=== PATIENT | male | born 1960 | race Caucasian/White ===

== ENCOUNTER → 2017-05-02 | Outpatient (CLI) | payer BC ==
[~2017-05-02] MED LIST: ASPI325T39 PO; ATEN50TA8 PO; POTA-335 PO; SIMV40TA2 PO
--- NOTE | 2017-05-02 11:20 | DIAGNOSTIC IMAGING REPORT ---
TWO VIEW CHEST CLINICAL HISTORY: Cough. FINDINGS: PA and lateral chest radiographs are compared to study dated 05/14/2014. The heart is enlarged and there is atherosclerotic calcification of the thoracic aorta. The pulmonary vasculature is noncongested. Bibasilar opacities are typical in appearance for atelectasis. No airspace consolidation is seen typical for pneumonia and there is no pleural effusion. There is no pneumothorax. The bony thorax appears intact. Fusion hardware is seen in the lower cervical spine. IMPRESSION: Cardiomegaly with no acute cardiopulmonary abnormality. Electronically signed by: Quinton Lewis M.D. 05/02/2017 11:18 AM Dictated Date/Time: 05/02/2017 11:17 AM
== END | disposition home or self-care (01) ==
LOC: C.RAD1850 11:12
PROVIDERS: ATTEND Student in an Organized Health Care Education/Training Program
DX: R05 Cough (principal); I51.7 Cardiomegaly

== ENCOUNTER → 2017-06-05 | Outpatient (CLI) | payer OTHER ==
--- NOTE | 2017-06-05 12:53 | DIAGNOSTIC IMAGING REPORT ---
CT LUNG SCREENING, LOW DOSE WITH COMPUTER-AIDED DETECTION (CAD) CLINICAL HISTORY: COPD. Tobacco abuse. COMPARISON STUDY: No previous studies for comparison. CT DOSE: 66.80 mGycm TECHNIQUE: Low-dose helical CT was acquired without intravenous contrast from lung apices to bases and reconstructed at 2.5 mm every 2 mm. CAD was utilized for this study. A dose lowering technique was utilized adhering to the principles of ALARA. FINDINGS: Thyroid: Imaged portions of the thyroid gland are normal in appearance. Thoracic aorta: The thoracic aorta is normal in course and caliber, noting standard 3 vessel arch anatomy. Heart: There are mild coronary artery calcifications Lungs and pleural spaces: There is no focal pulmonary consolidation. There are no suspicious pulmonary masses. Mediastinum: There is no evidence of pathologic mediastinal lymphadenopathy Adriana: There is no evidence of pathologic hilar adenopathy given the limitations of a noncontrast study Axilla: Clear. Upper abdomen: Partially visualized upper abdominal viscera is within normal limits. Skeletal structures: There are no lytic or blastic osseous lesions. IMPRESSION: No suspicious pulmonary masses. Continue annual lung cancer screening.. CAD FINDINGS: Overall Lung RADS Category: 1 Lung RADS Management Recommendation: Continue annual lung cancer screening. Lung RADS Follow Up Date: 2018-06-05 Lung RADS Nodule ID: Electronically signed by: Demetrius Jacobo M.D. 06/05/2017 12:51 PM Dictated Date/Time: 06/05/2017 12:47 PM
== END | disposition home or self-care (01) ==
LOC: C.CTS 12:07
PROVIDERS: ATTEND Family Medicine
DX: J44.9 Chronic obstructive pulmonary disease, unspecified (principal); F17.200 Nicotine dependence, unspecified, uncomplicated

== ENCOUNTER → 2017-12-17 | Outpatient (CLI) | payer OTHER ==
--- NOTE | 2017-12-18 12:52 | PULMONARY FUNCTION TEST ---
Spirometry is consistent with a mild obstructive pattern. Repeat study done following bronchodilator showed mild, but not significant improvement in function. Flow volume loops are consistent with spirometric findings.
== END | disposition home or self-care (01) ==
LOC: C.RC 10:09
PROVIDERS: ATTEND Student in an Organized Health Care Education/Training Program
DX: Z72.0 Tobacco use (principal)

== ENCOUNTER 2021-02-07 12:44 | Inpatient (IN) ==
[2021-02-07] MEDS ORDERED: diphenhydrAMINE 50 MG/ML VIAL IV STA (13:09)
[2021-02-07] MEDS ORDERED: PROCHLORPERAZINE 5 MG/ML 2 ML VIAL IV STA (13:09)
[2021-02-07] MEDS ORDERED: ACETAMINOPHEN 1000 MG/100 ML IV IV STA (13:09)
[2021-02-07] MEDS ORDERED: dexAMETHasone**PF** 10 MG/ML VIAL IV ONE (13:09)
[2021-02-07] MEDS ORDERED: fentaNYL citrate 100 MCG/2 ML VIAL IV STA (13:09)
[2021-02-07] MEDS ORDERED: SODIUM CHLORIDE 0.9% 1000ML 1,000 ML IV SCH (13:15)
--- NOTE | 2021-02-07 13:25 | Emergency Department Note ---
Impression & Plan Accidental aspirin overdose, Headache, Tachypnea, Acute dehydration, Acidosis ED Provider Note NAME: KIMBERLY FRITZ AGE: 60 SEX: M : 1960 ARRIVES VIA: Ambulance INFORMANT: [Patient] ED PROVIDER(S): [Quinton Bobo MD] CHIEF COMPLAINT: Headache HISTORY OF PRESENT ILLNESS: The patient is a 60-year-old male who complains of intermittent left-sided headache over the last couple weeks. He has been using aspirin for the headache. Sometimes, he has taken 10 aspirin over just an hour or 2. The patient's headache had resolved for a few days and then restarted this morning at 8:00, about 5 hours ago. The headache is left-sided and a 9/10. No nausea, no vomiting, no arm or leg weakness. He has not had fever, chills, cough or congestion. He states he does not typically get headaches. The patient did receive morphine in route with minimal to no relief of his pain. REVIEW OF SYSTEMS: See HPI for pertinent positives and negatives. A total of ten systems were reviewed and were otherwise negative. PMHx/PSHx: See Below SOCIAL HISTORY: See Below. PHYSICAL EXAM: GENERAL: Patient is in no acute distress. HEENT: No acute trauma, normocephalic atraumatic, mucous membranes moist, no nasal congestion, no scleral icterus. Pupils are somewhat small but equal bilaterally. NECK: No stridor, no adenopathy, no meningismus, trachea is midline. LUNGS: Clear to auscultation bilaterally, no wheeze, no rhonchi, breath sounds equal. HEART: Without murmurs gallops or rubs, regular rate and rhythm. ABDOMEN: Soft, nontender, bowel sounds positive, no hernias, no peritonitis. EXTREMITIES: No cyanosis or edema, full range of motion of all the joints without pain or difficulty, no signs for acute trauma. NEUROLOGIC: Oriented x 3, no acute motor or sensory deficits, no focal weakness. SKIN: No rash, no jaundice, no diaphoresis. DIFFERENTIAL DIAGNOSIS: Migraine headache, meningitis, sinusitis, CO exposure, ICH, SAH, infection, tumor, sinus thrombosis, arterial dissection, as well as other pathologies. EMERGENCY DEPARTMENT COURSE/PROCEDURES: Critical Care Note: I have personally spent 52 minutes of critical care time in the direct management of this patient. This includes bedside care, interpretation of diagnostic studies, and testing, discussion with consultants, patient, and family members, and other required patient management activities. This 52 minutes is in excess of all separately billable procedures. MEDICAL DECISION MAKING: There is no leukocytosis or concerning anemia. There is a normal platelet count. Sed rate was not significantly elevated. ABG did demonstrate a mild acidosis with a pH of 7.31. No significant electrolyte abnormality other than a slight elevation to the BUN which is likely from some dehydration. No kidney failure. No concerning liver enzyme elevation. Urinalysis does not show infection. Aspirin level was basically undetectable. Lyme disease testing was negative. Aspirin level was elevated, a repeat aspirin level a few hours later showed an even higher value. Chest film did not show pneumonia or CHF. Brain CT showed no acute bleed or mass-effect. CT angio of the head and neck were per formed, there was no aneurysm, no clot. No findings of dissection. I was called to see the patient as he seemed in distress. He received IV saline 1.5 L. He was given IV Compazine, IV fentanyl, IV Benadryl, IV Decadron, IV Tylenol, he received a DuoNeb. I did speak with poison control. They felt that if the patient showed a decrease in his aspirin level with time that discharge would be appropriate. As the patient was breathing quickly, as he was slightly acidotic, as his aspirin level actually increased during his ER stay, a hospital stay and further monitoring/care was felt warranted. I spoke to the patient, I talked with the case checker. The on-call hospitalist was consulted. Past Med/Surg History Medical History Cluster headache Degenerative disc disease Dyslipidemia Hypertension Lumbar stenosis with neurogenic claudication (01/15/14) Obstructive sleep apnea Surgical History History of cardiac cath History of coronary artery bypass graft History of laminectomy Social History Smoking Status: Current every day smoker Tobacco Type: Cigarettes Cigarettes Per Day: 4; Second Hand Exposure: No; Hx Alcohol Use: Yes Alcohol type: beer Hx Substance Use: No Preferred Language: Cambodian Hearing Ability: Normal Current Living Situation: Alone current occupation: Retired Feels Safe at Home: Yes Allergies Allergies Allergy/AdvReac Type Severity Reaction Status Date / Time No Known Allergies Allergy Verified 01/03/21 12:54 Home Meds Home Medications Medication Instructions Recorded Confirmed pramipexole 0.5 mg tablet (Mirapex) 1.5 mg PO QPM tab 01/04/19 02/07/21 candesartan 32 mg tablet 32 mg PO DAILY 01/13/19 02/07/21 carvedilol 6.25 mg tablet (Coreg) 6.25 mg PO BID 01/13/19 01/03/21 coenzyme Q10 400 mg capsule (Co 400 mg PO DAILY 01/13/19 01/03/21 Q-10) ezetimibe 10 mg tablet 10 mg PO DAILY 01/13/19 01/03/21 ferrous sulfate 325 mg (65 mg 325 mg PO DAILY tab 01/13/19 01/03/21 iron) tablet (iron) hydralazine 100 mg tablet 100 mg PO TID tab 01/13/19 02/07/21 hydrochlorothiazide 25 mg tablet 25 mg PO DAILY 01/13/19 01/03/21 spironolactone 25 mg tablet 25 mg PO DAILY 01/13/19 02/07/21 chlorthalidone 25 mg tablet 25 mg PO DAILY 02/07/21 02/07/21 fluticasone 500 mcg-salmeterol 50 1 inh INHALATION BID 02/07/21 02/07/21 mcg/dose blistr powdr for inhalation (Advair Diskus) labetalol 200 mg tablet 200 mg PO BID 02/07/21 02/07/21 Previous Rx's Medication Instructions Recorded oxycodone-acetaminophen 5 mg-325 1 tab PO Q8H PRN #35 tab 01/29/20 mg tablet (Percocet) Results & Data (ED) Vital Signs Vital Signs - 24 hr 02/07/21 12:31 02/07/21 13:00 02/07/21 13:09 Temperature 36.6 C Temperature Source Oral Pulse Rate 72 63 72 Pulse Rate [Right] Pulse Rate from SpO2 Sensor 62 Pulse Rhythm Regular Regular Pulse Strength Normal Respiratory Rate 24 24 32 H Respiratory Effort / Characteristics Non-Labored Respiratory Depth Deep Blood Pressure 188/96 H 180/87 H Blood Pressure Mean 126 118 Blood Pressure Position Lying Pulse Oximetry 98 93 93 Oxygen Delivery Method Nasal Cannula Room Air Oxygen Flow Rate Sepsis Recent Fever Within 48 Hours No Sepsis New/Unexplained Change in Mental Status No Sepsis Action Taken by Nursing No Action Required 02/07/21 14:06 02/07/21 14:13 02/07/21 15:03 Temperature Temperature Source Pulse Rate Pulse Rate [Right] Pulse Rate from SpO2 Sensor 82 81 80 Pulse Rhythm Pulse Strength Respiratory Rate Respiratory Effort / Characteristics Respiratory Depth Blood Pressure Blood Pressure Mean Blood Pressure Position Pulse Oximetry 99 99 97 Oxygen Delivery Method Oxygen Flow Rate Sepsis Recent Fever Within 48 Hours Sepsis New/Unexplained Change in Mental Status Sepsis Action Taken by Nursing 02/07/21 16:09 Temperature Temperature Source Pulse Rate Pulse Rate [Right] 86 Pulse Rate from SpO2 Sensor Pulse Rhythm Pulse Strength Respiratory Rate 20 Respiratory Effort / Characteristics Non-Labored Spontaneous Respiratory Depth Blood Pressure Blood Pressure Mean Blood Pressure Position Pulse Oximetry 98 Oxygen Delivery Method Nasal Cannula Oxygen Flow Rate 3 Sepsis Recent Fever Within 48 Hours Sepsis New/Unexplained Change in Mental Status Sepsis Action Taken by Skilled Nursing Medications Current Medication List: was personally reviewed by me Laboratory Data Attestation: I reviewed the patient's lab results. Result diagrams: 02/07/21 13:37 02/07/21 13:37 Lab Results 02/07/21 02/07/21 02/07/21 Range/Units 13:37 13:37 13:37 WBC 8.94 (4.8-10.8) K/uL RBC 4.51 L (4.7-6.1) M/uL Hgb 14.2 (14.0-18.0) g/dL POC Hgb (14.0-18.0) g/dl Hct 43.2 (42-52) % POC Hct (42-52) % MCV 95.8 (80-100) fL MCH 31.5 (25-34) pg MCHC 32.9 (32-36) g/dL RDW Std Deviation 51.5 H (36.4-46.3) fL RDW Coeff of Patrice 14.6 H (11.5-14.5) % Plt Count 137 (130-400) K/uL MPV 11.8 H (7.4-10.4) fL Immature Gran % (Auto) 0.2 % Neut % (Auto) 77.2 % Lymph % (Auto) 14.1 % Calhoun % (Auto) 3.6 % Eos % (Auto) 4.5 % Baso % (Auto) 0.4 % Neut # (Auto) 6.90 H (1.4-6.5) K/uL Lymph # (Auto) 1.26 (1.2-3.4) K/uL Calhoun # (Auto) 0.32 (0.11-0.59) K/uL Eos # (Auto) 0.40 (0-0.5) K/uL Baso # (Auto) 0.04 (0-0.2) K/uL Immature Gran # (Auto) 0.02 (0.00-0.02) K/uL ESR 15 (0-20) mm/hr ABG pH (7.35-7.45) ABG pCO2 (35-46) mmHg ABG pO2 (80-95) mmHg ABG HCO3 (19-24) mmol/L ABG O2 Saturation (90-95) % ABG Base Excess (-9-1.8) mEq/L Brendon Test (Pos) Carboxyhemoglobin % THgb Barometric Pressure mm/Hg Oxygen Given POC Sodium (135-144) mmol/L Sodium 140 (136-145) mmol/L POC Potassium (3.3-5.0) mmol/L Potassium 3.7 (3.5-5.1) mmol/L POC Chloride (101-112) mmol/L Chloride 107 (98-107) mmol/L Carbon Dioxide 25 (21-32) mmol/L POC Total CO2 (24-31) mmol/L Anion Gap 7.0 (3-11) POC Anion Gap (16-25) mmol/L POC BUN (7-18) mg/dl BUN 31 H (7-18) mg/dl Creatinine 0.97 (0.6-1.4) mg/dl POC Creatinine (0.6-1.3) mg/dl Est Cr Clr Drug Dosing Not Reportable Est GFR ( Amer) 96.6 ml/min Est GFR (Non-Af Amer) 83.3 ml/min BUN/Creatinine Ratio 31.9 H (10-20) Glucose 113 H (70-99) mg/dl POC Glucose (other) (70-99) mg/dl Calcium 8.9 (8.5-10.1) mg/dl POC Ioniz Calcium Sourav (1.12-1.32) mmol/l Total Bilirubin 0.4 (0.2-1) mg/dl AST 14 L (15-37) U/L ALT 25 (12-78) U/L Alkaline Phosphatase 113 (45-117) U/L Total Protein 7.3 (6.4-8.2) gm/dl Albumin 3.9 (3.4-5.0) gm/dl Globulin 3.4 (2.5-4.0) gm/dl Albumin/Globulin Ratio 1.2 (0.9-2) Urine Color Urine Appearance (Clear) Urine pH (4.5-7.5) Ur Specific [place] (1.000-1.030) Urine Protein (Negative) Urine Glucose (UA) (Negative) Urine Ketones (Negative) Urine Blood (Negative) Urine Nitrite (Negative) Urine Bilirubin (Negative) Urine Urobilinogen (Negative) Ur Leukocyte Esterase (Negative) Salicylates (2.8-20) mg/dl Acetaminophen (10-30) ug/ml Lyme Disease IgG Ab (Negative) Lyme Disease IgM Ab (Negative) 02/07/21 02/07/21 02/07/21 Range/Units 13:37 13:37 13:37 WBC (4.8-10.8) K/uL RBC (4.7-6.1) M/uL Hgb (14.0-18.0) g/dL POC Hgb (14.0-18.0) g/dl Hct (42-52) % POC Hct (42-52) % MCV (80-100) fL MCH (25-34) pg MCHC (32-36) g/dL RDW Std Deviation (36.4-46.3) fL RDW Coeff of Patrice (11.5-14.5) % Plt Count (130-400) K/uL MPV (7.4-10.4) fL Immature Gran % (Auto) % Neut % (Auto) % Lymph % (Auto) % Calhoun % (Auto) % Eos % (Auto) % Baso % (Auto) % Neut # (Auto) (1.4-6.5) K/uL Lymph # (Auto) (1.2-3.4) K/uL Calhoun # (Auto) (0.11-0.59) K/uL Eos # (Auto) (0-0.5) K/uL Baso # (Auto) (0-0.2) K/uL Immature Gran # (Auto) (0.00-0.02) K/uL ESR (0-20) mm/hr ABG pH (7.35-7.45) ABG pCO2 (35-46) mmHg ABG pO2 (80-95) mmHg ABG HCO3 (19-24) mmol/L ABG O2 Saturation (90-95) % ABG Base Excess (-9-1.8) mEq/L Brendon Test (Pos) Carboxyhemoglobin 0.0 % THgb Barometric Pressure mm/Hg Oxygen Given POC Sodium (135-144) mmol/L Sodium (136-145) mmol/L POC Potassium (3.3-5.0) mmol/L Potassium (3.5-5.1) mmol/L POC Chloride (101-112) mmol/L Chloride (98-107) mmol/L Carbon Dioxide (21-32) mmol/L POC Total CO2 (24-31) mmol/L Anion Gap (3-11) POC Anion Gap (16-25) mmol/L POC BUN (7-18) mg/dl BUN (7-18) mg/dl Creatinine (0.6-1.4) mg/dl POC Creatinine (0.6-1.3) mg/dl Est Cr Clr Drug Dosing Est GFR ( Amer) ml/min Est GFR (Non-Af Amer) ml/min BUN/Creatinine Ratio (10-20) Glucose (70-99) mg/dl POC Glucose (other) (70-99) mg/dl Calcium (8.5-10.1) mg/dl POC Ioniz Calcium Sourav (1.12-1.32) mmol/l Total Bilirubin (0.2-1) mg/dl AST (15-37) U/L ALT (12-78) U/L Alkaline Phosphatase (45-117) U/L Total Protein (6.4-8.2) gm/dl Albumin (3.4-5.0) gm/dl Globulin (2.5-4.0) gm/dl Albumin/Globulin Ratio (0.9-2) Urine Color Urine Appearance (Clear) Urine pH (4.5-7.5) Ur Specific [place] (1.000-1.030) Urine Protein (Negative) Urine Glucose (UA) (Negative) Urine Ketones (Negative) Urine Blood (Negative) Urine Nitrite (Negative) Urine Bilirubin (Negative) Urine Urobilinogen (Negative) Ur Leukocyte Esterase (Negative) Salicylates 18.8 (2.8-20) mg/dl Acetaminophen (10-30) ug/ml Lyme Disease IgG Ab Negative (Negative) Lyme Disease IgM Ab Negative (Negative) 02/07/21 02/07/21 02/07/21 Range/Units 13:37 13:45 14:14 WBC (4.8-10.8) K/uL RBC (4.7-6.1) M/uL Hgb (14.0-18.0) g/dL POC Hgb 14.6 (14.0-18.0) g/dl Hct (42-52) % POC Hct 43 (42-52) % MCV (80-100) fL MCH (25-34) pg MCHC (32-36) g/dL RDW Std Deviation (36.4-46.3) fL RDW Coeff of Patrice (11.5-14.5) % Plt Count (130-400) K/uL MPV (7.4-10.4) fL Immature Gran % (Auto) % Neut % (Auto) % Lymph % (Auto) % Calhoun % (Auto) % Eos % (Auto) % Baso % (Auto) % Neut # (Auto) (1.4-6.5) K/uL Lymph # (Auto) (1.2-3.4) K/uL Calhoun # (Auto) (0.11-0.59) K/uL Eos # (Auto) (0-0.5) K/uL Baso # (Auto) (0-0.2) K/uL Immature Gran # (Auto) (0.00-0.02) K/uL ESR (0-20) mm/hr ABG pH (7.35-7.45) ABG pCO2 (35-46) mmHg ABG pO2 (80-95) mmHg ABG HCO3 (19-24) mmol/L ABG O2 Saturation (90-95) % ABG Base Excess (-9-1.8) mEq/L Brendon Test (Pos) Carboxyhemoglobin % THgb Barometric Pressure mm/Hg Oxygen Given POC Sodium 140 (135-144) mmol/L Sodium (136-145) mmol/L POC Potassium 3.7 (3.3-5.0) mmol/L Potassium (3.5-5.1) mmol/L POC Chloride 105 (101-112) mmol/L Chloride (98-107) mmol/L Carbon Dioxide (21-32) mmol/L POC Total CO2 23 L (24-31) mmol/L Anion Gap (3-11) POC Anion Gap 17.0 (16-25) mmol/L POC BUN 30 H (7-18) mg/dl BUN (7-18) mg/dl Creatinine (0.6-1.4) mg/dl POC Creatinine 0.9 (0.6-1.3) mg/dl Est Cr Clr Drug Dosing Est GFR ( Amer) ml/min Est GFR (Non-Af Amer) ml/min BUN/Creatinine Ratio (10-20) Glucose (70-99) mg/dl POC Glucose (other) 113 H (70-99) mg/dl Calcium (8.5-10.1) mg/dl POC Ioniz Calcium Sourav 1.21 (1.12-1.32) mmol/l Total Bilirubin (0.2-1) mg/dl AST (15-37) U/L ALT (12-78) U/L Alkaline Phosphatase (45-117) U/L Total Protein (6.4-8.2) gm/dl Albumin (3.4-5.0) gm/dl Globulin (2.5-4.0) gm/dl Albumin/Globulin Ratio (0.9-2) Urine Color Yellow Urine Appearance Clear (Clear) Urine pH 5.5 (4.5-7.5) Ur Specific [place] 1.015 (1.000-1.030) Urine Protein Negative (Negative) Urine Glucose (UA) Negative (Negative) Urine Ketones Negative (Negative) Urine Blood Negative (Negative) Urine Nitrite Negative (Negative) Urine Bilirubin Negative (Negative) Urine Urobilinogen Negative (Negative) Ur Leukocyte Esterase Negative (Negative) Salicylates (2.8-20) mg/dl Acetaminophen 5 L (10-30) ug/ml Lyme Disease IgG Ab (Negative) Lyme Disease IgM Ab (Negative) 02/07/21 02/07/21 Range/Units 14:30 16:00 WBC (4.8-10.8) K/uL RBC (4.7-6.1) M/uL Hgb (14.0-18.0) g/dL POC Hgb (14.0-18.0) g/dl Hct (42-52) % POC Hct (42-52) % MCV (80-100) fL MCH (25-34) pg MCHC (32-36) g/dL RDW Std Deviation (36.4-46.3) fL RDW Coeff of Patrice (11.5-14.5) % Plt Count (130-400) K/uL MPV (7.4-10.4) fL Immature Gran % (Auto) % Neut % (Auto) % Lymph % (Auto) % Calhoun % (Auto) % Eos % (Auto) % Baso % (Auto) % Neut # (Auto) (1.4-6.5) K/uL Lymph # (Auto) (1.2-3.4) K/uL Calhoun # (Auto) (0.11-0.59) K/uL Eos # (Auto) (0-0.5) K/uL Baso # (Auto) (0-0.2) K/uL Immature Gran # (Auto) (0.00-0.02) K/uL ESR (0-20) mm/hr ABG pH 7.31 L (7.35-7.45) ABG pCO2 44 (35-46) mmHg ABG pO2 142 H (80-95) mmHg ABG HCO3 22 (19-24) mmol/L ABG O2 Saturation 98.8 H (90-95) % ABG Base Excess -4.7 (-9-1.8) mEq/L Brendon Test Pos (Pos) Carboxyhemoglobin % THgb Barometric Pressure 737.9 mm/Hg Oxygen Given 3L POC Sodium (135-144) mmol/L Sodium (136-145) mmol/L POC Potassium (3.3-5.0) mmol/L Potassium (3.5-5.1) mmol/L POC Chloride (101-112) mmol/L Chloride (98-107) mmol/L Carbon Dioxide (21-32) mmol/L POC Total CO2 (24-31) mmol/L Anion Gap (3-11) POC Anion Gap (16-25) mmol/L POC BUN (7-18) mg/dl BUN (7-18) mg/dl Creatinine (0.6-1.4) mg/dl POC Creatinine (0.6-1.3) mg/dl Est Cr Clr Drug Dosing Est GFR ( Amer) ml/min Est GFR (Non-Af Amer) ml/min BUN/Creatinine Ratio (10-20) Glucose (70-99) mg/dl POC Glucose (other) (70-99) mg/dl Calcium (8.5-10.1) mg/dl POC Ioniz Calcium Sourav (1.12-1.32) mmol/l Total Bilirubin (0.2-1) mg/dl AST (15-37) U/L ALT (12-78) U/L Alkaline Phosphatase (45-117) U/L Total Protein (6.4-8.2) gm/dl Albumin (3.4-5.0) gm/dl Globulin (2.5-4.0) gm/dl Albumin/Globulin Ratio (0.9-2) Urine Color Urine Appearance (Clear) Urine pH (4.5-7.5) Ur Specific [place] (1.000-1.030) Urine Protein (Negative) Urine Glucose (UA) (Negative) Urine Ketones (Negative) Urine Blood (Negative) Urine Nitrite (Negative) Urine Bilirubin (Negative) Urine Urobilinogen (Negative) Ur Leukocyte Esterase (Negative) Salicylates 20.3 H (2.8-20) mg/dl Acetaminophen (10-30) ug/ml Lyme Disease IgG Ab (Negative) Lyme Disease IgM Ab (Negative) Administered Medications Discontinued Medications Acetaminophen (Acetaminophen 1000 Mg/100 Ml Iv) 1,000 mg IV NOW STA Stop: 02/07/21 13:10 Last Admin: 02/07/21 13:30 Dose: 1,000 mg Documented by: [id number] Albuterol (Albut/Ipratrop 3mg/0.5mg Neb 3 Ml Vial) 3 ml NEB NOW STA Stop: 02/07/21 15:57 Last Admin: 02/07/21 16:08 Dose: 3 ml Documented by: [id number] Dexamethasone Sodium Phosphate (DexamethasonePf 10 Mg/Ml Vial) 10 mg IV NOW ONE Stop: 02/07/21 13:10 Last Admin: 02/07/21 13:30 Dose: 10 mg Documented by: [id number] Diphenhydramine HCl (Diphenhydramine 50 Mg/Ml Vial) 25 mg IV NOW STA Stop: 02/07/21 13:10 Last Admin: 02/07/21 13:28 Dose: 25 mg Documented by: [id number] Fentanyl Citrate (Fentanyl Citrate 100 Mcg/2 Ml Vial) 100 mcg IV NOW STA Stop: 02/07/21 13:10 Last Admin: 02/07/21 13:25 Dose: 100 mcg Documented by: [id number] Sodium Chloride (Nss 1000ml) 1,000 mls @ 999 mls/hr IV .Q1H1M CARLO Stop: 02/07/21 14:15 Last Infusion: 02/07/21 14:28 Dose: 0 mls/hr Documented by: [id number] Admin: 02/07/21 13:25 Dose: 999 mls/hr Documented by: [id number] Sodium Chloride (Nss 1000ml) 500 mls @ 999 mls/hr IV .Q31M ONE Stop: 02/07/21 16:01 Last Infusion: 02/07/21 16:22 Dose: 999 mls/hr Documented by: [id number] Admin: 02/07/21 15:37 Dose: 999 mls/hr Documented by: [id number] Ioversol (Optiray 320 125ml) 119 ml IV ONCE ONE Stop: 02/07/21 13:57 Last Admin: 02/07/21 13:57 Dose: 119 ml Documented by: [id number] Pramipexole Dihydrochloride (Pramipexole Dihydrochlo 0.5 Mg Tab) 0.5 mg PO NOW STA Stop: 02/07/21 15:30 Last Admin: 02/07/21 15:57 Dose: 0.5 mg Documented by: [id number] Prochlorperazine (Prochlorperazine 5 Mg/Ml 2 Ml Vial) 10 mg IV NOW STA Stop: 02/07/21 13:10 Last Admin: 02/07/21 13:27 Dose: 10 mg Documented by: [id number] Imaging Data Radiologist's Impression: Head CTA 02/07/21 13:09 CT head/brain wo con, CT angio neck with con, CT angio head w con CLINICAL HISTORY: 60 years-old Male with Headache. Acute severe headache TECHNIQUE: Multiple axial CT images of the head were obtained without contrast. CTA head and neck was also obtained following the intravenous ministration of 119 mL Optiray 320. 3-D coronal and sagittal MIPS were obtained from the axial data set and were submitted for review. All measurements were obtained according to NASCET criteria. A dose lowering technique was utilized adhering to the principles of ALARA. CT DOSE: 1411.64 mGy.cm COMPARISON: Head CT 01/29/2020 FINDINGS: CT HEAD: No acute intracranial hemorrhage, midline shift, intracranial mass, hydrocephalus, territorial ischemia or abnormal extra-axial collection. Low- lying cerebellar tonsils. Cerebral vascular calcifications. The calvarium is intact. Right greater than left mastoid effusions redemonstrated along with fluid within the right middle ear cavity. Mild mucosal thickening of the ethmoid air cells. Unremarkable soft tissues and orbits. CTA HEAD AND NECK: Prior median sternotomy. Three-vessel morphology of the thoracic aortic arch. Patent innominate and imaged proximal subclavian arteries. Atherosclerotic plaque of the left greater than right carotid bulbs results in less than 50% stenosis of the bilateral internal carotid arteries. Additional atherosclerotic plaque of the cavernous and supraclinoid segments without high-grade stenosis. The middle and anterior cerebral arteries appear patent with areas of multifocal luminal narrowing. Codominant and widely patent vertebral arteries. There is calcified plaque of the bilateral V4 segments without significant stenosis. The basilar and posterior cerebral arteries are patent. The cerebral venous sinuses are patent. There is no abnormal intracranial enhancement. The lung apices are clear. No pneumothorax. Unremarkable thyroid. Anterior plate and screw fusion with discectomy changes at C5-C7. Mild mucoperiosteal thicke khadra of the ethmoid and maxillary sinuses. Right greater than left mastoid effusions. IMPRESSION: 1. No acute intracranial abnormality. 2. Atherosclerotic plaque of the left greater than right carotid bulbs results in less than 50% stenosis bilaterally. There is no aneurysm, dissection, high- grade stenosis or arterial occlusion identified. 3. Right greater than left mastoid effusions with fluid in the right middle ear cavity redemonstrated. ACT 112: Negative or not required by law. The above report was generated using voice recognition software. It may contain grammatical, syntax or spelling errors. Electronically signed by: Andrew Pascual M.D. 02/07/2021 2:23 PM Neck CTA 02/07/21 13:09 CT head/brain wo con, CT angio neck with con, CT angio head w con CLINICAL HISTORY: 60 years-old Male with Headache. Acute severe headache TECHNIQUE: Multiple axial CT images of the head were obtained without contrast. CTA head and neck was also obtained following the intravenous ministration of 119 mL Optiray 320. 3-D coronal and sagittal MIPS were obtained from the axial data set and were submitted for review. All measurements were obtained according to NASCET criteria. A dose lowering technique was utilized adhering to the principles of ALARA. CT DOSE: 1411.64 mGy.cm COMPARISON: Head CT 01/29/2020 FINDINGS: CT HEAD: No acute intracranial hemorrhage, midline shift, intracranial mass, hydrocephalus, territorial ischemia or abnormal extra-axial collection. Low- lying cerebellar tonsils. Cerebral vascular calcifications. The calvarium is intact. Right greater than left mastoid effusions redemonstrated along with fluid within the right middle ear cavity. Mild mucosal thickening of the ethmoid air cells. Unremarkable soft tissues and orbits. CTA HEAD AND NECK: Prior median sternotomy. Three-vessel morphology of the thoracic aortic arch. Patent innominate and imaged proximal subclavian arteries. Atherosclerotic plaque of the left greater than right carotid bulbs results in less than 50% stenosis of the bilateral internal carotid arteries. Additional atherosclerotic plaque of the cavernous and supraclinoid segments without high-grade stenosis. The middle and anterior cerebral arteries appear patent with areas of multifocal luminal narrowing. Codominant and widely patent vertebral arteries. There is calcified plaque of the bilateral V4 segments without significant stenosis. The basilar and posterior cerebral arteries are patent. The cerebral venous sinuses are patent. There is no abnormal intracranial enhancement. The lung apices are clear. No pneumothorax. Unremarkable thyroid. Anterior plate and screw fusion with discectomy changes at C5-C7. Mild mucoperiosteal thickening of the ethmoid and maxillary sinuses. Right greater than left mastoid effusions. IMPRESSION: 1. No acute intracranial abnormality. 2. Atherosclerotic plaque of the left greater than right carotid bulbs results in less than 50% stenosis bilaterally. There is no aneurysm, dissection, high- grade stenosis or arterial occlusion identified. 3. Right greater than left mastoid effusions with fluid in the right middle ear cavity redemonstrated. ACT 112: Negative or not required by law. The above report was generated using voice recognition software. It may contain grammatical, syntax or spelling errors. Electronically signed by: Andrew Pascual M.D. 02/07/2021 2:[address] 02/07/21 13:10 CT head/brain wo con, CT angio neck with con, CT angio head w con CLINICAL HISTORY: 60 years-old Male with Headache. Acute severe headache TECHNIQUE: Multiple axial CT images of the head were obtained without contrast. CTA head and neck was also obtained following the intravenous ministration of 119 mL Optiray 320. 3-D coronal and sagittal MIPS were obtained from the axial data set and were submitted for review. All measurements were obtained according to NASCET criteria. A dose lowering technique was utilized adhering to the principles of ALARA. CT DOSE: 1411.64 mGy.cm COMPARISON: Head CT 01/29/2020 FINDINGS: CT HEAD: No acute intracranial hemorrhage, midline shift, intracranial mass, hydrocephalus, territorial ischemia or abnormal extra-axial collection. Low- lying cerebellar tonsils. Cerebral vascular calcifications. The calvarium is intact. Right greater than left mastoid effusions redemonstrated along with fluid within the right middle ear cavity. Mild mucosal thickening of the ethmoid air cells. Unremarkable soft tissues and orbits. CTA HEAD AND NECK: Prior median sternotomy. Three-vessel morphology of the thoracic aortic arch. Patent innominate and imaged proximal subclavian arteries. Atherosclerotic plaque of the left greater than right carotid bulbs results in less than 50% stenosis of the bilateral internal carotid arteries. Additional atherosclerotic plaque of the cavernous and supraclinoid segments without high-grade stenosis. The middle and anterior cerebral arteries appear patent with areas of multifocal luminal narrowing. Codominant and widely patent vertebral arteries. There is calcified plaque of the bilateral V4 segments without significant stenosis. The basilar and posterior cerebral arteries are patent. The cerebral venous sinuses are patent. There is no abnormal intracranial enhancement. The lung apices are clear. No pneumothorax. Unremarkable thyroid. Anterior plate and screw fusion with discectomy changes at C5-C7. Mild mucoperiosteal thickening of the ethmoid and maxillary sinuses. Right greater than left mastoid effusions. IMPRESSION: 1. No acute intracranial abnormality. 2. Atherosclerotic plaque of the left greater than right carotid bulbs results in less than 50% stenosis bilaterally. There is no aneurysm, dissection, high- grade stenosis or arterial occlusion identified. 3. Right greater than left mastoid effusions with fluid in the right middle ear cavity redemonstrated. ACT 112: Negative or not required by law. The above report was generated using voice recognition software. It may contain grammatical, syntax or spelling errors. Electronically signed by: Andrew Pascual M.D. 02/07/2021 2:23 PM Chest X-Ray 02/07/21 15:56 XR chest 1V portable CLINICAL HISTORY: Shortness of breath. COMPARISON STUDY: Chest radiograph and chest CT January 29, 2020. FINDINGS: There are median sternotomy wires, mediastinal surgical clips and postoperative findings within the spine. Note is made of cardiomegaly, unchanged . There is no pneumothorax or pleural effusion. There is pulmonary vascular congestion without overt pulmonary edema. IMPRESSION: No significant change in appearance of the chest. Cardiomegaly with pulmonary vascular congestion. No overt pulmonary edema. ACT 112: Negative or not required by law. Electronically signed by: Krystian Tolbert M.D. 02/07/2021 4:34 PM Discharge Plan Visit Data Chief Complaint: Headache Stated Complaint: HEADACHE ED Provider: Quinton Bobo Discharge Problem: Accidental aspirin overdose, Headache, Tachypnea, Acute dehydration, Acidosis Patient Disposition: Admitted As Inpatient Condition: Fair Forms [facility] Prescriptions: No Action pramipexole [Mirapex] 0.5 mg tablet 1.5 mg PO QPM RF: 0 hydralazine 100 mg tablet 100 mg PO TID RF: 0 carvedilol [Coreg] 6.25 mg tablet 6.25 mg PO BID RF: 0 hydrochlorothiazide 25 mg tablet 25 mg PO DAILY RF: 0 spironolactone 25 mg tablet 25 mg PO DAILY RF: 0 candesartan 32 mg tablet 32 mg PO DAILY RF: 0 ferrous sulfate [iron] 325 mg (65 mg iron) tablet 325 mg PO DAILY RF: 0 coenzyme Q10 [Co Q-10] 400 mg capsule 400 mg PO DAILY RF: 0 ezetimibe 10 mg tablet 10 mg PO DAILY RF: 0 oxycodone-acetaminophen [Percocet] 5-325 mg tablet 1 tab PO Q8H PRN (Reason: pain) Qty: 35 RF: 0 labetalol 200 mg tablet 200 mg PO BID RF: 0 chlorthalidone 25 mg tablet 25 mg PO DAILY RF: 0 fluticasone propion-salmeterol [Advair Diskus] 500-50 mcg/dose blister with device 1 inh INHALATION BID RF: 0 Referrals Referrals: Guillermo Stafford DO [Primary Care Provider] -
[2021-02-07 13:50] LABS: Basophils # (auto) 0.04 K/uL (0-0.2); Basophils % (auto) 0.4 %; Eosinophils % (auto) 4.5 %; Hematocrit (blood only) 43.2 % (42-52); Hemoglobin 14.2 g/dL (14.0-18.0); Immature Granulocytes # (auto) 0.02 K/uL (0.00-0.02); Immature Granulocytes % (auto) 0.2 %; Lymphocytes # (auto) 1.26 K/uL (1.2-3.4); Lymphocytes % (auto) 14.1 %; Mean Corpuscular Hemoglobin 31.5 pg (25-34); Mean Corpuscular Hgb Conc 32.9 g/dL (32-36); Mean Corpuscular Volume 95.8 fL (80-100); Mean Platelet Volume 11.8 fL (7.4-10.4); Monocytes # (auto) 0.32 K/uL (0.11-0.59); Monocytes % (auto) 3.6 %; Neutrophils % (auto) 77.2 %; Platelet Count 137 K/uL (130-400); RDW Coefficient of Variation 14.6 % (11.5-14.5); RDW Standard Deviation 51.5 fL (36.4-46.3); Red Blood Count 4.51 M/uL (4.7-6.1); White Blood Count 8.94 K/uL (4.8-10.8)
[2021-02-07] MEDS ORDERED: OPTIRAY 320 125ml IV ONE (13:56)
[2021-02-07 13:58] LABS: iSTAT Creatinine 0.9 mg/dl (0.6-1.3); iSTAT Hemoglobin 14.6 g/dl (14.0-18.0); iSTAT Ionized Calcium 1.21 mmol/l (1.12-1.32); iSTAT Potassium 3.7 mmol/L (3.3-5.0)
[2021-02-07 14:16] LABS: Albumin Level 3.9 gm/dl (3.4-5.0); Aspartate Aminotransferase 14 U/L (15-37); BUN Creatinine Ratio 31.9 (10-20); Blood Urea Nitrogen 31 mg/dl (7-18); Calcium 8.9 mg/dl (8.5-10.1); Carbon Dioxide 25 mmol/L (21-32); Chloride 107 mmol/L (98-107); Est GFR (African American) 96.6 ml/min; Est GFR (Non-African American) 83.3 ml/min; Glucose 113 mg/dl (70-99); Potassium 3.7 mmol/L (3.5-5.1); Sodium 140 mmol/L (136-145)
[2021-02-07 14:19] LABS: Alanine Aminotransferase 25 U/L (12-78); Albumin Globulin Ratio 1.2 (0.9-2); Alkaline Phosphatase 113 U/L (45-117); Bilirubin,Total 0.4 mg/dl (0.2-1); Globulin 3.4 gm/dl (2.5-4.0); Total Protein 7.3 gm/dl (6.4-8.2)
--- NOTE | 2021-02-07 14:24 | CT Scan Report ---
CT head/brain wo con, CT angio neck with con, CT angio head w con CLINICAL HISTORY: 60 years-old Male with Headache. Acute severe headache TECHNIQUE: Multiple axial CT images of the head were obtained without contrast. CTA head and neck was also obtained following the intravenous ministration of 119 mL Optiray 320. 3-D coronal and sagittal MIPS were obtained from the axial data set and were submitted for review. All measurements were obta ined according to NASCET criteria. A dose lowering technique was utilized adhering to the principles of ALARA. CT DOSE: 1411.64 mGy.cm COMPARISON: Head CT 01/29/2020 FINDINGS: CT HEAD: No acute intracranial hemorrhage, midline shift, intracranial mass, hydrocephalus, territorial ischem ia or abnormal extra-axial collection. Low-lying cerebellar tonsils. Cerebral vascular calcifications . The calvarium is intact. Right greater than left mastoid effusions redemonstrated along with fluid w ithin the right middle ear cavity. Mild mucosal thickening of the ethmoid air cells. Unremarkable sof t tissues and orbits. CTA HEAD AND NECK: Prior median sternotomy. Three-vessel morphology of the thoracic aortic arch. Patent innominate and i vaibhav proximal subclavian arteries. Atherosclerotic plaque of the left greater than right carotid bul bs results in less than 50% stenosis of the bilateral internal carotid arteries. Additional atheroscl erotic plaque of the cavernous and supraclinoid segments without high-grade stenosis. The middle and anterior cerebral arteries appear patent with areas of multifocal luminal narrowing. Codominant and w idely patent vertebral arteries. There is calcified plaque of the bilateral V4 segments without signi ficant stenosis. The basilar and posterior cerebral arteries are patent. The cerebral venous sinuses are patent. There is no abnormal intracranial enhancement. The lung apices are clear. No pneumothorax. Unremarkable thyroid. Anterior plate and screw fusion wit h discectomy changes at C5-C7. Mild mucoperiosteal thickening of the ethmoid and maxillary sinuses. R ight greater than left mastoid effusions. IMPRESSION: 1. No acute intracranial abnormality. 2. Atherosclerotic plaque of the left greater than right carotid bulbs results in less than 50% steno sis bilaterally. There is no aneurysm, dissection, high-grade stenosis or arterial occlusion identifi ed. 3. Right greater than left mastoid effusions with fluid in the right middle ear cavity redemonstrated . ACT 112: Negative or not required by law. The above report was generated using voice recognition software. It may contain grammatical, syntax o r spelling errors. Electronically signed by: Andrew Pascual M.D. 02/07/2021 2:23 PM
[2021-02-07 14:32] LABS: Lyme Ab IgG w/WB Rflx Negative (Negative); Lyme Ab IgM w/WB Rflx Negative (Negative)
[2021-02-07 14:42] LABS: Allen Test Pos (Pos); Base Excess ABG -4.7 mEq/L (-9-1.8); HCO3 ABG 22 mmol/L (19-24); Oxygen Saturation ABG 98.8 % (90-95); PCO2 ABG 44 mmHg (35-46); PO2 ABG 142 mmHg (80-95); pH ABG 7.31 (7.35-7.45)
[2021-02-07 15:12] LABS: Appearance Urine Clear (Clear); Bilirubin Urine Negative (Negative); Blood Urine Negative (Negative); Color Urine Yellow; Glucose Urine UA Negative (Negative); Ketones Urine Negative (Negative); Leukocyte Esterase Urine Negative (Negative); Nitrite Urine Negative (Negative); Protein Urine Negative (Negative); Specific Gravity Urine 1.015 (1.000-1.030); Urobilinogen Urine Negative (Negative); pH Urine 5.5 (4.5-7.5)
[2021-02-07] MEDS ORDERED: PRAMIPEXOLE DIHYDROCHLO 0.5 MG TAB PO STA (15:29)
[2021-02-07] MEDS ORDERED: SODIUM CHLORIDE 0.9% 1000ML 500 ML IV ONE (15:31)
[2021-02-07] MEDS ORDERED: ALBUT/IPRATROP 3MG/0.5MG NEB 3 ML VIAL NEB STA (15:56)
--- NOTE | 2021-02-07 16:36 | XRay Report ---
XR chest 1V portable CLINICAL HISTORY: Shortness of breath. COMPARISON STUDY: Chest radiograph and chest CT January 29, 2020. FINDINGS: There are median sternotomy wires, mediastinal surgical clips and postoperative findings wi thin the spine. Note is made of cardiomegaly, unchanged. There is no pneumothorax or pleural effusion . There is pulmonary vascular congestion without overt pulmonary edema. IMPRESSION: No significant change in appearance of the chest. Cardiomegaly with pulmonary vascular c ongestion. No overt pulmonary edema. ACT 112: Negative or not required by law. Electronically signed by: Krystian Tolbert M.D. 02/07/2021 4:34 PM
--- NOTE | 2021-02-07 17:46 | History & Physical Report ---
Date of Service February 07, 2021 Assessment & Plan (1) Accidental aspirin overdose: Plan: As per HPI taking for his headache- ~ 24 tabs/24 hours- last dose was around 10- 11 oclock today - Level currently 20.3- tinnitus, sleepiness - PH 7.31 with HCO3 22 - LR at 125 ml per hour now - IF level continues to increase and PH decreases any further would alkalize the patient with isotonic/hypertonicHCO3 drip - Follow serum K - 3.7 ---40meq PO x1 now - Appears severely fatigued however may also be part of aspirin level-follow serum glucose levels - If mentation changes consider D50- alkalinize- noting poor correlation with levels and tissue toxicity - Continue to allow tachypnea following VBGs/ EtCO2 - VBG now, salicylate level at 1900 - continue following per ICU - q2-4 hours (2) Headache: Plan: ? cluster headache- CTA of the head and neck negative, as well noting venous sinuses clear - Toradol and x1 now - received Tylenol and Fentanyl in the EMD - with ESR being low and lack of other assessments- will hold on steroids for now - If aspirin level decreases and PH remains stable consider adding in other agents as RR and PH dictate (3) Acidosis: Plan: Mild at this time- reach euvolemia - as above consider alkaline therapy for decreasing PH, HCo3, and increasing salicylate level - VBG recheck- 7. - Continue to follow closely q2-4 defer to ICU - EtCO2 monitoring ordered (4) Obstructive sleep apnea: Plan: CPAP of 12 at home - patient's daughter to bring in home machine (5) Degenerative disc disease: Plan: Stable no acute needs (6) Hypertension: Plan: Continue Labetalol, continue hydralazine, continue candesartan, continue chlorthalidone - Meds verified from most recent outpatient visit (7) Dyslipidemia: Plan: Continue zetia (8) Cluster headache: Plan: As above (9) Restless leg syndrome: Plan: Continue pramipexole History of Present Illness Primary Care Provider: Guillermo Stafford, DO 60 YOM with past medical history of: CAD, CABG x3 (fonseca to LAD), severe restless leg syndrome/comnambulism, atrial myxoma removal, cluster headaches, RUBEN. Patient comes to the EMD today for complaints of headache for 2 weeks, the headache is located on the left side of his head at his muslim. Feels sharp and stabbing in nature, this does not radiate and is associated with not being able to sleep. He has no nausea or vomiting and no other focal deficits. The pain does not get worse with eating/chewing, and no visual disturbances. He has been taking aspirin and Motrin for his headache without much relief. He states he has taken about 24 or more aspirin in the past 24 hours, and about 6-8 Motrin. He has history of cluster headaches but never in this area of his head. The patient is also sleep deprived as he also reports due to his headache and his RLS he has not had a good night's sleep within the past 24 hours. In the EMD the patient had routine labs done to include an ESR that resulted at 15. He also had a salicylate level done that was originally 18 and continued to i ncrease to 20.3 within 3 hours. On his ABG he was with a PH of 7.31/44/142/22. His RR has ranged from 20-32 with adequate spo2. Patient denies any other symptoms. He is accompanied by his daughter and reviewing with her, his rapid movement of his legs is how he has been since she was little and this has also been preventing him from sleeping at night. Patient will be admitted to the ICU to continue to follow his acid/base balance and supportive care for his aspirin toxicity. Will follow his headache and add Tylenol and Toradol for pain control now. Patient has received his COVID vaccine and his COVID test at this time is: NEGATIVE Allergies Allergy/AdvReac Type Severity Reaction Status Date / Time No Known Allergies Allergy Verified 01/03/21 12:54 Home Medications Medication Instructions Recorded Confirmed Type pramipexole 0.5 mg tablet (Mirapex) 1.5 mg PO QPM tab 01/04/19 02/07/21 History candesartan 32 mg tablet 32 mg PO DAILY 01/13/19 02/07/21 History carvedilol 6.25 mg tablet (Coreg) 6.25 mg PO BID 01/13/19 01/03/21 History coenzyme Q10 400 mg capsule (Co 400 mg PO DAILY 01/13/19 01/03/21 History Q-10) ezetimibe 10 mg tablet 10 mg PO DAILY 01/13/19 01/03/21 History ferrous sulfate 325 mg (65 mg 325 mg PO DAILY tab 01/13/19 01/03/21 History iron) tablet (iron) hydralazine 100 mg tablet 100 mg PO TID tab 01/13/19 02/07/21 History hydrochlorothiazide 25 mg tablet 25 mg PO DAILY 01/13/19 01/03/21 History spironolactone 25 mg tablet 25 mg PO DAILY 01/13/19 02/07/21 History oxycodone-acetaminophen 5 mg-325 1 tab PO Q8H PRN #35 tab 01/29/20 01/03/21 Rx mg tablet (Percocet) chlorthalidone 25 mg tablet 25 mg PO DAILY 02/07/21 02/07/21 History fluticasone 500 mcg-salmeterol 50 1 inh INHALATION BID 02/07/21 02/07/21 History mcg/dose blistr powdr for inhalation (Advair Diskus) labetalol 200 mg tablet 200 mg PO BID 02/07/21 02/07/21 History Past Med/Surg History Medical History Cluster headache Degenerative disc disease Dyslipidemia Hypertension Lumbar stenosis with neurogenic claudication (01/15/14) Obstructive sleep apnea Surgical History History of cardiac cath History of coronary artery bypass graft History of laminectomy Social History Smoking Status: Current every day smoker Tobacco Type: Cigarettes Cigarettes Per Day: 4; Second Hand Exposure: No; Hx Alcohol Use: Yes Alcohol type: beer Hx Substance Use: No Preferred Language: Kiny[place] Hearing Ability: Normal Current Living Situation: Alone current occupation: Retired Feels Safe at Home: Yes Review of Systems Review of Systems: REVIEW OF SYSTEMS: Constitutional: No fever, sweats or chills Eyes: No diplopia, no worsening or blurred vision ENT: (+) headache, (+) ringing in the ears, normal hearing, no trouble swallowing Respiratory: No cough, sputum, dyspnea at rest or on exertion Cardiovascular: No chest pain, tightness or palpitations Abdomen: No pain, nausea, vomiting, diarrhea or constipation Musculoskeletal: (+) RLS, joint pain, calf pain, swelling Neurologic: No weakness, numbness/tingling, or balance problems Psychiatric: No anxiety or depression Skin: No rash or itch Physical Exam Physical Exam: PHYSICAL EXAM: General: awake, alert, no apparent distress Head: Normocephalic, atraumatic ENT: PERRL, EOMI, no pharyngeal exudate, mucous membranes moist Neuro: AAO x 3, speech clear and appropriate, strength intact bilaterally 5/5, sensation intact and equal all extremities and dermatomes, no pronator drift Chest: equal rise and fall of the chest, no accessory muscle use, no heaves or thrills, Clear to auscultation, on room air, Cardiac: Regular rate and rhythm, telemetry reviewed-NSR, skin warm dry, cap refill <3 seconds, peripheral pulses, +2 no JVD, no murmur, no edema GI: NABS x 4 quadrants, soft, nontender to palpation, no rebound, guarding or tenderness : Spontaneously voiding, no pain, no CVA tenderness, Extremities: Normal inspection, no peripheral edema or erythema, calfs nontender to palpation Psych: Normal mood and affect Skin: no rash or erythema Results & Data Results & Data ([facility]) Vital Signs (Past 12 Hours) Vital Signs Temp Pulse Pulse Resp BP Pulse Ox 02/07/21 16:09 86 20 98 02/07/21 16:00 88 12 96 02/07/21 15:50 82 18 98 02/07/21 15:40 85 27 H 98 02/07/21 15:30 83 20 92 02/07/21 15:20 83 19 96 02/07/21 15:10 97 02/07/21 15:03 97 02/07/21 14:13 99 02/07/21 14:06 99 02/07/21 13:09 72 32 H 93 02/07/21 13:00 63 24 180/87 H 93 02/07/21 12:31 36.6 C 72 24 188/96 H 98 Laboratory Results Abnormal lab results 02/07/21 02/07/21 02/07/21 Range/Units 13:37 13:37 13:37 RBC 4.51 L (4.7-6.1) M/uL RDW Std Deviation 51.5 H (36.4-46.3) fL RDW Coeff of Patrice 14.6 H (11.5-14.5) % MPV 11.8 H (7.4-10.4) fL Neut # (Auto) 6.90 H (1.4-6.5) K/uL ABG pH (7.35-7.45) ABG pO2 (80-95) mmHg ABG O2 Saturation (90-95) % POC Total CO2 (24-31) mmol/L POC BUN (7-18) mg/dl BUN 31 H (7-18) mg/dl BUN/Creatinine Ratio 31.9 H (10-20) Glucose 113 H (70-99) mg/dl POC Glucose (other) (70-99) mg/dl AST 14 L (15-37) U/L Salicylates (2.8-20) mg/dl Acetaminophen 5 L (10-30) ug/ml 02/07/21 02/07/21 02/07/21 Range/Units 13:45 14:30 16:00 RBC (4.7-6.1) M/uL RDW Std Deviation (36.4-46.3) fL RDW Coeff of Patrice (11.5-14.5) % MPV (7.4-10.4) fL Neut # (Auto) (1.4-6.5) K/uL ABG pH 7.31 L (7.35-7.45) ABG pO2 142 H (80-95) mmHg ABG O2 Saturation 98.8 H (90-95) % POC Total CO2 23 L (24-31) mmol/L POC BUN 30 H (7-18) mg/dl BUN (7-18) mg/dl BUN/Creatinine Ratio (10-20) Glucose (70-99) mg/dl POC Glucose (other) 113 H (70-99) mg/dl AST (15-37) U/L Salicylates 20.3 H (2.8-20) mg/dl Acetaminophen (10-30) ug/ml Diagnostic Findings Head CTA 02/07/21 13:09 CT head/brain wo con, CT angio neck with con, CT angio head w con CLINICAL HISTORY: 60 years-old Male with Headache. Acute severe headache TECHNIQUE: Multiple axial CT images of the head were obtained without contrast. CTA head and neck was also obtained following the intravenous ministration of 119 mL Optiray 320. 3-D coronal and sagittal MIPS were obtained from the axial data set and were submitted for review. All measurements were obtained according to NASCET criteria. A dose lowering technique was utilized adhering to the principles of ALARA. CT DOSE: 1411.64 mGy.cm COMPARISON: Head CT 01/29/2020 FINDINGS: CT HEAD: No acute intracranial hemorrhage, midline shift, intracranial mass, hydrocephalus, territorial ischemia or abnormal extra-axial collection. Low- lying cerebellar tonsils. Cerebral vascular calcifications. The calvarium is intact. Right greater than left mastoid effusions redemonstrated along with fluid within the right middle ear cavity. Mild mucosal thickening of the ethmoid air cells. Unremarkable soft tissues and orbits. CTA HEAD AND NECK: Prior median sternotomy. Three-vessel morphology of the thoracic aortic arch. Patent innominate and imaged proximal subclavian arteries. Atherosclerotic plaque of the left greater than right carotid bulbs results in less than 50% stenosis of the bilateral internal carotid arteries. Additional atherosclerotic plaque of the cavernous and supraclinoid segments without high-grade stenosis. The middle and anterior cerebral arteries appear patent with areas of multifocal luminal narrowing. Codominant and widely patent vertebral arteries. There is calcified plaque of the bilateral V4 segments without significant stenosis. The basilar and posterior cerebral arteries are patent. The cerebral venous sinuses are patent. There is no abnormal intracranial enhancement. The lung apices are clear. No pneumothorax. Unremarkable thyroid. Anterior plate and screw fusion with discectomy changes at C5-C7. Mild mucoperiosteal thickening of the ethmoid and maxillary sinuses. Right greater than left mastoid effusions. IMPRESSION: 1. No acute intracranial abnormality. 2. Atherosclerotic plaque of the left greater than right carotid bulbs results in less than 50% stenosis bilaterally. There is no aneurysm, dissection, high- grade stenosis or arterial occlusion identified. 3. Right greater than left mastoid effusions with fluid in the right middle ear cavity redemonstrated. ACT 112: Negative or not required by law. The above report was generated using voice recognition software. It may contain grammatical, syntax or spelling errors. Electronically signed by: Andrew Pascual M.D. 02/07/2021 2:23 PM Neck CTA 02/07/21 13:09 CT head/brain wo con, CT angio neck with con, CT angio head w con CLINICAL HISTORY: 60 years-old Male with Headache. Acute severe headache TECHNIQUE: Multiple axial CT images of the head were obtained without contrast. CTA head and neck was also obtained following the intravenous ministration of 119 mL Optiray 320. 3-D coronal and sagittal MIPS were obtained from the axial data set and were submitted for review. All measurements were obtained according to NASCET criteria. A dose lowering technique was utilized adhering to the principles of ALARA. CT DOSE: 1411.64 mGy.cm COMPARISON: Head CT 01/29/2020 FINDINGS: CT HEAD: No acute intracranial hemorrhage, midline shift, intracranial mass, hydrocephalus, territorial ischemia or abnormal extra-axial collection. Low- lying cerebellar tonsils. Cerebral vascular calcifications. The calvarium is intact. Right greater than left mastoid effusions redemonstrated along with fluid within the right middle ear cavity. Mild mucosal thickening of the ethmoid air cells. Unremarkable soft tissues and orbits. CTA HEAD AND NECK: Prior median sternotomy. Three-vessel morphology of the thoracic aortic arch. Patent innominate and imaged proximal subclavian arteries. Atherosclerotic plaque of the left greater than right carotid bulbs results in less than 50% stenosis of the bilateral internal carotid arteries. Additional atherosclerotic plaque of the cavernous and supraclinoid segments without high-grade stenosis. The middle and anterior cerebral arteries appear patent with areas of multifocal luminal narrowing. Codominant and widely patent vertebral arteries. There is calcified plaque of the bilateral V4 segments without significant stenosis. The basilar and posterior cerebral arteries are patent. The cerebral venous sinuses are patent. There is no abnormal intracranial enhancement. The lung apices are clear. No pneumothorax. Unremarkable thyroid. Anterior plate and screw fusion with discectomy changes at C5-C7. Mild mucoperiosteal thickening of the ethmoid and maxillary sinuses. Right greater than left mastoid effusions. IMPRESSION: 1. No acute intracranial abnormality. 2. Atherosclerotic plaque of the left greater than right carotid bulbs results in less than 50% stenosis bilaterally. There is no aneurysm, dissection, high- grade stenosis or arterial occlusion identified. 3. Right greater than left mastoid effusions with fluid in the right middle ear cavity redemonstrated. ACT 112: Negative or not required by law. The above report was generated using voice recognition software. It may contain grammatical, syntax or spelling errors. Electronically signed by: Andrew Pascual M.D. 02/07/2021 2:[address] 02/07/21 13:10 CT head/brain wo con, CT angio neck with con, CT angio head w con CLINICAL HISTORY: 60 years-old Male with Headache. Acute severe headache TECHNIQUE: Multiple axial CT images of the head were obtained without contrast. CTA head and neck was also obtained following the intravenous ministration of 119 mL Optiray 320. 3-D coronal and sagittal MIPS were obtained from the axial data set and were submitted for review. All measurements were obtained according to NASCET criteria. A dose lowering technique was utilized adhering to the principles of ALARA. CT DOSE: 1411.64 mGy.cm COMPARISON: Head CT 01/29/2020 FINDINGS: CT HEAD: No acute intracranial hemorrhage, midline shift, intracranial mass, hydrocephalus, territorial ischemia or abnormal extra-axial collection. Low- lying cerebellar tonsils. Cerebral vascular calcifications. The calvarium is intact. Right greater than left mastoid effusions redemonstrated along with fluid within the right middle ear cavity. Mild mucosal thickening of the ethmoid air cells. Unremarkable soft tissues and orbits. CTA HEAD AND NECK: Prior median sternotomy. Three-vessel morphology of the thoracic aortic arch. Patent innominate and imaged proximal subclavian arteries. Atherosclerotic plaque of the left greater than right carotid bulbs results in less than 50% stenosis of the bilateral internal carotid arteries. Additional atherosclerotic plaque of the cavernous and supraclinoid segments without high-grade stenosis. The middle and anterior cerebral arteries appear patent with areas of multifocal luminal narrowing. Codominant and widely patent vertebral arteries. There is calcified plaque of the bilateral V4 segments without significant stenosis. The basilar and posterior cerebral arteries are patent. The cerebral venous sinuses are patent. There is no abnormal intracranial enhancement. The lung apices are clear. No pneumothorax. Unremarkable thyroid. Anterior plate and screw fusion with discectomy changes at C5-C7. Mild mucoperiosteal thickening of the ethmoid and maxillary sinuses. Right greater than left mastoid effusions. IMPRESSION: 1. No acute intracranial abnormality. 2. Atherosclerotic plaque of the left greater than right carotid bulbs results in less than 50% stenosis bilaterally. There is no aneurysm, dissection, high- grade stenosis or arterial occlusion identified. 3. Right greater than left mastoid effusions with fluid in the right middle ear cavity redemonstrated. ACT 112: Negative or not required by law. The above report was generated using voice recognition software. It may contain grammatical, syntax or spelling errors. Electronically signed by: Andrew Pascual M.D. 02/07/2021 2:23 PM Chest X-Ray 02/07/21 15:56 XR chest 1V portable CLINICAL HISTORY: Shortness of breath. COMPARISON STUDY: Chest radiograph and chest CT January 29, 2020. FINDINGS: There are median sternotomy wires, mediastinal surgical clips and postoperative findings within the spine. Note is made of cardiomegaly, unchanged. There is no pneumothorax or pleural effusion. There is pulmonary vascular congestion without overt pulmonary edema. IMPRESSION: No significant change in appearance of the chest. Cardiomegaly with pulmonary vascular congestion. No overt pulmonary edema. ACT 112: Negative or not required by law. Electronically signed by: Krystian Tolbert M.D. 02/07/2021 4:34 PM Medications Administered Discontinued Medications Acetaminophen (Acetaminophen 1000 Mg/100 Ml Iv) 1,000 mg IV NOW STA Stop: 02/07/21 13:10 Last Admin: 02/07/21 13:30 Dose: 1,000 mg Documented by: [id number] Albuterol (Albut/Ipratrop 3mg/0.5mg Neb 3 Ml Vial) 3 ml NEB NOW STA Stop: 02/07/21 15:57 Last Admin: 02/07/21 16:08 Dose: 3 ml Documented by: [id number] Dexamethasone Sodium Phosphate (DexamethasonePf 10 Mg/Ml Vial) 10 mg IV NOW ONE Stop: 02/07/21 13:10 Last Admin: 02/07/21 13:30 Dose: 10 mg Documented by: [id number] Diphenhydramine HCl (Diphenhydramine 50 Mg/Ml Vial) 25 mg IV NOW STA Stop: 02/07/21 13:10 Last Admin: 02/07/21 13:28 Dose: 25 mg Documented by: [id number] Fentanyl Citrate (Fentanyl Citrate 100 Mcg/2 Ml Vial) 100 mcg IV NOW STA Stop: 02/07/21 13:10 Last Admin: 02/07/21 13:25 Dose: 100 mcg Documented by: [id number] Sodium Chloride (Nss 1000ml) 1,000 mls @ 999 mls/hr IV .Q1H1M CARLO Stop: 02/07/21 14:15 Last Infusion: 02/07/21 14:28 Dose: 0 mls/hr Documented by: [id number] Admin: 02/07/21 13:25 Dose: 999 mls/hr Documented by: [id number] Sodium Chloride (Nss 1000ml) 500 mls @ 999 mls/hr IV .Q31M ONE Stop: 02/07/21 16:01 Last Infusion: 02/07/21 16:22 Dose: 999 mls/hr Documented by: [id number] Admin: 02/07/21 15:37 Dose: 999 mls/hr Documented by: [id number] Ioversol (Optiray 320 125ml) 119 ml IV ONCE ONE Stop: 02/07/21 13:57 Last Admin: 02/07/21 13:57 Dose: 119 ml Documented by: [id number] Pramipexole Dihydrochloride (Pramipexole Dihydrochlo 0.5 Mg Tab) 0.5 mg PO NOW STA Stop: 02/07/21 15:30 Last Admin: 02/07/21 15:57 Dose: 0.5 mg Documented by: [id number] Prochlorperazine (Prochlorperazine 5 Mg/Ml 2 Ml Vial) 10 mg IV NOW STA Stop: 02/07/21 13:10 Last Admin: 02/07/21 13:27 Dose: 10 mg Documented by: [id number] Home Medications pramipexole 0.5 mg tablet (Mirapex) 1.5 mg PO QPM tab 01/04/19 [History Confirmed 02/07/21] candesartan 32 mg tablet 32 mg PO DAILY 01/13/19 [History Confirmed 02/07/21] carvedilol 6.25 mg tablet (Coreg) 6.25 mg PO BID 01/13/19 [History Confirmed 01/03/21] coenzyme Q10 400 mg capsule (Co Q-10) 400 mg PO DAILY 01/13/19 [History Confirmed 01/03/21] ezetimibe 10 mg tablet 10 mg PO DAILY 01/13/19 [History Confirmed 01/03/21] ferrous sulfate 325 mg (65 mg iron) tablet (iron) 325 mg PO DAILY tab 01/13/19 [History Confirmed 01/03/21] hydralazine 100 mg tablet 100 mg PO TID tab 01/13/19 [History Confirmed 02/07/21] hydrochlorothiazide 25 mg tablet 25 mg PO DAILY 01/13/19 [History Confirmed 01/03/21] spironolactone 25 mg tablet 25 mg PO DAILY 01/13/19 [History Confirmed 02/07/21] oxycodone-acetaminophen 5 mg-325 mg tablet (Percocet) 1 tab PO Q8H PRN #35 tab 01/29/20 [Rx Confirmed 01/03/21] chlorthalidone 25 mg tablet 25 mg PO DAILY 02/07/21 [History Confirmed 02/07/21] fluticasone 500 mcg-salmeterol 50 mcg/dose blistr powdr for inhalation (Advair Diskus) 1 inh INHALATION BID 02/07/21 [History Confirmed 02/07/21] labetalol 200 mg tablet 200 mg PO BID 02/07/21 [History Confirmed 02/07/21] ECG Additional Comments: Ordered- Pending on admission Code Status & VTE Plan Code Status CODE: FULL VTE: SCDS, Heparin 5000 units subq q12 VTE Prophylaxis Plan VTE Prophylaxis will be ordered: Yes Supervising Physician Co-Signing Physician Notes Patient was seen and examined independently I discussed the case with Cristino SEQUEIRA I reviewed pertinent past medical social family history and also the plan of care and agree with the plan of care. Patient presents with aspirin toxicity, poison control was contacted and recommends continue aspirin monitoring if level exceeds 30 to consider alkalinization of urine. Patient was taking excessive aspirin due to headache which is left temporal area. He does typically have headaches in the past in this area however this is slightly different. It would be consistent with temporal arteritis however he does not have any significant elevation of his inflammatory markers. Nor does he be any jaw claudication or vision changes. Patient is markedly hypertensive and is on many antihypertensive medications. He is markedly restless in the ER Examination reveals some point tenderness over his left temporal artery although no firmness or nodularity felt there is not exquisitely tender. Patient has a unusual affect being restless in the bed. His daughter says this is typical for him having difficulty sleeping typically wearing his BiPAP at night. Patient states in the past has had a improvement of headaches with lorazepam. Due to his aspirin toxicity patient will be in the intensive care unit overnight. Patient had imaging of his cranial circulation no evidence of arterial or venous abnormalities no evidence of stroke. Patient's had significant hypertension and takes many other hypertensive medications at home he likely may need more aggressive treatment of his blood pressure medication if his headache persists. Likewise with his restlessness concern for reducing his respiratory drive given his aspirin toxicity is paramount however he may need soft doses of sedation to improve his restlessness which will therefore also improve his hypertension Any exceptions will be noted below PG Care Time/CCT Total # of Minutes Spent Total Time Spent with Patient: Total time spent is greater than 50% in coordination of care (as documented) at patient's floor/unit and/or counseling patient: Coding Level of Care Code 55955 Initial Inpt Care Lvl 3 Diagnoses Accidental aspirin overdose T39.011A Encounter type: initial encounter Headache R51.9 Headache chronicity pattern: acute headache Headache type: unspecified Intractability: intractable Acidosis E87.2 Obstructive sleep apnea G47.33 Degenerative disc disease Hypertension I10 Dyslipidemia E78.5 Cluster headache G44.009 Restless leg syndrome G25.81 (1) Headache Headache chronicity pattern: acute headache Headache type: unspecified Intractability: intractable Qualified Code(s): R51.9 - Headache, unspecified (2) Accidental aspirin overdose Encounter type: initial encounter Qualified Code(s): T39.011A - Poisoning by aspirin, accidental (unintentional), initial encounter
[2021-02-07 18:08] LABS: Base Excess VBG -3.2 mEq/L; Oxygen Saturation VBG 85.4 %; pH VBG 7.33 (7.36-7.41)
[2021-02-07] MEDS ORDERED: POTASSIUM CHLORIDE CRTAB 20 MEQ TABCR PO STA (18:17)
[2021-02-07] MEDS: LACTATED RINGER'S 1,000 ML IV SCH (19:23)
[2021-02-07] MEDS ORDERED: ICU PROTOCOL FOR HYPERGLYCEMIA PRN (21:11)
[2021-02-07] MEDS ORDERED: KETOROLAC TROMETHAMINE 15 MG/ML VIAL IV ONE (21:11)
--- NOTE | 2021-02-07 21:17 | Critical Care Consultation ---
Date of Consultation February 07, 2021 Assessment & Plan (1) Admitted to intensive care unit: Reason Critically Ill: 60-year-old male with accidental aspirin overdose with metabolic acidosis with associated cluster headaches requiring close monitoring NEURO - * CAM ICU: Negative * Headache: * With apparent history of cluster headaches. * CTA/CT of the head/brain negative. * Initially with improved symptoms with migraine cocktail in the emergency department. * Loss of consciousness: * Patient had initial episode of loss of consciousness upon arrival in the ICU with change of position from seated to standing. He did this again with attempts at sitting at bedside and using the toilet. I was present for this and monitor was in place. His heart rate remained in sinus rhythm. He did not drop his oxygen saturations. Repeat blood pressures were normotensive. * When patient was more lucid afterwards, he reports that this has happened to him in the past with a history of cardiac tumor. I am uncertain as to the association of this as his vital signs remained normal throughout and t hat he did not apparently become hypoxic. Regardless, echocardiogram ordered. * Patient with apparent history of seizure disorder as well. Certainly, the patient could be experiencing transient seizure-like activity. His restlessness does not appear to be focal in nature and he remains communicative throughout. Regardless, with his complex neurological history and now with episode of syncope, I do appreciate neurology consultation for ongoing guidance/management. * EEG was ordered for possible seizure-like activity. CARDIAC/VASCULAR - * Hypertension, hyperlipidemia: * Continue home medications as tolerated. * Monitor on telemetry. RESPIRATORY - * Tachypnea: * Patient initially tachypneic on arrival in the emergency department. * [place] to be compensatory in the setting of accidental aspirin overdose. * Patient saturating well on room air at this point. GI/NUTRITION - * N.p.o. overnight * Prophylaxis: Famotidine RENAL/LYTES - * Accidental aspirin overdose: * Salicylate levels trending down. * No significant anion gap metabolic acidosis. * Seems to be correcting with IV fluids. * Will trend salicylate levels. * Bicarb drip if needed. * Patient not overly tachypneic or hypoxic or requiring anything other than his home BiPAP at this time. * Avoid intubation if at all possible. * No significant electrolyte derangements. * IVF: LR at 100 mL's per hour. - * Stanley in place - Strict I&Os. ENDO - * No diabetes or thyroid disease. * BSGs per unit protocol. ISS --> gtt per unit policy. HEME - * Stable H&H ID - * No concerns for cough patient at this time. LINES/IV ACCESS - * PIVs x2 * Stanley DVT PROPHYLAXIS - * SCDs I have personally spent 55 minutes of critical care time in the direct management of this patient. This is a life/limb threatening event. This includes time spent evaluating patient, direct bedside care, chart review, placing orders, interpretation of diagnostic studies, discussion with consultants, patient, and family members, as well as other required patient management activities. This time is exclusive of all separately billable procedures, and teaching time and separate from and in addition to any other critical care service time. Thank you for allowing us to participate in the care of this patient. Please refer to my attending physician's documentation for any further recommendations. (2) Accidental aspirin overdose: (3) Loss of consciousness: (4) Acidosis: (5) Acute dehydration: (6) Headache: (7) Obstructive sleep apnea: (8) Hypertension: (9) Dyslipidemia: (10) Cluster headache: (11) Restless leg syndrome: History of Present Illness Attending Physician: Harley Vazquez MD History of Present Illness Patient is a 60-year-old male with a significant past medical cardiac tumor status post removal, restless leg syndrome, parasomnia, cluster headaches, hypertension, hyperlipidemia, degenerative disc disease, RUBEN, and lumbar stenosis who presented to the emergency department with complaints of headache and shortness of breath. The patient apparently suffers from cluster headaches. Patient had been reportedly using large amounts of aspirin over the last 24 to 48 hours for his headache. He was treated appropriately for his symptoms headache in the emergency department and underwent extensive evaluation including CT and CTA of the head/brain which demonstrated no acute findings. Patient salicylate level was found to be elevated. Patient was started on IV fluids at the direction of poison control. Patient to be admitted to the ICU for close monitoring. Upon arriving in the ICU, the patient had an episode where he essentially slumped over when going from seated to standing position. Patient was unconscious, but moaning. Upon my arrival at bedside, the patient was placed in the bed. He then awoke and was able to answer questions appropriately. Patient has ongoing jerking motions. He reports that he has a history of restless leg syndrome and this is consistent with his history of that. He complains of pain to the LEFT-sided head. Otherwise, he denies complaints of chest pain, palpitations, shortness of breath, or abdominal discomfort. Allergies Allergy/AdvReac Type Severity Reaction Status Date / Time No Known Allergies Allergy Verified 01/03/21 12:54 Home Medications Medication Instructions Recorded Confirmed Type pramipexole 0.5 mg tablet (Mirapex) 1.5 mg PO QPM tab 01/04/19 02/07/21 History candesartan 32 mg tablet 32 mg PO DAILY 01/13/19 02/07/21 History carvedilol 6.25 mg tablet (Coreg) 6.25 mg PO BID 01/13/19 01/03/21 History coenzyme Q10 400 mg capsule (Co 400 mg PO DAILY 01/13/19 01/03/21 History Q-10) ezetimibe 10 mg tablet 10 mg PO DAILY 01/13/19 01/03/21 History ferrous sulfate 325 mg (65 mg 325 mg PO DAILY tab 01/13/19 01/03/21 History iron) tablet (iron) hydralazine 100 mg tablet 100 mg PO TID tab 01/13/19 02/07/21 History hydrochlorothiazide 25 mg tablet 25 mg PO DAILY 01/13/19 01/03/21 History spironolactone 25 mg tablet 25 mg PO DAILY 01/13/19 02/07/21 History oxycodone-acetaminophen 5 mg-325 1 tab PO Q8H PRN #35 tab 01/29/20 01/03/21 Rx mg tablet (Percocet) chlorthalidone 25 mg tablet 25 mg PO DAILY 02/07/21 02/07/21 History fluticasone 500 mcg-salmeterol 50 1 inh INHALATION BID 02/07/21 02/07/21 History mcg/dose blistr powdr for inhalation (Advair Diskus) labetalol 200 mg tablet 200 mg PO BID 02/07/21 02/07/21 History Patient History Medical History Cluster headache Degenerative disc disease Dyslipidemia Hypertension Lumbar stenosis with neurogenic claudication (01/15/14) Obstructive sleep apnea Surgical History History of cardiac cath History of coronary artery bypass graft History of laminectomy Social History Smoking Status: Unknown if ever smoked Tobacco Type: Cigarettes Cigarettes Per Day: 4; Second Hand Exposure: No; Hx Alcohol Use: Yes Alcohol type: beer Hx Substance Use: No Preferred Language: Chinese Hearing Ability: Normal Beliefs That Will Affect Care: None Current Living Situation: Alone current occupation: Retired Feels Safe at Home: Yes Safety Concerns: Feels Safe At This Time Assistive Devices: CPAP and Hearing Aid - Bilateral Physical Exam Physical Exam: VITAL SIGNS - Vital signs and nursing notes were reviewed. GENERAL - 60-year-old male appearing his stated age. Appears agitated with strange, jerky movements of the upper and lower extremities. SKIN - Without rashes. HEAD - NC/AT. EYES - PERRL with EOMI bilaterally. Sclera anicteric. EARS - No deformities of external structures noted on gross examination bilaterally. NOSE - Midline and without cyanosis. No epistaxis or purulent drainage noted. MOUTH/OROPHARYNX - Without perioral cyanosis. Buccal mucosa pink and dry. NECK - Neck with FROM. Supple to palpation. No nuchal rigidity. LUNGS - Chest wall symmetric without accessory muscle use, intercostals retractions, or central cyanosis. Normal vesicular breath sounds CTA B/L. No wheezes, rales, or rhonchi appreciated. CARDIAC - Midline chest incision well healed. RRR with S1/S2. No murmur, rubs, or gallops appreciated. ABDOMEN - Abdominal contour obese without pulsations or visible masses. BS normoactive all four quadrants. No tenderness, palpable masses, hepatosplenomegaly, or ascites noted. EXTREMITIES - No clubbing or peripheral cyanosis. No pretibial edema present. +3/5 radial and dorsalis pedis pulses palpated throughout. +5/5 strength noted in UE/LE bilaterally. NEUROLOGIC - Cranial nerves II through XII grossly intact. Sensory intact to light touch throughout. Patient with jerking movements of the upper and lower extremities bilaterally. PSYCH - A&Ox3. Patient is initially somnolent, but awakes and communicates everything appropriately. Results & Data Results & Data ([facility]) Vital Signs (Past 12 Hours) Vital Signs Temp Pulse Pulse Resp BP Pulse Ox 02/07/21 20:50 98 H 22 165/94 H 98 02/07/21 18:30 96 02/07/21 18:22 96 02/07/21 18:02 95 02/07/21 17:36 92 H 25 H 181/113 H 97 02/07/21 16:09 86 20 98 02/07/21 16:00 88 12 96 02/07/21 15:50 82 18 98 02/07/21 15:40 85 27 H 98 02/07/21 15:30 83 20 92 02/07/21 15:20 83 19 96 02/07/21 15:10 97 02/07/21 15:03 97 02/07/21 14:13 99 02/07/21 14:06 99 02/07/21 13:09 72 32 H 93 02/07/21 13:00 63 24 180/87 H 93 02/07/21 12:31 36.6 C 72 24 188/96 H 98 Coding Level of Care Code Critical Care 1st 30-74 mins Diagnoses Admitted to intensive care unit Z78.9 Accidental aspirin overdose T39.011A Encounter type: initial encounter Loss of consciousness R40.20 Acidosis E87.2 Acute dehydration E86.0 Headache R51.9 Headache chronicity pattern: acute headache Headache type: unspecified Intractability: intractable Obstructive sleep apnea G47.33 Hypertension I10 Dyslipidemia E78.5 Cluster headache G44.009 Restless leg syndrome G25.81 Time Spent (min) 55 (1) Accidental aspirin overdose Encounter type: initial encounter Qualified Code(s): T39.011A - Poisoning by aspirin, accidental (unintentional), initial encounter (2) Headache Headache chronicity pattern: acute headache Headache type: unspecified Intractability: intractable Qualified Code(s): R51.9 - Headache, unspecified
[2021-02-07 21:34] LABS: Basophils # (auto) 0.01 K/uL (0-0.2); Basophils % (auto) 0.1 %; Hemoglobin 14.3 g/dL (14.0-18.0); Immature Granulocytes # (auto) 0.03 K/uL (0.00-0.02); Immature Granulocytes % (auto) 0.3 %; Lymphocytes # (auto) 0.57 K/uL (1.2-3.4); Lymphocytes % (auto) 6.2 %; Mean Corpuscular Hemoglobin 31.8 pg (25-34); Mean Corpuscular Volume 93.5 fL (80-100); Mean Platelet Volume 11.6 fL (7.4-10.4); Monocytes # (auto) 0.07 K/uL (0.11-0.59); Monocytes % (auto) 0.8 %; Neutrophils # (auto) 8.54 K/uL (1.4-6.5); Neutrophils % (auto) 92.6 %; Platelet Count 176 K/uL (130-400); RDW Coefficient of Variation 14.7 % (11.5-14.5); RDW Standard Deviation 50.2 fL (36.4-46.3); Red Blood Count 4.49 M/uL (4.7-6.1); White Blood Count 9.22 K/uL (4.8-10.8)
[2021-02-07] MEDS: HEPARIN SOD 5,000 UNIT/0.5 ML VIAL SQ SCH (21:41)
[2021-02-07] MEDS: LABETALOL HCL 200 MG TAB PO SCH (21:47)
[2021-02-07] MEDS: hydrALAZINE TAB 50 MG TAB PO SCH (21:47)
[2021-02-07] MEDS: PRAMIPEXOLE DIHYDROCHLO 0.5 MG TAB PO SCH (21:48)
[2021-02-07 22:04] LABS: pH VBG 7.35 (7.36-7.41)
[2021-02-07 23:23] LABS: BUN Creatinine Ratio 22.7 (10-20); Calcium 8.8 mg/dl (8.5-10.1); Est GFR (African American) 86.8 ml/min; Est GFR (Non-African American) 74.8 ml/min; Magnesium 2.1 mg/dl (1.8-2.4); Potassium 4.1 mmol/L (3.5-5.1)
[2021-02-07 23:34] LABS: Phosphorus 2.3 mg/dl (2.5-4.9); Thyroid Stimulating Hormone 0.298 uIu/ml (0.300-4.500)
[2021-02-07 23:36] LABS: Amphetamines+Metham, Urine Neg (Neg); Barbiturates, Urine Neg (Neg); Benzodiazepine, Urine Neg (Neg); Cocaine, Urine Neg (Neg); MDMA (Ecstacy), Urine Neg (Neg); Methadone, Urine Neg (Neg); Opiate, Urine Pos (Neg); Phencyclidine, Urine Neg (Neg)
[2021-02-07 23:47] LABS: T4 Free Thyroxine 0.76 ng/dl (0.8-1.6)
[2021-02-08] MEDS ORDERED: ACETAMINOPHEN 1,000 MG/100 ML VIAL IV STA ×2 (01:11→23:41)
[2021-02-08 05:02] LABS: Hematocrit (blood only) 40.1 % (42-52); Hemoglobin 13.6 g/dL (14.0-18.0); Immature Granulocytes # (auto) 0.01 K/uL (0.00-0.02); Immature Granulocytes % (auto) 0.1 %; Lymphocytes # (auto) 0.81 K/uL (1.2-3.4); Lymphocytes % (auto) 7.8 %; Mean Corpuscular Hemoglobin 31.3 pg (25-34); Mean Corpuscular Hgb Conc 33.9 g/dL (32-36); Mean Corpuscular Volume 92.4 fL (80-100); Monocytes # (auto) 0.39 K/uL (0.11-0.59); Monocytes % (auto) 3.8 %; Neutrophils # (auto) 9.15 K/uL (1.4-6.5); Neutrophils % (auto) 88.3 %; Platelet Count 125 K/uL (130-400); RDW Coefficient of Variation 14.7 % (11.5-14.5); RDW Standard Deviation 50.3 fL (36.4-46.3); Red Blood Count 4.34 M/uL (4.7-6.1); White Blood Count 10.36 K/uL (4.8-10.8)
[2021-02-08 05:03] LABS: Base Excess VBG -2.2 mEq/L; pH VBG 7.39 (7.36-7.41)
[2021-02-08 05:23] LABS: BUN Creatinine Ratio 24.6 (10-20); Calcium 8.7 mg/dl (8.5-10.1); Creatinine Clr Calc Pharmacy 111.9 ml/min; Est GFR (African American) 104.3 ml/min; Magnesium 1.8 mg/dl (1.8-2.4); Phosphorus 2.7 mg/dl (2.5-4.9); Potassium 3.7 mmol/L (3.5-5.1)
[2021-02-08] MEDS: LACTATED RINGER'S 1,000 ML IV SCH ×2 (05:25→18:51)
--- NOTE | 2021-02-08 07:08 | Critical Care Progress Note ---
Date of Service February 08, 2021 Assessment & Plan Admission and Anticipated Discharge Date Admission Date: February 07, 2021 Results & Data Results & Data ([facility]) Vital Signs (Past 12 Hours) Vital Signs Temp Pulse Pulse Resp BP BP Pulse Ox 02/08/21 06:25 65 12 122/48 L 96 02/08/21 05:25 71 15 136/70 94 02/08/21 04:25 78 18 128/75 99 02/08/21 04:00 36.5 C 02/08/21 03:25 83 16 148/76 H 95 02/08/21 02:25 80 17 133/77 95 02/08/21 01:11 84 20 116/84 97 02/08/21 00:55 83 14 120/75 93 02/08/21 00:40 79 16 147/64 H 93 02/08/21 00:25 79 13 138/71 94 02/08/21 00:10 85 13 131/75 94 02/08/21 00:00 36.6 C 84 02/07/21 23:55 84 17 110/58 L 95 02/07/21 23:40 80 16 138/86 95 02/07/21 23:25 89 19 132/82 91 02/07/21 23:10 79 16 145/80 H 94 02/07/21 22:55 82 19 132/83 94 02/07/21 22:40 79 16 133/74 94 02/07/21 22:25 91 H 21 154/90 H 97 02/07/21 22:10 96 H 20 169/118 H 94 02/07/21 21:55 94 H 17 165/74 H 96 02/07/21 21:40 97 H 18 137/92 96 02/07/21 21:30 36.3 C L 98 H 20 151/98 H 93 02/07/21 21:25 97 H 21 140/87 97 02/07/21 21:11 97 H 02/07/21 21:10 100 H 21 165/99 H 98 02/07/21 20:50 98 H 22 165/94 H 98
[2021-02-08] MEDS ORDERED: PRAMIPEXOLE DIHYDROCHLO 0.25 MG TAB PO STA (08:20)
[2021-02-08] MEDS: CHLORTHALIDONE 25 MG TAB PO SCH (09:03)
[2021-02-08] MEDS: LABETALOL HCL 200 MG TAB PO SCH ×2 (09:03→20:50)
[2021-02-08] MEDS: hydrALAZINE TAB 50 MG TAB PO SCH ×3 (09:03→20:50)
[2021-02-08] MEDS: FLUTICASONE/VILANTEROL 200/25MCG 14 PUFFS/INHALER INH SCH (09:03)
[2021-02-08] MEDS: HEPARIN SOD 5,000 UNIT/0.5 ML VIAL SQ SCH ×2 (09:04→20:51)
--- NOTE | 2021-02-08 09:58 | Critical Care Progress Note ---
Date of Service February 08, 2021 Assessment & Plan (1) Accidental aspirin overdose: Plan: 60yo male presents with accidental aspirin overdose. Currently stable and no longer requiring intensive care. NEURO - CAM ICU: Negative Headache: With apparent history of cluster headaches. CTA/CT of the head/brain negative. Initially with improved symptoms with migraine cocktail in the emergency department. Loss of consciousness: Patient had initial episode of loss of consciousness upon arrival in the ICU with change of position from seated to standing. When patient was more lucid afterwards, he reports that this has happened to him in the past with a history of cardiac tumor. Echo ordered. Patient with apparent history of seizure disorder as well. Certainly, the patient could be experiencing transient seizure-like activity. His restlessness does not appear to be focal in nature and he remains communicative throughout. Neurology consulted. EEG was ordered for possible seizure-like activity. CARDIAC/VASCULAR - Hypertension, hyperlipidemia: continue home medications as tolerated. Echo ordered as above RESPIRATORY - Tachypnea: Patient initially tachypneic on arrival in the emergency department. [place] to be compensatory in the setting of accidental aspirin overdose. Patient saturating well on room air at this point. GI/NUTRITION - NPO overnight Prophylaxis: Famotidine RENAL/LYTES - Accidental aspirin overdose: Salicylate levels trending down. No significant anion gap metabolic acidosis. Seems to be correcting with IV fluids. Patient not overly tachypneic or hypoxic or requiring anything other than his home BiPAP at this time. No significant electrolyte derangements. IVF: LR at 100 mL's per hour. - Stanley in place - Strict I&Os. ENDO - No diabetes or thyroid disease. BSGs per unit protocol. ISS --> gtt per unit policy. HEME - Stable H&H ID - No concerns for cough patient at this time. LINES/IV ACCESS - PIVs x2 Stanley DVT PROPHYLAXIS - SCDs Thank you for allowing us to participate in the care of this patient. Please refer to my attending physician's documentation for any further recommendations. Admission and Anticipated Discharge Date Admission Date: February 07, 2021 Supervising Physician Co-Signing Physician Notes Dr. Ashby was resident physician during care of patient. I separately evaluated patient for [place] portions of the history and the exam. I was present during the critical portion of medical decision making, and I discussed the case with the resident. I generally agree with the findings and plan. Aspirin level has started to normalize poison control no longer following EEG pending. Syncopal episodes yesterday echo is pending at this time. Stable for downgrade out of ICU to medical telemetry status. Subjective Patient seen and evaluated at bedside this morning. Currently feels well and is without complaint. Patient denies CP, SOB, abdominal pain, nausea, vomiting, lightheadedness, dizziness, and diarrhea. Review of Systems Review of Systems: See HPI Physical Exam Physical Exam: Constitutional: restless though in no acute distress HEENT: NCAT, no conjunctival injection CV: regular rhythm, no murmur appreciated, extremities well-perfused, no LE edema Resp: CTABL, no wheezes/rales/rhonchi appreciated, no increased work of breathing Neuro: no focal neurological deficits appreciated Results & Data Results & Data ([facility]) Vital Signs (Past 12 Hours) Vital Signs Temp Pulse Resp BP Pulse Ox 02/08/21 09:25 62 19 149/84 H 95 02/08/21 08:58 61 14 138/88 96 02/08/21 08:25 60 20 137/73 97 02/08/21 07:25 66 12 133/77 94 02/08/21 06:25 65 12 122/48 L 96 02/08/21 05:25 71 15 136/70 94 02/08/21 04:25 78 18 128/75 99 02/08/21 04:00 36.5 C 02/08/21 03:25 83 16 148/76 H 95 02/08/21 02:25 80 17 133/77 95 02/08/21 01:11 84 20 116/84 97 02/08/21 00:55 83 14 120/75 93 02/08/21 00:40 79 16 147/64 H 93 02/08/21 00:25 79 13 138/71 94 02/08/21 00:10 85 13 131/75 94 02/08/21 00:00 36.6 C 84 02/07/21 23:55 84 17 110/58 L 95 02/07/21 23:40 80 16 138/86 95 02/07/21 23:25 89 19 132/82 91 02/07/21 23:10 79 16 145/80 H 94 02/07/21 22:55 82 19 132/83 94 02/07/21 22:40 79 16 133/74 94 02/07/21 22:25 91 H 21 154/90 H 97 02/07/21 22:10 96 H 20 169/118 H 94 Resident Activity Tracking Resident Involvement: Resident Care Provided Care Provided: Adult Hospital Medicine (1) Accidental aspirin overdose Encounter type: initial encounter Qualified Code(s): T39.011A - Poisoning by aspirin, accidental (unintentional), initial encounter
--- NOTE | 2021-02-08 10:01 | Billing Data ---
Date of Service February 08, 2021 Coding Level of Care Code 58317 Subseq Hosp Care Lvl 3
--- NOTE | 2021-02-08 10:23 | XCELERA ---
[id number] [id number]
--- NOTE | 2021-02-08 10:35 | Electroencephalogram ---
EEG Procedure Note Date of Service February 08, 2021 Start / End Times Start Time: 936 End Time: 956 Referring Physician Angel Yost History 60-year-old with history of syncope and seizure-like activity Home Medication List Medication Instructions Recorded Confirmed Type pramipexole 0.5 mg tablet (Mirapex) 1.5 mg PO QPM tab 01/04/19 02/07/21 History candesartan 32 mg tablet 32 mg PO DAILY 01/13/19 02/07/21 History carvedilol 6.25 mg tablet (Coreg) 6.25 mg PO BID 01/13/19 01/03/21 History coenzyme Q10 400 mg capsule (Co 400 mg PO DAILY 01/13/19 01/03/21 History Q-10) ezetimibe 10 mg tablet 10 mg PO DAILY 01/13/19 01/03/21 History ferrous sulfate 325 mg (65 mg 325 mg PO DAILY tab 01/13/19 01/03/21 History iron) tablet (iron) hydralazine 100 mg tablet 100 mg PO TID tab 01/13/19 02/07/21 History hydrochlorothiazide 25 mg tablet 25 mg PO DAILY 01/13/19 01/03/21 History spironolactone 25 mg tablet 25 mg PO DAILY 01/13/19 02/07/21 History oxycodone-acetaminophen 5 mg-325 1 tab PO Q8H PRN #35 tab 01/29/20 01/03/21 Rx mg tablet (Percocet) chlorthalidone 25 mg tablet 25 mg PO DAILY 02/07/21 02/07/21 History fluticasone 500 mcg-salmeterol 50 1 inh INHALATION BID 02/07/21 02/07/21 History mcg/dose blistr powdr for inhalation (Advair Diskus) labetalol 200 mg tablet 200 mg PO BID 02/07/21 02/07/21 History Inpatient Medication List Chlorthalidone (Chlorthalidone 25 Mg Tab) 25 mg PO DAILY CARLO Stop: 03/10/21 08:59 Last Admin: 02/08/21 09:03 Dose: 25 mg Documented by: [id number] Fluticasone/Vilanterol (Fluticasone/Vilanterol 200/25mcg 14 Puffs/Inhaler) 1 puffs INH DAILY CARLO Stop: 03/10/21 08:59 Last Admin: 02/08/21 09:03 Dose: 1 puffs Documented by: [id number] Heparin Sodium (Porcine) (Heparin Sod 5,000 Unit/0.5 Ml Vial) 5,000 units SQ Q12 CARLO Stop: 03/09/21 21:10 Last Admin: 02/08/21 09:04 Dose: 5,000 units Documented by: [id number] Admin: 02/07/21 21:41 Dose: 5,000 units Documented by: [id number] Hydralazine HCl (Hydralazine Tab 50 Mg Tab) 100 mg PO TID CARLO Stop: 03/09/21 21:10 Last Admin: 02/08/21 09:03 Dose: 100 mg Documented by: [id number] Admin: 02/07/21 21:47 Dose: 100 mg Documented by: [id number] Lactated Ringer's (Lr) 1,000 mls @ 80 mls/hr IV .[id number] CARLO Stop: 03/09/21 18:19 Last Admin: 02/08/21 05:25 Dose: 80 mls/hr Documented by: [id number] Infusion: 02/08/21 05:25 Dose: 80 mls/hr Documented by: [id number] Infusion: 02/07/21 21:40 Dose: 80 mls/hr Documented by: [id number] Admin: 02/07/21 19:23 Dose: 125 mls/hr Documented by: [id number] Labetalol HCl (Labetalol Hcl 200 Mg Tab) 200 mg PO BID CARLO Stop: 03/09/21 21:10 Last Admin: 02/08/21 09:03 Dose: 200 mg Documented by: [id number] Admin: 02/07/21 21:47 Dose: 200 mg Documented by: [id number] Miscellaneous (Candesartan - Order Awaiting Action) 1 ea N/A QS CARLO Stop: 03/10/21 00:00 Last Admin: 02/08/21 09:37 Dose: Not Given Documented by: [id number] Admin: 02/07/21 23:01 Dose: Not Given Documented by: [id number] Pramipexole Dihydrochloride (Pramipexole Dihydrochlo 0.5 Mg Tab) 1.5 mg PO QPM CARLO Stop: 03/09/21 21:10 Last Admin: 02/07/21 21:48 Dose: 1.5 mg Documented by: [id number] Discontinued Medications Acetaminophen (Acetaminophen 1000 Mg/100 Ml Iv) 1,000 mg IV NOW STA Stop: 02/07/21 13:10 Last Admin: 02/07/21 13:30 Dose: 1,000 mg Documented by: [id number] Albuterol (Albut/Ipratrop 3mg/0.5mg Neb 3 Ml Vial) 3 ml NEB NOW STA Stop: 02/07/21 15:57 Last Admin: 02/07/21 16:08 Dose: 3 ml Documented by: [id number] Dexamethasone Sodium Phosphate (DexamethasonePf 10 Mg/Ml Vial) 10 mg IV NOW ONE Stop: 02/07/21 13:10 Last Admin: 02/07/21 13:30 Dose: 10 mg Documented by: [id number] Diphenhydramine HCl (Diphenhydramine 50 Mg/Ml Vial) 25 mg IV NOW STA Stop: 02/07/21 13:10 Last Admin: 02/07/21 13:28 Dose: 25 mg Documented by: [id number] Fentanyl Citrate (Fentanyl Citrate 100 Mcg/2 Ml Vial) 100 mcg IV NOW STA Stop: 02/07/21 13:10 Last Admin: 02/07/21 13:25 Dose: 100 mcg Documented by: [id number] Sodium Chloride (Nss 1000ml) 1,000 mls @ 999 mls/hr IV .Q1H1M CARLO Stop: 02/07/21 14:15 Last Infusion: 02/07/21 14:28 Dose: 0 mls/hr Documented by: [id number] Admin: 02/07/21 13:25 Dose: 999 mls/hr Documented by: [id number] Sodium Chloride (Nss 1000ml) 500 mls @ 999 mls/hr IV .Q31M ONE Stop: 02/07/21 16:01 Last Infusion: 02/07/21 16:22 Dose: 999 mls/hr Documented by: [id number] Admin: 02/07/21 15:37 Dose: 999 mls/hr Documented by: [id number] Acetaminophen (Ofirmev) 1,000 mg in 100 mls @ 400 mls/hr IV NOW STA Stop: 02/08/21 01:25 Last Infusion: 02/08/21 01:59 Dose: 0 mls/hr Documented by: [id number] Admin: 02/08/21 01:44 Dose: 400 mls/hr Documented by: [id number] Ioversol (Optiray 320 125ml) 119 ml IV ONCE ONE Stop: 02/07/21 13:57 Last Admin: 02/07/21 13:57 Dose: 119 ml Documented by: [id number] Ketorolac Tromethamine (Ketorolac Tromethamine 15 Mg/Ml Vial) 15 mg IV NOW ONE Stop: 02/07/21 21:12 Last Admin: 02/07/21 23:00 Dose: Not Given Documented by: [id number] Potassium Chloride (Potassium Chloride Crtab 20 Meq Tabcr) 40 meq PO NOW STA Stop: 02/07/21 18:18 Last Admin: 02/07/21 19:23 Dose: 40 meq Documented by: [id number] Pramipexole Dihydrochloride (Pramipexole Dihydrochlo 0.5 Mg Tab) 0.5 mg PO NOW STA Stop: 02/07/21 15:30 Last Admin: 02/07/21 15:57 Dose: 0.5 mg Documented by: [id number] Pramipexole Dihydrochloride (Pramipexole Dihydrochlo 0.25 Mg Tab) 1.5 mg PO NOW STA Stop: 02/08/21 08:21 Last Admin: 02/08/21 09:03 Dose: 1.5 mg Documented by: [id number] Prochlorperazine (Prochlorperazine 5 Mg/Ml 2 Ml Vial) 10 mg IV NOW STA Stop: 02/07/21 13:10 Last Admin: 02/07/21 13:27 Dose: 10 mg Documented by: [id number] Description This is a 21 electrode EEG with a single channel dedicated to limited EKG. The electrodes were placed in accordance with the International 10-20 system. Interpretation The predominant background activity consists of a very well modulated 10-11 Hz activity, of up to 40 mV in amplitude,seen symmetrically distributed over the posterior head regions bilaterally. This activity attenuates nicely with eye- opening and other alerting procedures. Photic stimulation was performed and elicited no change in the background activity and no abnormal responses were seen. Hyperventilation was not performed. A mild to moderate amount of muscle and movement artifact activity contaminated the recording, yet did not hinder interpretation to any significant degree. Throughout the waking portion of the recording, no focal abnormalities, abnormal slow activity, or potentially epileptogenic discharges are seen. The patient entered the drowsy state with no further activation. In summary, this EEG was normal during wakefulness and drowsiness. No focal abnormalities, potentially epileptogenic discharges, or abnormal slow activity was seen. Clinical Correlation The abscence of potentially epileptogenic activity does not exclude a seizure di sorder, since interictally, EEGs can be normal. Clinical correlation is required. [facility] EEG Procedure Codes Indication for Procedure (1) Loss of consciousness: (2) Seizure-like activity: Neurology Neurology: 17721 EEG include record awake & drowsy
[2021-02-08] MEDS ORDERED: SUMAtriptan succinate 6 MG/0.5 ML VIAL SQ STA (10:49)
[2021-02-08] MEDS ORDERED: ACETAMINOPHEN 500 MG TAB PO ONE (10:54)
[2021-02-08] MEDS ORDERED: ACETAMINOPHEN 500 MG TAB ONE (10:56)
--- NOTE | 2021-02-08 10:56 | Neurology Consultation ---
Date of Consultation February 08, 2021 Assessment & Plan (1) Seizure-like activity: (2) Orthostatic syncope: (3) Restless leg syndrome: (4) Cluster headache: (5) Hypertension: patient had 2 episodes yesterday in the evening consistent with orthostasis. In 1 episode he had some seizure-like activity which was secondary to the drop in pressure. Patient has some relatively mild aspirin toxicity which seems to be improving. Currently he has no focal neurologic deficits or evidence of seizure activity. EEG was obtained this morning and was nonfocal and had no potentially epileptogenic activity. He has a history of severe chronic restless leg syndrome pramipexole. He has significant cluster headaches recently after several years being fairly headache free. He does have a history of hypertension which could trigger these. Recommendations: 1. MRI of the brain with without contrast. 2. sumatriptan 6 milligram subcutaneous daily as needed for migraine headache. Avoid aspirin for treating his headaches. 3. consider additional treatments both as treatment and prevention for his cluster migraines, but this is best done as an outpatient. 4. Consider alternatives for restless leg syndrome. Pramipexole can be increased to a total of 4.5 milligrams per day which may help his restless leg syndrome symptoms. However, this medication has orthostatics side effects as well as the potential for confusion /hallucinations and dyskinesias. Therefore as an outpatient, I will consider alternatives. 5. I will follow in the hospital but he will follow up with Dr. Dumont as an outpatient Overall, I spent a total of 75 minutes with this case including review of oswaldo rds, review of CT films, direct evaluation the patient bedside, and discussion of the case with the patient at bedside, RN at bedside, and Dr. Tate, including differential diagnosis and treatment options. History of Present Illness Reason for Consultation: patient is a 60-year-old, who I was asked to see at the request of abby Lucas, for neurologic consultation regarding syncope and seizure-like activity. Requesting Physician: Angel Blanc p.a.-c Attending Physician: Quinn Tate History of Present Illness patient has a history of restless leg syndrome for many years. In the past he saw Dr. Dumont starting in 2013. over the next 4 years he was treated for restless legs syndrome, parasomnias, and cluster migraine headache. His restless leg syndrome has been treated with ropinirole and clonazepam in the past. Currently he is on pramipexole 0.5 milligram tablets, 3 or 4 times a day. He is on CPAP for obstructive sleep apnea and has trouble maintaining sleep. He was getting migraine headaches that had a strong cluster component starting 4-5 years ago. They were left-sided accompanied by flushing and tearing on the left side of the head. He tends to take aspirin for these. 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 Following this surgery his cluster headaches resolved. He. Seeing Dr. Dumont in 2018. Over the last 3 weeks he started getting left-sided cluster headaches again on an intermittent basis much like before. They would come on and last waxing and waning for 2-3 days and then be off for 2-3 days. Aspirin sometimes helped. Decreased sleep and increased blood pressure could trigger these headaches. It o'clock in the morning on February 07 he had the onset of a typical headache. He took 845 milligram aspirin preparation for tablets at 0820, two more at 0900, two more at 1000, and 1 more at 1020. he was noticed to be very short of breath and arrived to the emergency room June 09 at 1231. Blood pressure is 188/96 with a respiratory rate of 24, pulse of 72, temperature 36.0, O2 saturation 98 percent. He had no focal neurologic deficits. CT angiography of the head and neck showed less than 50 percent stenosis in the carotid bulbs bilaterally. CT scan of the head was unremarkable and there were no other anomalies. A CT scan of the cervi layla spine was. CBC and Chem profile were unremarkable except for glucose of 124. TSH was 0.298, Lyme antibody titers were negative and since it was 12. Urinalysis was negative. Sinemet a fan level was 5 ( normal 10-20). salicylate level was as much as 20.3 on admission. At 2124, he was in a wheelchair coming back from a test and stood up to get in bed having a syncopal episode. He lay down in bed and immediately woke up. At 2239, he was lying in bed and insisted on sitting up to urinate. He had the onset of shaking of the limbs in general and some nystagmus followed by syncope. He was put back in bed awoke with normal mental status. The patient has some tinnitus and decreased hearing but no vertigo, weakness, or numbness. He is not confused currently. Blood pressure currently is 149/84 Allergies Allergy/AdvReac Type Severity Reaction Status Date / Time No Known Allergies Allergy Verified 01/03/21 12:54 Home Medications Medication Instructions Recorded Confirmed Type pramipexole 0.5 mg tablet (Mirapex) 1.5 mg PO QPM tab 01/04/19 02/07/21 History candesartan 32 mg tablet 32 mg PO DAILY 01/13/19 02/07/21 History carvedilol 6.25 mg tablet (Coreg) 6.25 mg PO BID 01/13/19 01/03/21 History coenzyme Q10 400 mg capsule (Co 400 mg PO DAILY 01/13/19 01/03/21 History Q-10) ezetimibe 10 mg tablet 10 mg PO DAILY 01/13/19 01/03/21 History ferrous sulfate 325 mg (65 mg 325 mg PO DAILY tab 01/13/19 01/03/21 History iron) tablet (iron) hydralazine 100 mg tablet 100 mg PO TID tab 01/13/19 02/07/21 History hydrochlorothiazide 25 mg tablet 25 mg PO DAILY 01/13/19 01/03/21 History spironolactone 25 mg tablet 25 mg PO DAILY 01/13/19 02/07/21 History oxycodone-acetaminophen 5 mg-325 1 tab PO Q8H PRN #35 tab 01/29/20 01/03/21 Rx mg tablet (Percocet) chlorthalidone 25 mg tablet 25 mg PO DAILY 02/07/21 02/07/21 History fluticasone 500 mcg-salmeterol 50 1 inh INHALATION BID 02/07/21 02/07/21 History mcg/dose blistr powdr for inhalation (Advair Diskus) labetalol 200 mg tablet 200 mg PO BID 02/07/21 02/07/21 History Patient History Medical History Cluster headache Degenerative disc disease Dyslipidemia Hypertension Lumbar stenosis with neurogenic claudication (01/15/14) Obstructive sleep apnea Surgical History History of cardiac cath History of coronary artery bypass graft History of laminectomy Family History (Updated 02/08/21 @ 11:14 by Apollo Dubon MD) Father , age 42 of an [place] Myocardial infarction Mother , age 92 with heart disease Heart disease Social History Smoking Status: Unknown if ever smoked Tobacco Type: Cigarettes Cigarettes Per Day: 4; Second Hand Exposure: No; Hx Alcohol Use: Yes Alcohol type: beer Hx Substance Use: No Preferred Language: Guyanese Hearing Ability: Normal Beliefs That Will Affect Care: None Current Living Situation: Alone current occupation: Retired Feels Safe at Home: Yes Safety Concerns: Feels Safe At This Time Assistive Devices: CPAP and Hearing Aid - Bilateral Review of Systems Constitutional: + fatigue; no fever and no weakness Eyes: no diplopia, no eye pain and no worsening vision Ear, Nose, Mouth, Throat: + tinnitus and + hearing loss; no ear pain, no dizziness, no snoring, no hoarseness and no dysphagia Respiratory: no cough and no dyspnea Cardiovascular: no chest pain, no palpitations and no lightheadedness Gastrointestinal: no abdominal pain, no nausea and no vomiting Musculoskeletal: + back pain; no neck pain, no radicular pain, no joint pain and no myalgia Integumentary: no rash and no lesions Neurologic: + headache(s); no gait abnormality, no localized weakness, no generalized weakness, no tingling, no numbness, no tremor(s), no abnormal movements, no abnormal speech, no confusion and no memory loss Psychiatric: no depression, no irritability, no anxiety, no difficulty conc entrating, no confusion and no hallucinations Endocrine: no fatigue and no flushing Hematologic / Lymphatic: no easy bleeding and no easy bruising Allergy / Immunological: no urticaria and no problem reported Exam (Neuro) Physical Exam: The patient is right-handed. The patient is awake, alert, and attentive. Speech is normal without any aphasia or dysarthria. The patient can name objects, repeat phrases, and has normal s pontaneous speech. Mentation and thought processes are intact, with orientation to person, place and time, and normal fund of knowledge. Attention and concentration are normal. Mood and affect are normal and appropriate. General appearance and grooming are normal. Short and long-term memory are intact. The discs are sharp with positive venous pulsations bilaterally. There are no exudates, hemorrhages, or blood vessel changes seen. Pupils are 4 mm bilaterally and reactive to light. Extraocular eye muscles are intact without nystagmus. Visual acuity and visual wilson seem normal grossly to confrontation. There are no deficits to sensation in the face in all 3 distributions of the fifth cranial nerve bilaterally. Corneal reflexes are positive bilaterally. Facial strength and symmetry was normal bilaterally. Hearing seems normal bilaterally. Palate moves well without asymmetry. There is normal sternocleidomastoid and trapezius (shoulder shrug) strength bilaterally. Tongue is midline with good strength bilaterally. Neck has a full range of motion without discomfort. There are no cervical bruits bilaterally. There are no cranial or ocular bruits. Heart is without murmur. There is a regular rhythm and rate. Cervical, thoracic, and lumbar spine are nontender to palpation. Gait was not tested. With outstretched arms there is no drift. There are no resting, postural, or action tremors. There is no ataxia with finger to nose testing. There is good facility in the hands. No other abnormal involuntary movements are noted. Motor strength is 5/5 diffusely in the arms bilaterally including deltoids, biceps, triceps, brachioradialis, wrist flexors and extensors, meteorological equipment repairer, and intrinsic hand muscles. Motor strength is 5/5 diffusely in the legs bilaterally including hip flexors, quadriceps, hamstrings, gastrocnemius, tibialis anterior, tibialis posterior, and Peroneii muscles. Toe extensors are normal and there is good bulk in the extensor digitorum brevis muscles bilaterally. The limbs have good tone without rigidity or spasticity. There is no atrophy noted in the muscles. Muscle bulk is normal, there is no tenderness to palpation, no myotonia to percussion, and no fasciculations seen. Sensory examination is intact to touch and pin throughout all 4 limbs diffusely. Reflexes are 2/4 in the biceps, triceps, brachioradialis, quadriceps, and Achilles tendons bilaterally. There is no clonus bilaterally. Toes are downgoing with plantar stimulation bilaterally. Peripheral pulses are present and of normal quality distally in all 4 limbs. There is no peripheral edema noted in the limbs. Results & Data ([facility]) Vital Signs (Past 12 Hours) Vital Signs Temp Pulse Resp BP Pulse Ox 02/08/21 09:25 62 19 149/84 H 95 02/08/21 08:58 61 14 138/88 96 02/08/21 08:25 60 20 137/73 97 02/08/21 07:25 66 12 133/77 94 02/08/21 06:25 65 12 122/48 L 96 02/08/21 05:25 71 15 136/70 94 02/08/21 04:25 78 18 128/75 99 02/08/21 04:00 36.5 C 02/08/21 03:25 83 16 148/76 H 95 02/08/21 02:25 80 17 133/77 95 02/08/21 01:11 84 20 116/84 97 02/08/21 00:55 83 14 120/75 93 02/08/21 00:40 79 16 147/64 H 93 02/08/21 00:25 79 13 138/71 94 02/08/21 00:10 85 13 131/75 94 02/08/21 00:00 36.6 C 84 02/07/21 23:55 84 17 110/58 L 95 02/07/21 23:40 80 16 138/86 95 02/07/21 23:25 89 19 132/82 91 02/07/21 23:10 79 16 145/80 H 94 02/07/21 22:55 82 19 132/83 94 PG Care Time/CCT Total # of Minutes Spent Total Time Spent with Patient: Total time spent is greater than 50% in coordination of care (as documented) at patient's floor/unit and/or counseling patient: Coding Level of Care Code 47656 Office/Outpt Visit, New Diagnoses Seizure-like activity R56.9 Orthostatic syncope I95.1 Restless leg syndrome G25.81 Cluster headache G44.009 Hypertension I10 Time Spent (min) 75
[2021-02-08] MEDS: LOSARTAN POTASSIUM 50 MG TAB PO SCH (12:17)
[2021-02-08] MEDS: PANTOprazole 40 MG in SYRINGE 0 ML IV SCH (12:17)
[2021-02-08] MEDS ORDERED: SUMAtriptan succinate 6 MG/0.5 ML VIAL SQ ONE (15:05)
--- NOTE | 2021-02-08 15:54 | Electrocardiogram Report ---
Test Reason : Blood Pressure : / mmHG Vent. Rate : 057 BPM Atrial Rate : 057 BPM P-R Int : 162 ms QRS Dur : 096 ms QT Int : 452 ms P-R-T Axes : 021 031 -54 degrees QTc Int : 439 ms Sinus bradycardia Diffuse Nonspecific ST and T wave abnormality Abnormal ECG When compared with ECG of 29-JAN-2020 17:08, Premature ventricular complexes are no longer Present [place] interval has decreased Confirmed by Junior Borja ([id number]) on 02/08/2021 3:54:01 PM Referred By: REFERRED SELF Confirmed By:Junior Borja
[2021-02-08] MEDS: PRAMIPEXOLE DIHYDROCHLO 0.5 MG TAB PO SCH (20:50)
--- NOTE | 2021-02-08 21:20 | Hospitalist Progress Note ---
Date of Service February 08, 2021 Assessment & Plan (1) Accidental aspirin overdose: Plan: As per HPI taking for his headache- ~ 24 tabs/24 hours- last dose was around 10- 11 oclock today -resolved. -will transfer out of the ICU. (2) Headache: Plan: ? cluster headache- CTA of the head and neck negative, as well noting venous sinuses clear - Toradol and x1 now - received Tylenol and Fentanyl in the EMD - with ESR being low and lack of other assessments- will hold on steroids for now - If aspirin level decreases and PH remains stable consider adding in other agents as RR and PH dictate (3) Acidosis: Plan: Mild at this time- reach euvolemia - as above consider alkaline therapy for decreasing PH, HCo3, and increasing salicylate level - VBG recheck- 7 - Continue to follow closely q2-4 defer to ICU - EtCO2 monitoring ordered (4) Obstructive sleep apnea: Plan: CPAP of 12 at home - patient's daughter to bring in home machine (5) Degenerative disc disease: Plan: Stable no acute needs (6) Hypertension: Plan: Continue Labetalol, continue hydralazine, continue candesartan, continue chlorthalidone - Meds verified from most recent outpatient visit (7) Dyslipidemia: Plan: Continue zetia (8) Cluster headache: Plan: As above will obtain MR head will place on sumatriptan (9) Restless leg syndrome: Plan: Continue pramipexole Admission and Anticipated Discharge Date Admission Date: February 07, 2021 Subjective 60 yo male reports having a severe headache. Patient reports no new complaints. Review of Systems Review of Systems: All systems reviewed & are unremarkable except as noted in HPI & below Physical Exam Physical Exam: General: awake, alert, no apparent distress Head: Normocephalic, atraumatic ENT: PERRL, EOMI, no pharyngeal exudate, mucous membranes moist Neuro: AAO x 3, speech clear and appropriate, strength intact bilaterally 5/5, sensation intact and equal all extremities and dermatomes, no pronator drift Chest: equal rise and fall of the chest, no accessory muscle use, no heaves or thrills, Clear to auscultation, on room air, Cardiac: Regular rate and rhythm, telemetry reviewed-NSR, skin warm dry, cap refill <3 seconds, peripheral pulses, +2 no JVD, no murmur, no edema GI: NABS x 4 quadrants, soft, nontender to palpation, no rebound, guarding or tenderness : Spontaneously voiding, no pain, no CVA tenderness, Extremities: Normal inspection, no peripheral edema or erythema, calfs nontender to palpation Psych: Normal mood and affect Skin: no rash or erythema Results & Data Results & Data ([facility]) Vital Signs (Past 12 Hours) Vital Signs Temp Pulse Pulse Resp BP BP Pulse Ox 02/08/21 20:45 36.8 C 52 L 18 180/83 H 95 02/08/21 20:00 36.9 C 02/08/21 19:59 57 L 20 149/63 H 02/08/21 19:26 61 22 146/63 H 96 02/08/21 18:48 56 L 02/08/21 15:39 58 L 02/08/21 15:26 58 L 18 152/67 H 96 02/08/21 14:25 49 L 11 L 129/81 96 02/08/21 13:25 58 L 16 134/65 98 02/08/21 12:25 58 L 16 140/74 100 02/08/21 12:14 58 L 14 121/71 95 02/08/21 12:00 62 02/08/21 11:25 58 L 16 134/73 97 02/08/21 10:25 57 L 16 147/74 H 95 02/08/21 09:25 62 19 149/84 H 95 PG Care Time/CCT Total # of Minutes Spent Total Time Spent with Patient: Total time spent is greater than 50% in coordination of care (as documented) at patient's floor/unit and/or counseling patient: Coding Level of Care Code 08582 Subseq Hosp Care Lvl 2 Diagnoses Accidental aspirin overdose T39.011A Encounter type: initial encounter Headache R51.9 Headache chronicity pattern: acute headache Headache type: unspecified Intractability: intractable Acidosis E87.2 Obstructive sleep apnea G47.33 Degenerative disc disease Hypertension I10 Dyslipidemia E78.5 Cluster headache G44.009 Restless leg syndrome G25.81 Time Spent (min) 25 (1) Accidental aspirin overdose Encounter type: initial encounter Qualified Code(s): T39.011A - Poisoning by aspirin, accidental (unintentional), initial encounter (2) Headache Headache chronicity pattern: acute headache Headache type: unspecified Intractability: intractable Qualified Code(s): R51.9 - Headache, unspecified
[2021-02-08] MEDS ORDERED: KETOROLAC TROMETHAMINE 15 MG/ML VIAL IV ONE (22:22)
[2021-02-08] MEDS ORDERED: diphenhydrAMINE 50 MG/ML VIAL IV STA (23:41)
[2021-02-09 08:16] LABS: Basophils # (auto) 0.04 K/uL (0-0.2); Basophils % (auto) 0.6 %; Eosinophils % (auto) 1.4 %; Hematocrit (blood only) 40.5 % (42-52); Hemoglobin 13.3 g/dL (14.0-18.0); Immature Granulocytes # (auto) 0.03 K/uL (0.00-0.02); Immature Granulocytes % (auto) 0.4 %; Lymphocytes # (auto) 1.95 K/uL (1.2-3.4); Mean Corpuscular Hemoglobin 31.1 pg (25-34); Mean Corpuscular Hgb Conc 32.8 g/dL (32-36); Mean Corpuscular Volume 94.6 fL (80-100); Mean Platelet Volume 11.6 fL (7.4-10.4); Monocytes # (auto) 0.44 K/uL (0.11-0.59); Monocytes % (auto) 6.1 %; Neutrophils # (auto) 4.66 K/uL (1.4-6.5); Neutrophils % (auto) 64.5 %; Platelet Count 122 K/uL (130-400); RDW Coefficient of Variation 14.7 % (11.5-14.5); RDW Standard Deviation 50.6 fL (36.4-46.3); Red Blood Count 4.28 M/uL (4.7-6.1); White Blood Count 7.22 K/uL (4.8-10.8)
[2021-02-09] MEDS: LACTATED RINGER'S 1,000 ML IV SCH (08:30)
--- NOTE | 2021-02-09 08:32 | Neurology Progress Note ---
Date of Service February 09, 2021 Assessment & Plan (1) Seizure-like activity: (2) Orthostatic syncope: (3) Restless leg syndrome: (4) Cluster headache: (5) Hypertension: Plan: Patient had 2 episodes 02/07 in the evening consistent with orthostasis. In 1 episode he had some seizure-like activity which was secondary to the drop in pressure. Patient has some relatively mild aspirin toxicity which seems to be improving. Currently, he has no focal neurologic deficits or evidence of seizure activity. He has no meningeal signs or encephalopathy. EEG 02-08 was nonfocal and had no potentially epileptogenic activity. He has a history of severe chronic restless leg syndrome, on pramipexole. He has significant cluster headaches recently after several years being fairly headache free. He does have a history of hypertension which could trigger these. Blood pressure is improved. Recommendations: 1. MRI of the brain with and without contrast. 2. Repeat sumatriptan 6 milligram subcutaneous today. Avoid aspirin for treating his headaches. 3. Agree with ketorolac as needed for headache pain. 4. Consider additional treatments both as treatment and prevention for his cluster migraines, but this is best done as an outpatient. 5. Consider alternatives for restless leg syndrome. Pramipexole can be increased to a total of 4.5 milligrams per day which may help his restless leg syndrome symptoms. However, this medication has orthostatics side effects as well as the potential for confusion /hallucinations and dyskinesias. Therefore as an outpatient, I will consider alternatives, including low dose clonazepam at night. 6. I will follow in the hospital, but he will follow up with Dr. Dumont as an outpatient Overall, I spent a total of 35 minutes with this case including review of records, direct evaluation the patient bedside, and discussion of the case with the patient at bedside, RN at bedside, and Dr. Tate, including differential diagnosis and treatment options. Admission and Anticipated Discharge Date Admission Date: February 07, 2021 Subjective patient tells me that the sumatriptan injection he had yesterday completely resolved his headache. He did well until evening and last night the headache returned. He was given Benadryl and ketorolac which helped his headache. This morning his headache is a "2 to 3/10" and is left mid frontal. It is an achy pain. He has a little numbness on his forehead as well. He is not as restless with his legs this morning and is lying comfortably in bed. Nursing reports no further syncope or near-syncope. Blood pressure is 157/73 and CBC shows a mild anemia. Results & Data ([facility]) Vital Signs (Past 12 Hours) Vital Signs Temp Pulse Pulse Resp BP Pulse Ox 02/09/21 07:20 37.3 C 69 20 157/73 H 98 02/09/21 04:00 37.0 C 60 18 158/70 H 97 02/09/21 00:31 42 L 02/09/21 00:00 36.7 C 64 18 169/82 H 94 02/08/21 22:24 64 02/08/21 20:45 36.8 C 52 L 18 180/83 H 95 Exam (Neuro) Physical Exam: Patient is awake and alert. His speech is without aphasia or dysarthria. Mood and affect are normal appropriate. Thought processes are intact with good long and short-term memory To conversation. He has no abnormal involuntary movements or restlessness today. Extraocular eye muscles are intact without nystagmus. There is no facial droop. Coordination is normal in the arms without tremor or ataxia. Strength is symmetrical in the arms. PG Care Time/CCT Total # of Minutes Spent Total Time Spent with Patient: Total time spent is greater than 50% in coordination of care (as documented) at patient's floor/unit and/or counseling patient: Coding Level of Care Code 07324 Subseq Hosp Care Lvl 3 Diagnoses Seizure-like activity R56.9 Orthostatic syncope I95.1 Restless leg syndrome G25.81 Cluster headache G44.009 Hypertension I10 Time Spent (min) 35
[2021-02-09] MEDS: CHLORTHALIDONE 25 MG TAB PO SCH (09:01)
[2021-02-09] MEDS: LABETALOL HCL 200 MG TAB PO SCH (09:01)
[2021-02-09] MEDS: LOSARTAN POTASSIUM 50 MG TAB PO SCH (09:02)
[2021-02-09] MEDS: HEPARIN SOD 5,000 UNIT/0.5 ML VIAL SQ SCH (09:02)
[2021-02-09] MEDS: hydrALAZINE TAB 50 MG TAB PO SCH ×2 (09:02→14:13)
[2021-02-09] MEDS: FLUTICASONE/VILANTEROL 200/25MCG 14 PUFFS/INHALER INH SCH (09:03)
[2021-02-09] MEDS ORDERED: SUMAtriptan succinate 6 MG/0.5 ML VIAL SQ ONE ×2 (09:30→10:53)
[2021-02-09] MEDS: PANTOprazole 40 MG in SYRINGE 0 ML IV SCH (11:11)
[2021-02-09] MEDS ORDERED: GADOBUTROL 65ML VIAL IV ONE (13:20)
--- NOTE | 2021-02-09 13:48 | Magnetic Resonance Report ---
MR brain wo/w con HISTORY: 60 years-old Male headaches subacute headache with prior trauma COMPARISON: Head CT 02/07/2021, brain MRI 05/15/2014 TECHNIQUE: Multiplanar multisequence MRI of the brain were obtained both with and without the use of 12.0 mL Gadavist FINDINGS: Timing Adjuster localizer images demonstrate no gross extracranial abnormality. There is no restricted diffusio n to suggest acute or subacute infarct. Low-lying cerebellar tonsils. No acute intracranial hemorrhag e, midline shift, abnormal extra-axial collection, hydrocephalus or intracranial mass. No pathologic blooming artifact. No significant T2/FLAIR signal abnormalities of the brain parenchyma. No abnormal intra-axial or extra-axial enhancement. Cerebral venous sinuses and major arterial flow voids appear patent. Bilateral mastoid effusions with mild mucosal thickening of the paranasal sinuses. The skull, orbits and soft tissues are unremarkabl e. IMPRESSION: 1. No acute intracranial abnormality. No acute or subacute infarct. 2. No abnormal enhancement. ACT 112: Negative or not required by law. The above report was generated using voice recognition software. It may contain grammatical, syntax o r spelling errors. Electronically signed by: Andrew Pascual M.D. 02/09/2021 1:46 PM
[2021-02-09 14:19] VITALS: BP 147/70; PULSE 58; TEMP 97.2; O2SAT 95
[2021-02-10 05:58] LABS: Codeine Urine NEGATIVE ng/mL (<50); Hydrocodone Urine NEGATIVE ng/mL (<50); Hydromor Urine NEGATIVE ng/mL (<50); Morphine Urine 337 ng/mL (<50); Norhydrocodone Conf Ur NEGATIVE ng/mL (<50); Noroxycodone Urine 171 ng/mL (<50); Oxycodone Urine 84 ng/mL (<50); Oxymorph Urine NEGATIVE ng/mL (<50)
--- NOTE | 2021-02-10 07:18 | Discharge Summary ---
Date of Service February 09, 2021 Admission HPI Per Admitting Provider 60 YOM with past medical history of: CAD, CABG x3 (fonseca to LAD), severe restless leg syndrome/comnambulism, atrial myxoma removal, cluster headaches, RUBEN. Patient comes to the EMD today for complaints of headache for 2 weeks, the headache is located on the left side of his head at his [employer]ec[employer]al. Feels sharp and stabbing in nature, this does not radiate and is associated with not being able to sleep. He has no nausea or vomiting and no other focal deficits. The pain does not get worse with eating/chewing, and no visual disturbances. He has been taking aspirin and Motrin for his headache without much relief. He states he has taken about 24 or more aspirin in the past 24 hours, and about 6-8 Motrin. He has history of cluster headaches but never in this area of his head. The patient is also sleep deprived as he also reports due to his headache and his RLS he has not had a good night's sleep within the past 24 hours. In the EMD the patient had routine labs done to include an ESR that resulted at 15. He also had a salicylate level done that was originally 18 and continued to increase to 20.3 within 3 hours. On his ABG he was with a PH of 7.31/44/142/22. His RR has ranged from 20-32 with adequate spo2. Patient denies any other symptoms. He is accompanied by his daughter and reviewing with her, his rapid movement of his legs is how he has been since she was little and this has also been preventing him from sleeping at night. Patient will be admitted to the ICU to continue to follow his acid/base balance and supportive care for his aspirin toxicity. Will follow his headache and add Tylenol and Toradol for pain control now. Patient has received his COVID vaccine and his COVID test at this time is: NEGATIVE Principal Diagnosis accidental aspirin overdose Discharge Exam General: awake, alert, no apparent distress Head: Normocephalic, atraumatic ENT: PERRL, EOMI, no pharyngeal exudate, mucous membranes moist Neuro: AAO x 3, speech clear and appropriate, strength intact bilaterally 5/5, sensation intact and equal all extremities and dermatomes, no pronator drift Chest: equal rise and fall of the chest, no accessory muscle use, no heaves or thrills, Clear to auscultation, on room air, Cardiac: Regular rate and rhythm, telemetry reviewed-NSR, skin warm dry, cap re fill <3 seconds, peripheral pulses, +2 no JVD, no murmur, no edema GI: NABS x 4 quadrants, soft, nontender to palpation, no rebound, guarding or tenderness : Spontaneously voiding, no pain, no CVA tenderness, Extremities: Normal inspection, no peripheral edema or erythema, calfs nontender to palpation Psych: Normal mood and affect Skin: no rash or erythema Discharge Data Allergies Allergy/AdvReac Type Severity Reaction Status Date / Time No Known Allergies Allergy Verified 01/03/21 12:54 Consultations 02/07/21 17:05 ED Decision to Admit Stat 02/07/21 21:11 Consult Subscription Clerk Routine 02/07/21 22:30 Consult Neurology Routine Ordered Studies 02/07/21 13:09 CT angio head w con Stat CT angio neck with con Stat 02/07/21 13:10 CT head/brain wo con Stat 02/09/21 08:48 MR brain wo/w con Routine Hospital Course (1) Accidental aspirin overdose: As per HPI taking for his headache- ~ 24 tabs/24 hours- last dose was around 10-11 oclock today -resolved. (2) Headache: ? cluster headache- CTA of the head and neck negative, as well noting venous sinuses clear - Toradol and x1 now - received Tylenol and Fentanyl in the EMD - with ESR being low and lack of other assessments- will hold on steroids for now - If aspirin level decreases and PH remains stable consider adding in other agents as RR and PH dictate Appreciate input from Neuro: Patient had 2 episodes 02/07 in the evening consistent with orthostasis. In 1 episode he had some seizure-like activity which was secondary to the drop in pressure. Patient has some relatively mild aspirin toxicity which seems to be improving. Appreciate input from neuro: (Below in Bold) Currently, he has no focal neurologic deficits or evidence of seizure activity. He has no meningeal signs or encephalopathy. EEG 02-08 was nonfocal and had no potentially epileptogenic activity. He has a history of severe chronic restless leg syndrome, on pramipexole. He has significant cluster headaches recently after several years being fairly headache free. He does have a history of hypertension which could trigger these. Blood pressure is improved. Recommendations: 1. MRI of the brain with and without contrast. 2. Repeat sumatriptan 6 milligram subcutaneous today. Avoid aspirin for treating his headaches. 3. Agree with ketorolac as needed for headache pain. 4. Consider additional treatments both as treatment and prevention for his cluster migraines, but this is best done as an outpatient. 5. Consider alternatives for restless leg syndrome. Pramipexole can be increased to a total of 4.5 milligrams per day which may help his restless leg syndrome symptoms. However, this medication has orthostatics side effects as well as the potential for confusion /hallucinations and dyskinesias. Therefore as an outpatient, I will consider alternatives, including low dose clonazepam at night. (3) Acidosis: Mild at this time- reach euvolemia - as above consider alkaline therapy for decreasing PH, HCo3, and increasing salicylate level - VBG recheck- - Continue to follow closely q2-4 defer to ICU - EtCO2 monitoring ordered Resolved (4) Obstructive sleep apnea: CPAP of 12 at home - patient's daughter to bring in home machine (5) Degenerative disc disease: Stable no acute needs (6) Hypertension: Continue Labetalol, continue hydralazine, continue candesartan, continue chlorthalidone - Meds verified from most recent outpatient visit (7) Dyslipidemia: Continue zetia (8) Cluster headache: As above will obtain MR head will place on sumatriptan (9) Restless leg syndrome: Continue pramipexole Total Time Total Time Spent Total Time Spent (In Minutes): 32 Discharge Plan Discharge Items Patient Disposition: Home - Self-Care Reason For Visit: ASPIRIN TOXICITY Discharge Diagnosis: aspirin toxicity Condition on Discharge: Fair Activity: Resume your previous activity Non-emergency contact: Primary Care Provider Call non-emergency contact if: you have any medication questions Follow-up/Referrals: Guillermo Stafford DO [Primary Care Provider] - 02/16/21 12:50 pm Diet: Regular Addtl Attending Provider Instructions: You have been hospitalized for an acute medical problem. During your stay at [facility], we have made an effort to correct the problem that brought you to the hospital while keeping you as comfortable as possible. Medications were used to bring your condition under control and your discharge instructions will include directions for any medications you should take after leaving the hospital. Please make sure you see your Primary Care Provider as part of your follow up plan. Pending Studies at Discharge: No Stand-Alone Forms: My [facility], Smoking Cessation Medications and DC Order Prescriptions: New ketorolac 10 mg tablet 10 mg PO DAILY PRN (Reason: pain) Qty: 14 RF: 0 Continued pramipexole [Mirapex] 0.5 mg tablet 1.5 mg PO QPM RF: 0 hydralazine 100 mg tablet 100 mg PO TID RF: 0 candesartan 32 mg tablet 32 mg PO DAILY RF: 0 ferrous sulfate [iron] 325 mg (65 mg iron) tablet 325 mg PO DAILY RF: 0 coenzyme Q10 [Co Q-10] 400 mg capsule 400 mg PO DAILY RF: 0 oxycodone-acetaminophen [Percocet] 5-325 mg tablet 1 tab PO Q8H PRN (Reason: pain) Qty: 35 RF: 0 labetalol 200 mg tablet 200 mg PO BID RF: 0 chlorthalidone 25 mg tablet 25 mg PO DAILY RF: 0 fluticasone propion-salmeterol [Advair Diskus] 500-50 mcg/dose blister with device 1 inh INHALATION BID RF: 0 Discontinued carvedilol [Coreg] 6.25 mg tablet 6.25 mg PO BID RF: 0 hydrochlorothiazide 25 mg tablet 25 mg PO DAILY RF: 0 spironolactone 25 mg tablet 25 mg PO DAILY RF: 0 ezetimibe 10 mg tablet 10 mg PO DAILY RF: 0 Discharge Orders: Discharge Order (Routine); Ordered 02/09/21 Ordered By: Quinn Tate Admission Data Admit Date/Time: 02/07/21 17:32 Attending Provider: Quinn Tate Admit Provider: Harley Vazquez Primary Care Provider: Guillermo Stafford Other Providers: Harley Vazquez ; Vinicius Escamilla ; Vinicius Dumont ; Apollo Dubon Christina R. ; Madison Maynard Other Interventions: Discharge Summary Assessment (RN) Last Done: 02/09/21 14:53 Coding Level of Care Code D/C DAY MANAGEMENT >30 MINS Diagnoses Accidental aspirin overdose T39.011A Encounter type: initial encounter Headache R51.9 Headache chronicity pattern: acute headache Headache type: unspecified Intractability: intractable Acidosis E87.2 Obstructive sleep apnea G47.33 Degenerative disc disease Hypertension I10 Dyslipidemia E78.5 Cluster headache G44.009 Restless leg syndrome G25.81
[2021-02-10] MEDS ORDERED: PANTOprazole 40 MG TAB PO SCH (09:00)
== END 2021-02-09 16:00 | disposition home or self-care (01) | DRG 918 ==
LOC: ED 12:44 → SUATTDRO 17:32 → 1E 17:32 → 2N 02-08 20:41
DX: F17.210 Nicotine dependence, cigarettes, uncomplicated; E87.2 Acidosis; T39.011A Poisoning by aspirin, accidental (unintentional), initial encounter; G47.33 Obstructive sleep apnea (adult) (pediatric); I95.1 Orthostatic hypotension; Z95.1 Presence of aortocoronary bypass graft; E86.0 Dehydration; E78.5 Hyperlipidemia, unspecified; G44.009 Cluster headache syndrome, unspecified, not intractable; I10 Essential (primary) hypertension; R06.82 Tachypnea, not elsewhere classified; Y92.009 Unspecified place in unspecified non-institutional (private) residence as the place of occurrence of the external cause; G25.81 Restless legs syndrome

== ENCOUNTER 2023-05-03 14:44 | Observation (INO) ==
[2023-05-03] MEDS ORDERED: LABETALOL HCL IV 5 MG/ML 20ML IV STA (15:08)
[2023-05-03 15:17] LABS: iSTAT Creatinine 0.8 mg/dl (0.6-1.3); iSTAT Hemoglobin 16.3 g/dl (14.0-18.0); iSTAT Ionized Calcium 1.19 mmol/l (1.12-1.32); iSTAT Potassium 3.7 mmol/L (3.3-5.0)
--- NOTE | 2023-05-03 15:17 | Emergency Department Note ---
Impression & Plan Near syncope, Hypertension, Tachycardia, Pedal edema ED Provider Note NAME: KIMBERLY FRITZ AGE: 63 SEX: M : 1960 ARRIVES VIA: Walk-In INFORMANT: Patient friend, nursing ED PROVIDER(S): Quinton Bobo MD CHIEF COMPLAINT: Cardiac assessment HISTORY OF PRESENT ILLNESS: The patient is a 63-year-old male with a history of triple bypass surgery. He has hypertension. The patient states that around 45 minutes ago he was walking from his truck when he suddenly felt his heart race. He did not feel well at all. He was not short of breath. The patient went to see a friend who was able to do some vital sign assessment. The friend is a music therapy specialist. The patient's pulse ox was around 95%. His heart rate was over 170. Blood pressure was adequate. The patient was awake but ashen in color. As per the friend, the patient's pulse seemed quick and regular. The patient was driven to this hospital by the friend. As per our triage nurse, the patient was staring and seemed unresponsive in the car. He was ashen in color. They brought him right back to and I was called emergently to see the patient. Upon my arrival in the room, the patient's heart rate was in the 80s, he was feeling better, he was awake and interactive. There was no reported postictal phase. As per the friend, at 1 point, he thought he saw some twitching of his extremities although there was no generalized tonic-clonic activity. PMHx/PSHx/Social Hx: See Below PHYSICAL EXAM: GENERAL: Patient is in no acute distress. Seems to be shivering some. HEENT: No acute trauma, normocephalic atraumatic, mucous membranes moist, no nasal congestion. NECK: No stridor, no adenopathy, no meningismus, trachea is midline. LUNGS: Clear to auscultation bilaterally when listening anterior, no wheeze, no rhonchi, breath sounds equal. Breath sounds somewhat diminished bilaterally. HEART: Without murmurs gallops or rubs, regular rate and rhythm. ABDOMEN: Soft, nontender, no peritonitis. EXTREMITIES: No cyanosis, full range of motion of all the joints without pain or difficulty. Moderate bilateral pedal edema. NEUROLOGIC: Oriented x 3, no acute motor or sensory deficits, no focal weakness. SKIN: No jaundice, no diaphoresis. DIFFERENTIAL DIAGNOSIS: Dysrhythmia, A-fib or a flutter, SVT, V. tach, NC, electrolyte imbalance, anemia, viral illness, COVID-19, influenza, fluid overload, among others. EMERGENCY DEPARTMENT PROCEDURES: MEDICAL DECISION MAKING: There is no leukocytosis or concerning anemia. There is a normal platelet count. No renal failure or significant electrolyte abnormality. No concerning liver enzyme elevation. Lactic acid level was not elevated making severe sepsis less likely. ECG showed a sinus rhythm with a first-degree block, no ST elevation. Cardiac enzyme testing x 1 was not consistent with acute cardiac injury. BNP was slightly elevated consistent with some potential fluid overload. Patient appeared to be in a euthyroid state. Chest x-ray does show some very mild CHF, no pneumonia. Urinalysis does not show findings of infection. COVID, influenza and RSV test were negative. On exam, the patient was hypertensive with pedal edema. The patient received IV labetalol, 10 mg. He was given IV Lasix, 40 mg. He was kept on the monitor and storage bin tender. The patient has done well. His blood pressure has decreased. He feels back to baseline. His rhythm has remained sinus. Patient likely had a tachyarrhythmia earlier today at least based on the description of was feeling and what his friend noted. He felt very unwell when this occurred. He had an event here in triage where he may have had a brief syncopal spell or near syncopal spell. He was not responding to the nursing staff. Unfortunately, his rhythm was not documented during this unresponsive spell. The patient requires a hospital stay and further workup. He needs a cardiology consult and further monitoring. I spoke with the patient and case management, the on-call hospitalist was consulted. Prior/Outside records/notes reviewed: ECG per my interpretation: Indication was tachycardia. The ECG shows what appears to be a sinus rhythm with a first-degree AV block. The rate is 88. There is some subtle ST depression in the lateral leads. No ST elevation. No PVCs. The QTc was 425. Compared to an ECG from 16 June 2022, I see no significant change. Continuous Cardiac Monitoring per my interpretation: An order was placed for continuous cardiac monitoring. The monitor shows a rate of 86 with normal sinus rhythm. Imaging/x-ray results per my interpretation: Chest x-ray shows some slight fluid overload, no pneumonia or pneumothorax. Chronic Medical/Social conditions affecting care: Coronary artery disease. Care/Management discussed with: Case management, the on-call hospitalist Level of care consideration(s): After review of the information above and other included data: --I believe the patient requires escalation of care to admission Critical Care Note: I have personally spent 51 minutes of critical care time in the direct management of this patient. This includes bedside care, interpretation of diagnostic studies, and testing, discussion with consultants, patient, and family members, and other required patient management activities. This 51 minutes is in excess of all separately billable procedures. DISPOSITION: Admission with cardiology consult Past Med/Surg History Medical History Accidental aspirin overdose Cluster headache Degenerative disc disease Dyslipidemia Hypertension Obstructive sleep apnea Lumbar stenosis with neurogenic claudication (01/15/14) Surgical History History of laminectomy History of coronary artery bypass graft History of cardiac cath Family History Father Myocardial infarction Mother Heart disease Social History Smoking Status: Current every day smoker Tobacco Type: Cigarettes Cigarettes Per Day: 10; Second Hand Exposure: No; Do You Dip or Chew Tobacco: No; Tobacco Cessation Education Requested by Patient: No Hx Alcohol Use: Yes Alcohol type: hard liquor Hx Substance Use: No Preferred Language: Tajik Communication Ability: Effective Hearing Ability: Normal Train Engineer Required: No Beliefs That Will Affect Care: None marital status: Single Current Living Situation: Alone current occupation: Retired Other Information That Helps Us Care for You: No Feels Safe at Home: Yes Safety Concerns: Feels Safe At This Time Assistive Devices: Glasses Allergies Allergies Allergy/AdvReac Type Severity Reaction Status Date / Time No Known Allergies Allergy Verified 05/03/23 15:37 Home Meds Home Medications Medication Instructions Recorded Confirmed candesartan 32 mg tablet 32 mg PO DAILY 01/13/19 05/03/23 hydralazine 100 mg tablet 100 mg PO TID 01/13/19 05/03/23 chlorthalidone 25 mg tablet 25 mg PO DAILY 02/07/21 05/03/23 fluticasone 500 mcg-salmeterol 50 1 inh inhalation BID 02/07/21 05/03/23 mcg/dose blistr powdr for inhalation (Advair Diskus) metoprolol succinate 50 mg 50 mg PO HS 06/16/22 05/03/23 tablet,extended release 24 hr rosuvastatin 5 mg tablet 5 mg PO DAILY 06/16/22 05/03/23 albuterol sulfate 90 mcg/actuation 2 puff inhalation Q4H PRN Wheezing 05/03/23 05/03/23 aerosol inhaler aspirin 81 mg tablet 81 mg PO HS 05/03/23 05/03/23 evolocumab 140 mg/mL subcutaneous 140 mg subcut .Q2WK 05/03/23 05/03/23 syringe (Repatha Syringe) pramipexole 0.5 mg tablet 0.5 mg PO QPM PRN NEEDED PER PT 05/03/23 05/03/23 pramipexole 1 mg tablet 1 mg PO HS 05/03/23 05/03/23 Previous Rx's Medication Instructions Recorded topiramate 25 mg tablet 25 mg PO BID #60 tabs 09/27/22 Results & Data (ED) Vital Signs Vital Signs - 24 hr 05/03/23 14:56 05/03/23 14:59 05/03/23 15:00 Temperature Temperature Source Pulse Rate 86 88 87 Pulse Rate [Right Finger] Pulse Rate from SpO2 Sensor Pulse Rhythm Regular Pulse Strength Normal Respiratory Rate 22 18 21 Respiratory Effort / Characteristics Non-Labored Respiratory Depth Normal Respiratory Pattern Regular Blood Pressure 202/116 H Blood Pressure [Right Arm] Blood Pressure Mean 144 Blood Pressure Mean [Right Arm] Blood Pressure Position Sitting Pulse Oximetry Oxygen Delivery Method Oxygen Flow Rate Sepsis Recent Fever Within 48 Hours No Sepsis New/Unexplained Change in Mental Status No Sepsis Action Taken by Nursing No Action Required 05/03/23 15:04 05/03/23 15:04 05/03/23 15:07 Temperature 36.9 C Temperature Source Oral Pulse Rate 89 Pulse Rate [Right Finger] Pulse Rate from SpO2 Sensor 88 Pulse Rhythm Pulse Strength Respiratory Rate 22 Respiratory Effort / Characteristics Respiratory Depth Respiratory Pattern Blood Pressure 195/113 H Blood Pressure [Right Arm] Blood Pressure Mean 144 Blood Pressure Mean [Right Arm] Blood Pressure Position Pulse Oximetry 96 Oxygen Delivery Method Oxygen Flow Rate Sepsis Recent Fever Within 48 Hours Sepsis New/Unexplained Change in Mental Status Sepsis Action Taken by Nursing 05/03/23 15:07 05/03/23 15:07 05/03/23 15:10 Temperature Temperature Source Pulse Rate 91 H 102 H Pulse Rate [Right Finger] Pulse Rate from SpO2 Sensor 92 H 100 H Pulse Rhythm Pulse Strength Respiratory Rate 13 14 Respiratory Effort / Characteristics Respiratory Depth Respiratory Pattern Blood Pressure 196/119 H Blood Pressure [Right Arm] Blood Pressure Mean 149 Blood Pressure Mean [Right Arm] Blood Pressure Position Pulse Oximetry 97 96 Oxygen Delivery Method Oxygen Flow Rate Sepsis Recent Fever Within 48 Hours Sepsis New/Unexplained Change in Mental Status Sepsis Action Taken by Nursing 05/03/23 15:13 05/03/23 15:16 05/03/23 15:20 Temperature Temperature Source Pulse Rate 86 85 Pulse Rate [Right Finger] Pulse Rate from SpO2 Sensor 84 Pulse Rhythm Pulse Strength Respiratory Rate 17 Respiratory Effort / Characteristics Respiratory Depth Respiratory Pattern Blood Pressure 196/119 H Blood Pressure [Right Arm] Blood Pressure Mean Blood Pressure Mean [Right Arm] Blood Pressure Position Pulse Oximetry 95 Oxygen Delivery Method Room Air Oxygen Flow Rate Sepsis Recent Fever Within 48 Hours Sepsis New/Unexplained Change in Mental Status Sepsis Action Taken by Nursing 05/03/23 15:27 05/03/23 15:27 05/03/23 15:28 Temperature Temperature Source Pulse Rate 77 Pulse Rate [Right Finger] 77 Pulse Rate from SpO2 Sensor 77 Pulse Rhythm Pulse Strength Respiratory Rate 15 19 Respiratory Effort / Characteristics Non-Labored Spontaneous Respiratory Depth Normal Respiratory Pattern Blood Pressure 160/100 H Blood Pressure [Right Arm] 160/100 H Blood Pressure Mean 111 Blood Pressure Mean [Right Arm] 120 Blood Pressure Position Pulse Oximetry 95 95 Oxygen Delivery Method Room Air Oxygen Flow Rate Sepsis Recent Fever Within 48 Hours Sepsis New/Unexplained Change in Mental Status Sepsis Action Taken by Nursing 05/03/23 15:30 05/03/23 15:30 05/03/23 15:40 Temperature Temperature Source Pulse Rate 76 Pulse Rate [Right Finger] 78 Pulse Rate from SpO2 Sensor 77 Pulse Rhythm Pulse Strength Respiratory Rate 23 16 Respiratory Effort / Characteristics Non-Labored Respiratory Depth Normal Respiratory Pattern Regular Blood Pressure 164/93 H Blood Pressure [Right Arm] Blood Pressure Mean 117 Blood Pressure Mean [Right Arm] Blood Pressure Position Pulse Oximetry 95 96 Oxygen Delivery Method Room Air Oxygen Flow Rate Sepsis Recent Fever Within 48 Hours Sepsis New/Unexplained Change in Mental Status Sepsis Action Taken by Nursing 05/03/23 15:40 05/03/23 15:40 05/03/23 15:44 Temperature Temperature Source Pulse Rate 81 83 Pulse Rate [Right Finger] Pulse Rate from SpO2 Sensor 81 81 Pulse Rhythm Pulse Strength Respiratory Rate 16 21 Respiratory Effort / Characteristics Respiratory Depth Respiratory Pattern Blood Pressure 194/112 H Blood Pressure [Right Arm] Blood Pressure Mean 140 Blood Pressure Mean [Right Arm] Blood Pressure Position Pulse Oximetry 96 97 Oxygen Delivery Method Oxygen Flow Rate Sepsis Recent Fever Within 48 Hours Sepsis New/Unexplained Change in Mental Status Sepsis Action Taken by Nursing 05/03/23 15:44 05/03/23 15:47 05/03/23 15:47 Temperature Temperature Source Pulse Rate 74 Pulse Rate [Right Finger] Pulse Rate from SpO2 Sensor 73 Pulse Rhythm Pulse Strength Respiratory Rate 20 Respiratory Effort / Characteristics Respiratory Depth Respiratory Pattern Blood Pressure 213/138 H 182/88 H Blood Pressure [Right Arm] Blood Pressure Mean 148 127 Blood Pressure Mean [Right Arm] Blood Pressure Position Pulse Oximetry 96 Oxygen Delivery Method Oxygen Flow Rate Sepsis Recent Fever Within 48 Hours Sepsis New/Unexplained Change in Mental Status Sepsis Action Taken by Nursing 05/03/23 15:48 05/03/23 15:50 05/03/23 16:00 Temperature Temperature Source Pulse Rate 74 73 Pulse Rate [Right Finger] 76 Pulse Rate from SpO2 Sensor 74 75 Pulse Rhythm Pulse Strength Respiratory Rate 18 20 16 Respiratory Effort / Characteristics Non-Labored Respiratory Depth Normal Respiratory Pattern Blood Pressure Blood Pressure [Right Arm] 182/88 H Blood Pressure Mean Blood Pressure Mean [Right Arm] 119 Blood Pressure Position Pulse Oximetry 96 95 95 Oxygen Delivery Method Room Air Oxygen Flow Rate Sepsis Recent Fever Within 48 Hours Sepsis New/Unexplained Change in Mental Status Sepsis Action Taken by Nursing 05/03/23 16:01 05/03/23 16:01 05/03/23 16:01 Temperature Temperature Source Pulse Rate 71 Pulse Rate [Right Finger] 72 Pulse Rate from SpO2 Sensor 70 Pulse Rhythm Pulse Strength Respiratory Rate 19 15 Respiratory Effort / Characteristics Non-Labored Respiratory Depth Normal Respiratory Pattern Blood Pressure 175/87 H Blood Pressure [Right Arm] 175/87 H Blood Pressure Mean 114 Blood Pressure Mean [Right Arm] 116 Blood Pressure Position Pulse Oximetry 94 94 Oxygen Delivery Method Room Air Oxygen Flow Rate Sepsis Recent Fever Within 48 Hours Sepsis New/Unexplained Change in Mental Status Sepsis Action Taken by Nursing 05/03/23 16:05 05/03/23 16:10 05/03/23 16:20 Temperature Temperature Source Pulse Rate 73 76 73 Pulse Rate [Right Finger] Pulse Rate from SpO2 Sensor 77 72 Pulse Rhythm Pulse Strength Respiratory Rate 19 19 Respiratory Effort / Characteristics Respiratory Depth Respiratory Pattern Blood Pressure Blood Pressure [Right Arm] Blood Pressure Mean Blood Pressure Mean [Right Arm] Blood Pressure Position Pulse Oximetry 94 95 Oxygen Delivery Method Oxygen Flow Rate Sepsis Recent Fever Within 48 Hours Sepsis New/Unexplained Change in Mental Status Sepsis Action Taken by Nursing 05/03/23 16:30 05/03/23 16:30 05/03/23 16:31 Temperature Temperature Source Pulse Rate 71 Pulse Rate [Right Finger] 70 Pulse Rate from SpO2 Sensor 69 Pulse Rhythm Pulse Strength Respiratory Rate 19 19 Respiratory Effort / Characteristics Non-Labored Respiratory Depth Normal Respiratory Pattern Blood Pressure 165/92 H Blood Pressure [Right Arm] 165/92 H Blood Pressure Mean 113 Blood Pressure Mean [Right Arm] 116 Blood Pressure Position Pulse Oximetry 95 95 Oxygen Delivery Method Room Air Oxygen Flow Rate Sepsis Recent Fever Within 48 Hours Sepsis New/Unexplained Change in Mental Status Sepsis Action Taken by Nursing 05/03/23 16:40 05/03/23 16:50 05/03/23 16:55 Temperature Temperature Source Pulse Rate 77 66 67 Pulse Rate [Right Finger] Pulse Rate from SpO2 Sensor 77 66 68 Pulse Rhythm Pulse Strength Respiratory Rate 34 H 24 19 Respiratory Effort / Characteristics Respiratory Depth Respiratory Pattern Blood Pressure Blood Pressure [Right Arm] Blood Pressure Mean Blood Pressure Mean [Right Arm] Blood Pressure Position Pulse Oximetry 97 95 96 Oxygen Delivery Method Oxygen Flow Rate Sepsis Recent Fever Within 48 Hours Sepsis New/Unexplained Change in Mental Status Sepsis Action Taken by Nursing 05/03/23 16:55 05/03/23 17:00 05/03/23 17:00 Temperature Temperature Source Pulse Rate 75 Pulse Rate [Right Finger] Pulse Rate from SpO2 Sensor 77 Pulse Rhythm Pulse Strength Respiratory Rate 19 Respiratory Effort / Characteristics Respiratory Depth Respiratory Pattern Blood Pressure 179/103 H Blood Pressure [Right Arm] Blood Pressure Mean 131 Blood Pressure Mean [Right Arm] Blood Pressure Position Pulse Oximetry 96 Oxygen Delivery Method Room Air Oxygen Flow Rate 0 Sepsis Recent Fever Within 48 Hours Sepsis New/Unexplained Change in Mental Status Sepsis Action Taken by Nursing 05/03/23 17:00 05/03/23 17:10 Temperature Temperature Source Pulse Rate 70 Pulse Rate [Right Finger] Pulse Rate from SpO2 Sensor 70 Pulse Rhythm Pulse Strength Respiratory Rate 16 Respiratory Effort / Characteristics Respiratory Depth Respiratory Pattern Blood Pressure 168/90 H Blood Pressure [Right Arm] Blood Pressure Mean 129 Blood Pressure Mean [Right Arm] Blood Pressure Position Pulse Oximetry 96 Oxygen Delivery Method Oxygen Flow Rate Sepsis Recent Fever Within 48 Hours Sepsis New/Unexplained Change in Mental Status Sepsis Action Taken by Alf Medications Current Medication List: was personally reviewed by me Laboratory Data Attestation: I reviewed the patient's lab results. 05/03/23 14:57 05/03/23 14:57 Lab Results 05/03/23 05/03/23 05/03/23 Range/Units 14:57 15:03 15:10 WBC 9.29 (4.8-10.8) K/ul RBC 5.28 (4.70-6.10) M/uL Hgb 15.8 (14.0-18.0) g/dl POC Hgb 16.3 (14.0-18.0) g/dl Hct 47.7 (42.0-52.0) % POC Hct 48 (42-52) % MCV 90.3 (80.0-100.0) fL MCH 29.9 (25.0-34.0) pg MCHC 33.1 (32.0-36.0) g/dL RDW Std Deviation 48.2 H (36.4-46.3) fL RDW Coeff of Patrice 14.6 H (11.5-14.5) % Plt Count 175 (130-400) K/uL MPV 11.2 (9.4-12.4) fL Immature Gran % (Auto) 0.4 % Neut % (Auto) 65.8 % Lymph % (Auto) 18.4 % [place] % (Auto) 7.5 % Eos % (Auto) 6.7 % Baso % (Auto) 1.2 % Neut # (Auto) 6.11 (1.40-6.50) K/uL Lymph # (Auto) 1.71 (1.20-3.40) K/uL [place] # (Auto) 0.70 H (0.11-0.59) K/uL Eos # (Auto) 0.62 H (0.00-0.50) K/uL Baso # (Auto) 0.11 (0.00-0.20) K/uL Immature Gran # (Auto) 0.04 (0.01-0.20) K/uL POC Sodium 141 (135-144) mmol/L Sodium 141 (136-145) mmol/L POC Potassium 3.7 (3.3-5.0) mmol/L Potassium 3.7 (3.5-5.1) mmol/L POC Chloride 103 (101-112) mmol/L Chloride 104 (98-107) mmol/L Carbon Dioxide 29 (21-32) mmol/L POC Total CO2 27 (24-31) mmol/L Anion Gap 8 (3-11) POC Anion Gap 15.0 L (16-25) mmol/L POC BUN 19 H (7-18) mg/dl BUN 19 (6-23) mg/dl Creatinine 0.87 (0.6-1.4) mg/dl POC Creatinine 0.8 (0.6-1.3) mg/dl Est Cr Clr Drug Dosing 116.0 ml/min Est GFR ( Amer) 105.0 ml/min Est GFR (Non-Af Amer) 90.6 ml/min BUN/Creatinine Ratio 21.8 H (10-20) Glucose 137 H (70-99(Fasting)) mg/dl POC Glucose (other) 136 H (70-99) mg/dl Lactate (0.4-2.0) mmol/L Calcium 9.7 (8.6-10.3) mg/dl POC Ioniz Calcium Sourav 1.19 (1.12-1.32) mmol/l Magnesium 2.0 (1.7-2.4) mg/dl Total Bilirubin 0.7 (0.2-1.0) mg/dl AST 29 (13-39) U/L ALT 87 H (7-52) U/L Alkaline Phosphatase 120 H (34-104) U/L Troponin I High Sens 16.5 (0-20) pg/ml B-Natriuretic Peptide 230 H (0-100) pg/ml Total Protein 7.5 (6.0-8.3) gm/dl Albumin 4.4 (3.4-5.0) gm/dl Globulin 3.1 (2.5-4.0) gm/dl Albumin/Globulin Ratio 1.4 (0.9-2) TSH 2.868 (0.300-4.500) uIu/ml Urine Color Yellow Urine Appearance Clear (Clear) Urine pH 7.5 (4.5-7.5) Ur Specific [place] 1.005 (1.000-1.030) Urine Protein 1+ H (Negative) Urine Glucose (UA) Negative (Negative) Urine Ketones Negative (Negative) Urine Blood Negative (Negative) Urine Nitrite Negative (Negative) Urine Bilirubin Negative (Negative) Urine Urobilinogen Negative (Negative) Ur Leukocyte Esterase Negative (Negative) Urine WBC (Auto) 0 (0-5) /hpf Urine RBC (Auto) 0-4 (0-4) /hpf U Hyaline Cast (Auto) 0 (0-5) /lpf U Epithel Cells (Auto) 0-5 (0-5) /lpf Urine Bacteria (Auto) Negative (Negative) SARS-CoV-2 (PCR) (Negative) Influenza Type A (PCR) (Neg) Influenza Type B (PCR) (Neg) RSV (RT-PCR) (Neg) 05/03/23 05/03/23 Range/Units 15:15 15:36 WBC (4.8-10.8) K/ul RBC (4.70-6.10) M/uL Hgb (14.0-18.0) g/dl POC Hgb (14.0-18.0) g/dl Hct (42.0-52.0) % POC Hct (42-52) % MCV (80.0-100.0) fL MCH (25.0-34.0) pg MCHC (32.0-36.0) g/dL RDW Std Deviation (36.4-46.3) fL RDW Coeff of Patrice (11.5-14.5) % Plt Count (130-400) K/uL MPV (9.4-12.4) fL Immature Gran % (Auto) % Neut % (Auto) % Lymph % (Auto) % [place] % (Auto) % Eos % (Auto) % Baso % (Auto) % Neut # (Auto) (1.40-6.50) K/uL Lymph # (Auto) (1.20-3.40) K/uL [place] # (Auto) (0.11-0.59) K/uL Eos # (Auto) (0.00-0.50) K/uL Baso # (Auto) (0.00-0.20) K/uL Immature Gran # (Auto) (0.01-0.20) K/uL POC Sodium (135-144) mmol/L Sodium (136-145) mmol/L POC Potassium (3.3-5.0) mmol/L Potassium (3.5-5.1) mmol/L POC Chloride (101-112) mmol/L Chloride (98-107) mmol/L Carbon Dioxide (21-32) mmol/L POC Total CO2 (24-31) mmol/L Anion Gap (3-11) POC Anion Gap (16-25) mmol/L POC BUN (7-18) mg/dl BUN (6-23) mg/dl Creatinine (0.6-1.4) mg/dl POC Creatinine (0.6-1.3) mg/dl Est Cr Clr Drug Dosing ml/min Est GFR ( Amer) ml/min Est GFR (Non-Af Amer) ml/min BUN/Creatinine Ratio (10-20) Glucose (70-99(Fasting)) mg/dl POC Glucose (other) (70-99) mg/dl Lactate 0.9 (0.4-2.0) mmol/L Calcium (8.6-10.3) mg/dl POC Ioniz Calcium Sourav (1.12-1.32) mmol/l Magnesium (1.7-2.4) mg/dl Total Bilirubin (0.2-1.0) mg/dl AST (13-39) U/L ALT (7-52) U/L Alkaline Phosphatase (34-104) U/L Troponin I High Sens (0-20) pg/ml B-Natriuretic Peptide (0-100) pg/ml Total Protein (6.0-8.3) gm/dl Albumin (3.4-5.0) gm/dl Globulin (2.5-4.0) gm/dl Albumin/Globulin Ratio (0.9-2) TSH (0.300-4.500) uIu/ml Urine Color Urine Appearance (Clear) Urine pH (4.5-7.5) Ur Specific [place] (1.000-1.030) Urine Protein (Negative) Urine Glucose (UA) (Negative) Urine Ketones (Negative) Urine Blood (Negative) Urine Nitrite (Negative) Urine Bilirubin (Negative) Urine Urobilinogen (Negative) Ur Leukocyte Esterase (Negative) Urine WBC (Auto) (0-5) /hpf Urine RBC (Auto) (0-4) /hpf U Hyaline Cast (Auto) (0-5) /lpf U Epithel Cells (Auto) (0-5) /lpf Urine Bacteria (Auto) (Negative) SARS-CoV-2 (PCR) NEGATIVE (Negative) Influenza Type A (PCR) Negative (Neg) Influenza Type B (PCR) Negative (Neg) RSV (RT-PCR) Negative (Neg) Administered Medications Aspirin (Aspirin 81 Mg Ectab) 81 mg PO HS CARLO Stop: 06/02/23 22:29 Last Admin: 05/03/23 22:54 Dose: 81 mg Documented By: PAH Enoxaparin Sodium (Enoxaparin Inj 40 Mg/0.4 Ml Syr) 40 mg SQ QPM CARLO Stop: 06/02/23 22:19 Last Admin: 05/03/23 22:54 Dose: 40 mg Documented By: PAH Hydralazine HCl (Hydralazine Tab 50 Mg Tab) 100 mg PO TID CARLO Stop: 06/02/23 20:59 Last Admin: 05/03/23 21:18 Dose: 100 mg Documented By: PAH Metoprolol Succinate (Metoprolol Succ 50mg Ext Rel Tab) 50 mg PO HS CARLO Stop: 06/02/23 20:59 Last Admin: 05/03/23 21:18 Dose: 50 mg Documented By: PAH Pramipexole Dihydrochloride (Pramipexole Dihydrochlo 0.5 Mg Tab) 1 mg PO HS CARLO Stop: 06/02/23 20:59 Last Admin: 05/03/23 21:18 Dose: 1 mg Documented By: PAH Topiramate (Topiramate 25 Mg Tab) 25 mg PO BID CARLO Stop: 06/02/23 20:59 Last Admin: 05/03/23 21:18 Dose: 25 mg Documented By: PAH Discontinued Medications Furosemide (Furosemide 40 Mg/4 Ml Vial) 40 mg IV ONE ONE Stop: 05/03/23 16:27 Last Admin: 05/03/23 16:40 Dose: 40 mg Documented By: NRB Labetalol HCl (Labetalol Hcl Iv 5 Mg/Ml 20ml) 10 mg IV NOW STA Stop: 05/03/23 15:09 Last Admin: 12/15/23 15:16 Dose: 10 mg Documented By: MERVAT Co-signed By: ZELDA Imaging Data Radiologist's Impression: Chest X-Ray 05/03/23 15:06 XR chest 1V portable HISTORY: weakness COMPARISON: Chest 06/16/2022. FINDINGS: No pneumothorax. No pleural effusions. There are low lung volumes. The heart remains mildly enlarged. There are poststernotomy changes and cervical spinal fusion hardware. Mild interstitial/vascular thickening which has progressed. This may represent mild congestive change. No new focal lung consolidations identified. IMPRESSION: Cardiomegaly and mild pulmonary vascular congestion. This has progressed in the interval. ACT 112: Negative or not required by law. Electronically signed by: Ryan Yap M.D. 05/03/2023 4:12 PM Discharge Plan Visit Data Chief Complaint: Cardiac Assessment Stated Complaint: HYPERTENSION, TACHYCARDIA, FAINT ED Provider: Quinton Bobo Discharge Problem: Near syncope, Hypertension, Tachycardia, Pedal edema Patient Disposition: Admitted As Inpatient Condition: Fair Discharge Instructions Interventions: ED Discharge Assessment Last Done: 05/03/23 19:51 Discharge Problem: Hypertension Qualifiers: Hypertension type: unspecified Qualified Code(s): I10 - Essential (primary) hypertension
[2023-05-03 15:31] LABS: Appearance Urine Clear (Clear); Bacteria Urine Automated Negative (Negative); Bilirubin Urine Negative (Negative); Blood Urine Negative (Negative); Cast Urine Automated 0 /lpf (0-5); Color Urine Yellow; Epithelial Cell Urine Auto 0-5 /lpf (0-5); Glucose Urine UA Negative (Negative); Ketones Urine Negative (Negative); Leukocyte Esterase Urine Negative (Negative); Nitrite Urine Negative (Negative); RBC Urine Automated 0-4 /hpf (0-4); Specific Gravity Urine 1.005 (1.000-1.030); Urobilinogen Urine Negative (Negative); WBC Urine Automated 0 /hpf (0-5); pH Urine 7.5 (4.5-7.5)
[2023-05-03 15:32] LABS: Basophils # (auto) 0.11 K/uL (0.00-0.20); Basophils % (auto) 1.2 %; Eosinophils # (auto) 0.62 K/uL (0.00-0.50); Eosinophils % (auto) 6.7 %; Hematocrit (blood only) 47.7 % (42.0-52.0); Hemoglobin 15.8 g/dl (14.0-18.0); Immature Granulocytes # (auto) 0.04 K/uL (0.01-0.20); Immature Granulocytes % (auto) 0.4 %; Lymphocytes # (auto) 1.71 K/uL (1.20-3.40); Lymphocytes % (auto) 18.4 %; Mean Corpuscular Hemoglobin 29.9 pg (25.0-34.0); Mean Corpuscular Hgb Conc 33.1 g/dL (32.0-36.0); Mean Corpuscular Volume 90.3 fL (80.0-100.0); Mean Platelet Volume 11.2 fL (9.4-12.4); Monocytes % (auto) 7.5 %; Neutrophils # (auto) 6.11 K/uL (1.40-6.50); Neutrophils % (auto) 65.8 %; Platelet Count 175 K/uL (130-400); RDW Coefficient of Variation 14.6 % (11.5-14.5); RDW Standard Deviation 48.2 fL (36.4-46.3); Red Blood Count 5.28 M/uL (4.70-6.10); White Blood Count 9.29 K/ul (4.8-10.8)
[2023-05-03 15:37] LABS: Protein Urine 1+ (Negative)
[2023-05-03 15:43] LABS: Albumin Globulin Ratio 1.4 (0.9-2); Albumin Level 4.4 gm/dl (3.4-5.0); BUN Creatinine Ratio 21.8 (10-20); Bilirubin,Total 0.7 mg/dl (0.2-1.0); Calcium 9.7 mg/dl (8.6-10.3); Est GFR (Non-African American) 90.6 ml/min; Globulin 3.1 gm/dl (2.5-4.0); Potassium 3.7 mmol/L (3.5-5.1); Total Protein 7.5 gm/dl (6.0-8.3)
[2023-05-03 15:58] LABS: Thyroid Stimulating Hormone 2.868 uIu/ml (0.300-4.500)
[2023-05-03 16:04] LABS: Influenza A virus by PCR Negative (Neg); Influenza B virus by PCR Negative (Neg); RSV by PCR Negative (Neg); SARS CoV2 RNA(COVID-19) Ceph NEGATIVE (Negative)
--- NOTE | 2023-05-03 16:14 | XRay Report ---
XR chest 1V portable HISTORY: weakness COMPARISON: Chest 06/16/2022. FINDINGS: No pneumothorax. No pleural effusions. There are low lung volumes. The heart remains mildly enlarged. There are poststernotomy changes and cervical spinal fusion hardware. Mild interstitial/va scular thickening which has progressed. This may represent mild congestive change. No new focal lung consolidations identified. IMPRESSION: Cardiomegaly and mild pulmonary vascular congestion. This has progressed in the interval. ACT 112: Negative or not required by law. Electronically signed by: Ryan Yap M.D. 05/03/2023 4:12 PM
[2023-05-03] MEDS ORDERED: FUROSEMIDE 40 MG/4 ML VIAL IV ONE (16:26)
[2023-05-03 16:40] LABS: Troponin I High Sensitivity 16.5 pg/ml (0-20)
--- NOTE | 2023-05-03 17:23 | History & Physical Report ---
Date of Service May 03, 2023 Assessment & Plan (1) Tachyarrhythmia: Plan: Given ashen appearance per triage suspicion has to be for a ventricular rather than atrial arrhythmia - although no objective evidence of either as broke prior to getting him on telemetry Since we have no objective evidence and he is currently in normal sinus rhythm and asymptomatic do not recommend amiodarone at this time Monitor on telemetry overnight for recurrence Trend troponin q6h - low suspicion of ACS given lack of chest pain or shortness of breath, post arrhythmia EKG unremarkable Bed rest - need to keep monitor on at all times TTE Consult cardiology (2) Acute heart failure with preserved ejection fraction: Plan: Moderate to severe mitral regurgitation on previous echocardiogram in 2020 Repeat TTE ordered Lasix 40mg IV - continue daily Strict I&Os Daily weights (3) Obstructive sleep apnea: Plan: CPAP HS (4) Restless leg syndrome: Plan: Continue pramipexole Plan VTE Prophylaxis - Lovenox 40mg SQ daily Diet - heart healthy Disposition - admit to PCU Admission and Anticipated Discharge Date Admission Date: May 03, 2023 History of Present Illness Chief Complaint: Tachycardia Primary Care Provider: DO Yahir Monique Tammy is a 63 year old male with 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 He reports feeling well earlier today. Initial palpitations started at 2:15 PM at [place] cabin. He felt generally unwell and drove next-door 500 yards to his friend who is a vet and checked his blood pressure which was high and his heart rate which was in the 170s. Given his elevated heart rate his friend drove him to the emergency room. Started 2:15pm at his cabin and drove next door 500 yards. Saw his friend who was a vet and checked blood pressure and pulse was in 170s and drove him to the ER. Reportedly unsteady on his feet and in and out of for alertness. He was unresponsive in the waiting room with an ashen appearance and was brought immediately to room B1. Found to be in normal sinus rhythm in the 80s and became much more responsive and answering questions appropriately. He is currently alert and orientated x 3. He reports no current chest pain, shortness of breath, diaphoresis, nausea. He denies any chest pain prior to this episode. He denies any prior arrhythmias. He took all his morning medications this morning but did miss his midday hydralazine. Previous echocardiogram in 2020 showed a left ventricular ejection fraction 65 to 70%. Moderate to severe mitral regurgitation. He follows with Dr. Jaime with pulmonology due to history of triple bypass. He does negative a general feeling of something being wrong over the last week. He denies any chest pain, shortness of breath, fever, chills, respiratory symptoms, urinary symptoms, gastrointestinal symptoms. No presyncope or syncope. No palpitations other than today. He does report swelling in his legs and feet have increased over the last week. Unknown if having weight gain over the same period. Allergies Allergy/AdvReac Type Severity Reaction Status Date / Time No Known Allergies Allergy Verified 05/03/23 15:37 Home Medications Medication Instructions Recorded Confirmed Type candesartan 32 mg tablet 32 mg PO DAILY 01/13/19 05/03/23 History hydralazine 100 mg tablet 100 mg PO TID 01/13/19 05/03/23 History chlorthalidone 25 mg tablet 25 mg PO DAILY 02/07/21 05/03/23 History fluticasone 500 mcg-salmeterol 50 1 inh inhalation BID PRN Shortness 02/07/21 05/03/23 History mcg/dose blistr powdr for Of Breath inhalation (Advair Diskus) metoprolol succinate 50 mg 50 mg PO HS 06/16/22 05/03/23 History tablet,extended release 24 hr rosuvastatin 5 mg tablet 5 mg PO DAILY 06/16/22 05/03/23 History topiramate 25 mg tablet 25 mg PO BID #60 tabs 09/27/22 05/03/23 Rx albuterol sulfate 90 mcg/actuation 2 puff inhalation Q4H PRN Wheezing 05/03/23 05/03/23 History aerosol inhaler aspirin 81 mg tablet 81 mg PO HS 05/03/23 05/03/23 History evolocumab 140 mg/mL subcutaneous 140 mg subcut .Q2WK 05/03/23 05/03/23 History syringe (Repatha Syringe) pramipexole 0.5 mg tablet 0.5 mg PO QPM PRN NEEDED PER PT 05/03/23 05/03/23 History pramipexole 1 mg tablet 1 mg PO HS 05/03/23 05/03/23 History Past Med/Surg History Medical History (Updated 05/03/23 @ 22:18 by Yann Diamond MD) Accidental aspirin overdose Cluster headache Degenerative disc disease Dyslipidemia Hypertension Obstructive sleep apnea Lumbar stenosis with neurogenic claudication (01/15/14) Surgical History History of laminectomy History of coronary artery bypass graft History of cardiac cath Family History Father Myocardial infarction Mother Heart disease Social History Smoking Status: Current every day smoker Tobacco Type: Cigarettes Cigarettes Per Day: 10; Second Hand Exposure: No; Do You Dip or Chew Tobacco: No; Tobacco Cessation Education Requested by Patient: No Hx Alcohol Use: Yes Alcohol type: hard liquor Hx Substance Use: No Preferred Language: Armenian Communication Ability: Effective Hearing Ability: Normal Corporate Sales Manager Required: No Beliefs That Will Affect Care: None marital status: Single Current Living Situation: Alone current occupation: Retired Other Information That Helps Us Care for You: No Feels Safe at Home: Yes Safety Concerns: Feels Safe At This Time Assistive Devices: Glasses Review of Systems Review of Systems: All systems reviewed & are unremarkable except as noted in HPI & below Physical Exam Constitutional: WD/WN, vitals as above Eyes: PERRL, conjunctivae normal, anicteric sclerae ENMT: external ear and nose normal, oropharynx normal Respiratory: normal respiratory effort, lungs clear to auscultation Cardiovascular: RRR, no murmur, no edema Gastrointestinal (Abdomen): normal bowel sounds, soft, nontender, no hepatosplenomegaly Musculoskeletal: no cyanosis or clubbing, extremities motor strength 5/5 Skin: no rashes, warm and dry Neurologic: moves all extremities and awake; not confused Psychiatric: A+Ox3, euthymic affect Results & Data Results & Data Vital Signs (Past 12 Hours) Vital Signs Temp Pulse Pulse Resp BP BP Pulse Ox 05/03/23 16:31 70 19 165/92 H 95 05/03/23 16:05 73 05/03/23 16:01 72 19 175/87 H 94 05/03/23 15:48 76 18 182/88 H 96 05/03/23 15:40 78 16 96 05/03/23 15:28 77 19 160/100 H 95 05/03/23 15:16 86 196/119 H 05/03/23 15:13 05/03/23 15:07 36.9 C 05/03/23 14:56 86 22 202/116 H O2 Del Method 05/03/23 16:31 Room Air 05/03/23 16:05 05/03/23 16:01 Room Air 05/03/23 15:48 Room Air 05/03/23 15:40 Room Air 05/03/23 15:28 Room Air 05/03/23 15:16 05/03/23 15:13 Room Air 05/03/23 15:07 05/03/23 14:56 Laboratory Results Abnormal lab results 05/03/23 05/03/23 05/03/23 Range/Units 14:57 15:03 15:10 RDW Std Deviation 48.2 H (36.4-46.3) fL RDW Coeff of Patrice 14.6 H (11.5-14.5) % [place] # (Auto) 0.70 H (0.11-0.59) K/uL Eos # (Auto) 0.62 H (0.00-0.50) K/uL POC Anion Gap 15.0 L (16-25) mmol/L POC BUN 19 H (7-18) mg/dl BUN/Creatinine Ratio 21.8 H (10-20) Glucose 137 H (70-99(Fasting)) mg/dl POC Glucose (other) 136 H (70-99) mg/dl ALT 87 H (7-52) U/L Alkaline Phosphatase 120 H (34-104) U/L B-Natriuretic Peptide 230 H (0-100) pg/ml Urine Protein 1+ H (Negative) Diagnostic Findings XR chest 1V portable HISTORY: weakness COMPARISON: Chest 06/16/2022. FINDINGS: No pneumothorax. No pleural effusions. There are low lung volumes. The heart remains mildly enlarged. There are poststernotomy changes and cervical spinal fusion hardware. Mild interstitial/vascular thickening which has progressed. This may represent mild congestive change. No new focal lung consolidations identified. IMPRESSION: Cardiomegaly and mild pulmonary vascular congestion. This has progressed in the interval. Medications Administered ER medications given: Labetalol 10 mg IV Lasix 40 mg IV ECG Rate (beats per minute): 88 Rhythm: normal sinus Findings: + 1st degree AV block and + nonspecific-ST abn Comparison ECG Date: from (June 06, 2022) Change: the following changes noted (T wave inversion no longer evident in lateral leads) Code Status & VTE Plan Code Status Full VTE Prophylaxis Plan VTE Prophylaxis will be ordered: Yes PG Care Time/CCT Total # of Minutes Spent Total Time Spent with Patient: Total time spent is greater than 50% in coordination of care (as documented) at patient's floor/unit and/or counseling patient: Coding Level of Care Code 04176 INT INP/OBS CARE 3/75MIN Diagnoses Tachyarrhythmia R00.0 Acute heart failure with preserved ejection fraction I50.31 Obstructive sleep apnea G47.33 Restless leg syndrome G25.81
[2023-05-03] MEDS ORDERED: ACETAMINOPHEN 325 MG TAB PO PRN (20:17)
[2023-05-03] MEDS ORDERED: PRAMIPEXOLE DIHYDROCHLO 0.5 MG TAB PO PRN (20:17)
[2023-05-03] MEDS ORDERED: PRAMIPEXOLE DIHYDROCHLO 0.5 MG TAB PO SCH (21:00)
[2023-05-03] MEDS ORDERED: METOPROLOL SUCC 50MG EXT REL TAB PO SCH (21:00)
[2023-05-03] MEDS: hydrALAZINE TAB 50 MG TAB PO SCH (21:18)
[2023-05-03] MEDS: TOPIRAMATE 25 MG TAB PO SCH (21:18)
[2023-05-03] MEDS ORDERED: ENOXAPARIN INJ 40 MG/0.4 ML SYR SQ SCH (22:20)
[2023-05-03] MEDS ORDERED: ASPIRIN 81 MG ECTAB PO SCH (22:30)
--- OUTSIDE RECORDS SUMMARY | 2023-05-04 02:36 | External Medical Summary | Continuity of Care Document ---
Author Name Unknown Organization [facility] [address] [facility] Address [address] [place], [place] [id number] Care Team Providers Care Retail Administrative Assistant Name Role Phone Guillermo Stafford Primary Care Physician [phone] Encounter [id number] Date(s): 12/07/22 - 12/07/22 [facility] [address], [address] [place] [address] [phone] Encounter Diagnosis HTN (hypertension)(Discharge Diagnosis) - 12/07/22 S/P CABG x 3(Discharge Diagnosis) - 12/07/22 Atrial myxoma(Discharge Diagnosis) - 12/07/22 Hyperlipemia(Discharge Diagnosis) - 12/07/22 Discharge Disposition: Home or Self Care Attending Physician: DO Jaime Jason D Allergies, Adverse Reactions, Alerts Substance Reaction Severity Status lisinopril cough Active Zetia Cramping pain Active statins myalgias Active amLODIPine swelling Active Assessment and Plan Extracted from: Title:Cardiology Office Visit Note Author:DO Jaime Jason D Date:12/07/22 1.Hyperlipemia 2.S/P CABG x 3 3.Atrial myxoma 4.HTN (hypertension) He has now failed statin therapy as well as Zetia. He is interested in PCSK9 Inhibitors and I sent Repatha to his pharmacy. I discussed with him that usually will kick that back to us for prior authorization. He is a good candidate given his known coronary disease and failure of first and second line therapy. We discussed he could expect a 50% reduction in his LDL. I did put in a lipid profile and a complete metabolic profile 3 months from now. His blood pressure is very well controlled on his current medical regimen. We did discuss with regards to his coronary disease the idea of supply and demand with regards to symptoms. He has been quite stable and his LV function at least based on his stroke-volume and his carotid upstroke today appear preserved. We will need an echocardiogram in6 months Time to reassess not only his LV function but given his history of an atrial myxoma make sure there is no recurrence. We discussed the idea of aggressive medical therapy with regards to reducing his risk of progressive cardiovascular events. See him back in 6 months sooner if there are any issues. Immunizations Given and Recorded Vaccine Date Status Refusal Reason influenza virus vaccine, inactivated 02/09/22 Give n influenza virus vaccine, inactivated 02/02/20 Give n influenza virus vaccine, inactivated 02/21/18 Give n influenza virus vaccine, inactivated 03/25/17 Give n influenza virus vaccine, inactivated 04/06/16 Give n influenza virus vaccine, inactivated 04/18/15 Give n influenza virus vaccine, inactivated 02/03/14 Give n influenza virus vaccine, inactivated 03/03/13 Give n SARS-CoV-2 (COVID-19) mRNA BNT-162b2 vax 1 08/09/20 Recorded SARS-CoV-2 (COVID-19) mRNA BNT-162b2 vax 2 07/19/20 Recorded tetanus/diphtheria/pertuss, acel (Tdap) 3 01/29/20 Recorded pneumococcal 23-valent vaccine 4 03/22/18 Given tetanus toxoids-diphtheria, Td (Adult) 5 05/20/99 Recorded 1Result Comment: 2021-02-09: Historical information-source unspecified 2Result Comment: 2021-02-09: Historical information-source unspecified 3Result Comment: 2020-02-02: Historical information-source unspecified 4Early/Late Reason: Other : na 5Result Comment: 2020-01-16: Historical information-source unspecified Medications Advair Diskus 500 mcg-50 mcg Start: 06/06/22 16:53:00 EST, See Instructions, Disp# 60 each, Refills: 12, INHALE 1 PUFF BY MOUTH TWICE DAILY, Pharmacy: [id number] Start Date: 06/06/22 Status: Ordered Albuterol (Eqv-ProAir HFA) 90 mcg/inh inhalation aerosol Start: 08/14/22 11:56:00 EDT, 2 puff, inhaled, q4h, Disp# 18 g, Refills: 3, PRN: as needed for wheezing, Pharmacy: [facility] #[id number] Start Date: 08/14/22 Stop Date: 12/12/22 Status: Ordered aspirin 81 mg oral delayed release tablet Start: 05/11/21 11:01:00 EST, 1 tab, PO, Daily Start Date: 05/11/21 Status: Ordered candesartan 32 mg oral tablet Start: 06/28/22 15:43:00 EST, See Instructions, Disp# 90 tab, Refills: 3, TAKE 1 TABLET BY MOUTH EVERY DAY, Pharmacy: [facility] #[id number] Start Date: 06/28/22 Status: Ordered chlorthalidone 25 mg oral tablet Start: 09/27/22 16:53:00 EDT, See Instructions, Disp# 90 tab, Refills: 3, TAKE 1 TABLET BY MOUTH EVERY DAY, Pharmacy: [facility] #[id number] Start Date: 09/27/22 Status: Ordered CoQ10 Start: 07/08/18 10:31:00 EST, 200 mg =, PO, Daily Start Date: 07/08/18 Status: Ordered Feosol 325 mg (65 mg elemental iron) oral tablet Start: 03/19/18 16:13:00 EDT, 1 tab, PO, Daily Start Date: 03/19/18 Status: Ordered hydrALAZINE 100 mg oral tablet Start: 06/28/22 15:43:00 EST, See Instructions, Disp# 270 tab, Refills: 3, TAKE 1 TABLET BY MOUTH 3TIMES A DAY, Pharmacy: [facility] #[id number] Start Date: 06/28/22 Status: Ordered inhaler spacer Start: 08/14/22 11:57:00 EDT, See Instructions, Disp# 1 each, use with inhaler, Pharmacy: [facility] #[id number] Start Date: 08/14/22 Status: Ordered Potassium Chloride (Ypj-Soxi-Eky M20) 20 mEq oral tablet, extended release Start: 05/11/21 13:00:00 EST, See Instructions, Disp# 5 tab, Refills: 0, 40 mEq the first day and then 20 mEq the following days until empty, Pharmacy: [facility] #[id number] Start Date: 05/11/21 Status: Ordered pramipexole 0.5 mg oral tablet Start: 06/28/22 17:52:00 EST, See Instructions, Disp# 270 tab, Refills: 2, TAKE 1 TABLETS BY MOUTH AT BEDTIME, Pharmacy: [facility]/pharmacy #[id number] Start Date: 06/28/22 Status: Ordered Repatha 140 mg/mL subcutaneous solution Start: 12/07/22 9:59:00 EDT, 140 mg =, subQ, [id number], Disp# 2 each, Refills: 11, Pharmacy: [facility]/pharmacy #[id number] Start Date: 12/07/22 Status: Ordered Toprol-XL 50 mg oral tablet, extended release Start: 06/28/22 15:43:00 EST, 1 tab, PO, qhs, Disp# 90 tab, Refills: 3, Pharmacy: [facility]/pharmacy #[id number] Start Date: 06/28/22 Status: Ordered Ubrelvy 100 mg oral tablet Start: 08/07/21 14:06:00 EDT Start Date: 08/07/21 Status: Ordered Vitamin B Complex Start: 03/01/21 7:51:00 EDT Start Date: 03/01/21 Status: Ordered Mental Status 12/07/22 Barriers to Learning one year None evide nt Mandatory Health Literacy Documentation Yes Health Literacy Communication Barriers N ever Primary Language Venezuelan Problem List Condition Confirmation Course Effective Dates Status Health St atus Informant Arthritis Confirmed Active Atrial myxoma Confirmed Active Back pain 1 Confirmed Active Carpal tunnel syndrome Confirmed Active COPD Confirmed Active DDD (degenerative disc disease) 2 Confirmed Active Chronic GERD Confirmed Active 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 S/P CABG x 3 Confirmed Active HTN (hypertension) Confirmed Active Hyperlipemia Confirmed Active Insomnia Confirmed Active Multiple vessel coronary artery disease Confirmed Active NECK PAIN Confirmed Active RUBEN on CPAP Confirmed Active PVD (peripheral vascular disease) Confirmed Active RLS (restless legs syndrome) Confirmed Active 1with lumbar radiculopathy 2lumbar Diagnosis Diagnosis Type Effective Dates Health Status Clinical Service Informant Hyperlipemia Discharge Diagnosis 12/07/22 Atrial myxoma Discharge Diagnosis 12/07/22 HTN (hypertension) Discharge Diagnosis 12/07/22 S/P CABG x 3 Discharge Diagnosis 12/07/22 Procedures Procedure Date Related Diagnosis Body Site Status Chest X-ray 1 06/16/22 Completed Venous doppler ultrasonography 2 05/10/21 Completed Chest x-ray 3 01/29/[address] of abdomen and pelvis wit h contrast 4 01/29/[address] of cervical spine 5 01/29/[address] of chest with contrast 6 01/29/[address] of head without contrast 7 01/29/20 Completed Pelvis X-ray 8 01/29/20 Completed Fingers X-ray 9 10/16/[address] of chest without contrast 10 06/05/17 Completed Chest x-ray 11 05/02/17 Completed Colonoscopy 12 07/04/16 Completed X-ray of lumbar spine and pelvis 13 10/29/13 Completed Teeth 1989 Completed Cardiac catheterisation 58 Completed Colonoscopy Completed Facetectomy of vertebra 16 Completed Nasal Septal Repair Compl eted Neck 17 Completed Spinal fusion 18 Complete d T & A Completed 1impression: 1. No new focal lung consolidations to suggest a pneumonia 2. Stable cardiomegaly and mild pulmonary vascular congestion 2No evidence of deep venous thrombus. (LE bilateral) 31. Trace left pleural effusion. No pneumothorax 2. Cardiomegaly without evidence for pulmonary edema 41. Please refer to the same day chest CT 2. No acute traumatic process within the abdomen or pelvis 3. Additional findings as described above 5No acute cervical spine fracture or subluxation 61. No evidence for traumatic injury to the thoracic aorta 2. Acute nondisplaced fractures of the anterior left fifth, sixth and seventh ribs. No Pneumothorax. No additional acute taumatic findings within the chest 71. No acute intracranial abnormality 2. Opacified right mastoid air cells and right middle ear cavity. There is also trace left mastoid effusion 3. Mild posterior scalp swelling 8No acute facture within the pelvis or hips 9impression: Nondisplaced oblique fracture distal phalanx, left fith finger 10No lung nodules. Repeat 12 months. 11Cardiomegaly with no acute cardiopulmonary abnormality. 124mm polyp in the cecum. resected and retrieved, Non bleeding internal hemorrhoids 13Degenerative changes as described 14Wisdom teeth removal (3 teeth) 15history off see scanned report 16and foraminotomy L5-SI 17unspecified surgery [id number] Vital Signs Most recent to oldest [Reference Range]: 1 Patient Weight 123 kg (12/07/22 9:44 AM) Heart Rate 64 bpm (12/07/22 9:44 AM) Respiratory Rate 18 br/min (12/07/22 9:44 AM) Blood Pressure 118/64mmHg (12/07/22 9:44 AM) BP Location # 1 Left Arm (12/07/22 9:44 AM) Social History Social History Type Response Tobacco Former smoker, Cigar ettes, Stopped age 57 Years. 1, 2, 3 Smoking Status Never smoked cigaret tono Sex Male 1Currently only smoking 2 cigs per day 10/07 to 07/21 ppd 33/ ppd Cardiology Outpatient Note * DO Jaime Jason D: PERFORM Event Display: Cardiology Outpt Note Authored Date: [id number] Primary Care Provider DO Stafford Franklin J Chief Complaint F/U muscle and joint pain with Rosuvastatin he stooped it 6-7 weeks ago symptoms resolved denies resent chest pain, Palpitations, heart racing, dizziness or lightheadedness, no SOB - no edema noted. no resent ER visits History of Present Illness He notes that he stopped his low-dose Crestor on his own and his significant myalgias and arthralgias and even to the point of inability to walk has completely resolved. [place] walking in [place] he has a hunting cabin and has been active and feels well doing that. He has no chest pain or chest pressure. He denies any shortness of breath. He had no palpitations or fluttering or feeling his heart racing. If he is on his feet all day he will note some swelling in his left leg where his previous vein harvest site was. He denies any falls or syncopal episodes. He has some mild bruising on aspirin. He denies any significant dark stools or black stools. His appetite stable his weight is up slightly. Review of Systems PAST MEDICAL HISTORY: 1. Coronary artery disease status coronary bypass grafting x3, 03/2018. 2. Excision of a left atrial myxoma and patch replacement of the interatrial septum with bovine pericardium, 03/2018. 3. Large incision of the right atrium parallel to the AV groove extending to the right atrial appendage extended with an incision in the interatrial septum extended to the roof of the left atrium towards the aorta. 4. COPD with longstanding tobacco abuse. 5. History of back surgery in 2013. 6. Obstructive sleep apnea, tolerating CPAP. 7. Hypertension since the age of 33. 8. Hypercholesterolemia since the age of 33. 9. Obesity. 10. Echocardiogram, 05/2021: Mildly dilated left ventricle, normal LV function, EF 70% with type2 diastolic dysfunction and elevated left atrial pressures, normal RV function, severe left atrial enlargement, and normal pulmonary artery pressures. 11. Intolerance of amlodipine due to worsening lower extremity edema. Lisinopril was discontinued due to a cough, and statins and Zetia caused significant myalgias. 12. Frequent PACs. SOCIAL HISTORY: He used to smoke, having smoked a aasm-xny-a-half-a-day for 10 years. Overall, he smoked about 35 years. He is single. 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 HEENT: 2+ carotid upstrokes, no evidence of carotid bruits. Lungs: Clear to auscultation bilaterally, no rales, rhonchi or wheezing. Heart: Regular rate and rhythm with noectopyNo appreciable murmurs. Abdomen: Obese, nontender, nondistended; positive bowel sounds. Extremities:No clubbing, cyanosis or edema. Assessment/Plan 1.Hyperlipemia 2.S/P CABG x 3 3.Atrial myxoma 4.HTN (hypertension) He has now failed statin therapy as well as Zetia. He is interested in PCSK9 Inhibitors and I sent Soren to his pharmacy. I discussed with him that usually will kick that back to us for prior authorization. He is a good candidate given his known coronary disease and failure of first and second line therapy. We discussed he could expect a 50% reduction in his LDL. I did put in a lipid profile and a complete metabolic profile 3 months from now. His blood pressure is very well controlled on his current medical regimen. We did discuss with regards to his coronary disease the idea of supply and demand with regards to symptoms. He has been quite stable and his LV function at least based on his stroke-volume and his carotid upstroke today appear preserved. We will need an echocardiogram in6 months Time to reassess not only his LV function but given hishistory of an atrial myxoma make sure there is no recurrence. We discussed the idea of aggressive medical therapy with regards to reducing his risk of progressive cardiovascular events. See him back in 6 months sooner if there are any issues. Problem List/Past Medical History Ongoing Anxiety Arthritis Atrial myxoma Back pain Carpal tunnel syndrome Chronic GERD COPD DDD (degenerative disc disease) Diverticulosis Hereditary factor V deficiency disease HTN (hypertension) Hyperlipemia Insomnia Multiple vessel coronary artery disease NECK PAIN RUBEN on CPAP PVD (peripheral vascular disease) RLS (restless legs syndrome) S/P CABG x 3 Historical Acute low back pain Allergy Asthma exacerbation in COPD Hematuria Pruritic condition Shoulder Tobacco abuse Ulcer Weight disorder Procedure/Surgical History Chest X-ray (06/16/2022)Venous doppler ultrasonography (05/10/2021)Chest x-ray (01/29/2020)Pelvis X-ray (01/29/2020)CT of abdomen and pelvis with contrast (01/29/2020)CT of cervicalspine (01/29/2020)CT of chest with contrast (01/29/2020)CT of head without contrast (01/29/2020)Fingers X-ray (10/16/2018)Low dose CT of chest without contrast (06/05/2017)Chest x-ray (05/02/2017)Colonoscopy (07/04/2016)X-ray of lumbar spine and pelvis (10/29/2013)Teeth (1989) Cardiac catheterisation (1958) Neck Colonoscopy T & A Nasal Septal Repair Spinal fusionFacetectomy of vertebra Medications albuterol(Albuterol (Eqv-ProAir HFA) 90 mcg/inh inhalation aerosol), 2 puff, inhaled, q4h, PRN, 3 refills aspirin(aspirin 81 mg oral delayed release tablet), 81 mg= 1 tab, PO, Daily candesartan(candesartan 32 mg oral tablet), See Instructions, 3 refills chlorthalidone(chlorthalidone 25 mg oral tablet), See Instructions, 3 refills evolocumab(Repatha 140 mg/mL subcutaneous solution), 140 mg, subQ, [id number], 11 refills ferrous sulfate(Feosol 325 mg (65 mg elemental iron) oral tablet), 325 mg= 1 tab, PO, Daily fluticasone-salmeterol(Advair Diskus 500 mcg-50 mcg), See Instructions hydrALAZINE(hydrALAZINE 100 mg oral tablet), See Instructions, 3 refills inhalation accessory(inhaler spacer), See Instructions metoprolol(Toprol-XL 50 mg oral tablet, extended release), 50 mg= 1 tab, PO, qhs, 3 refills multivitamin(Vitamin B Complex) potassium chloride(Potassium Chloride (Ata-Eprm-Joc M20) 20 mEq oral tablet, extended release), SeeInstructions pramipexole(pramipexole 0.5 mg oral tablet), See Instructions, 2 refills ubiquinone(CoQ10), 200 mg, PO, Daily ubrogepant(Ubrelvy 100 mg oral tablet) Allergies ZetiaCramping pain amLODIPineswelling lisinoprilcough statinsmyalgias Social History Smoking Status Never smoked cigarettes Alcohol - No Risk - Comments: once in a blue jones will have a couple Tobacco - High Risk Use:Former smoker Type:Cigarettes Stopped at age:57Years - Comments: Currently only smoking 2 cigs per day 1/2 to 3/4 ppd 3/4 ppd Family History Angina: Mother. Heart attack: Mother and Father. Heart attack: Brother. High Blood Pressure: Mother and Father. Hyperthyroidism: Sister. Health Status Family Member(s) Electronic Signature on File CC: Guillermo Stafford DO [address] [address] Electronically Reviewed/Signed by: Guanako Jaime DO Author Signature Dt/Tm:12/07/2022 10:22 AM Barley Steeperbellperson [facility] [place] [place] [address] JDF Patient Care team information Care Team Personnel Name: DO Stafford Franklin J Position: Physician - Family Med Member Role: Primary Care Provider Address: Address: [address] [place] [address] [place] Care Team Related Persons Name: AZAEL FRITZ Address: home [address] [facility] [place] [id number] Name: CHINA FRITZ Address: home [address] [facility] [place] [phone] Name: LEOLA SMITH Address: home No Address Provided
--- OUTSIDE RECORDS SUMMARY | 2023-05-04 02:36 | External Medical Summary | Continuity of Care Document ---
Author Name Unknown Organization [facility] [address] [facility] Address [address] [place], [place] [id number] Care Team Providers Care Enologist Name Role Phone Guillermo Stafford Primary Care Physician [phone] [id number]): 12/07/22 - 12/07/22 [facility] [address], [address] [place] [address] [phone] Encounter Diagnosis HTN (hypertension)(Discharge Diagnosis) - 12/07/22 [...] 1 PUFF BY MOUTH TWICE DAILY, Pharmacy: [id number] Start Date: 06/06/22 Status: Ordered Albuterol (Eqv-ProAir HFA) 90 mcg/inh inhalation aerosol Start: 08/14/22 11:56:00 EDT, 2 puff, inhaled, q4h, Disp# 18 g, Refills: 3, PRN: as needed for wheezing, Pharmacy: [facility] #[id number] Start Date: 08/14/22 Stop Date: 12/12/22 Status: Ordered aspirin 81 mg oral delayed release tablet Start: 05/11/21 11:01:00 EST, 1 tab, PO, Daily Start Date: 05/11/21 Status: Ordered candesartan 32 mg oral tablet Start: 06/28/22 15:43:00 EST, See Instructions, Disp# 90 tab, Refills: 3, TAKE 1 TABLET BY MOUTH EVERY DAY, Pharmacy: [facility] #[id number] Start Date: 06/28/22 Status: Ordered chlorthalidone 25 mg oral tablet Start: 09/27/22 16:53:00 EDT, See Instructions, Disp# 90 tab, Refills: 3, TAKE 1 TABLET BY MOUTH EVERY DAY, Pharmacy: [facility] #[id number] Start Date: 09/27/22 Status: Ordered CoQ10 [...] TABLET BY MOUTH 3TIMES A DAY, Pharmacy: [facility] #[id number] Start Date: 06/28/22 Status: Ordered inhaler spacer Start: 08/14/22 11:57:00 EDT, See Instructions, Disp# 1 each, use with inhaler, Pharmacy: [facility] #[id number] Start Date: 08/14/22 Status: Ordered Potassium Chloride (Gjv-Reds-Bce M20) 20 mEq oral tablet, extended release Start: 05/11/21 13:00:00 EST, See Instructions, Disp# 5 tab, Refills: 0, 40 mEq the first day and then 20 mEq the following days until empty, Pharmacy: [facility] #[id number] Start Date: 05/11/21 Status: Ordered pramipexole 0.5 mg oral tablet Start: 06/28/22 17:52:00 EST, See Instructions, Disp# 270 tab, Refills: 2, TAKE 1 TABLETS BY MOUTH AT BEDTIME, Pharmacy: [facility]/pharmacy #[id number] Start Date: 06/28/22 Status: Ordered Repatha 140 mg/mL subcutaneous solution Start: 12/07/22 9:59:00 EDT, 140 mg =, subQ, [id number], Disp# 2 each, Refills: 11, Pharmacy: [facility]/pharmacy #[id number] Start Date: 12/07/22 Status: Ordered Toprol-XL 50 mg oral tablet, extended release Start: 06/28/22 15:43:00 EST, 1 tab, PO, qhs, Disp# 90 tab, Refills: 3, Pharmacy: [facility]/pharmacy #[id number] Start Date: 06/28/22 Status: Ordered Ubrelvy 100 mg oral tablet Start: 08/07/21 14:06:00 EDT Start Date: 08/07/21 Status: Ordered Vitamin B Complex Start: 03/01/21 7:51:00 EDT Start Date: 03/01/21 Status: Ordered Mental Status 12/07/22 Barriers to Learning one year None evide nt Mandatory Health Literacy Documentation Yes Health Literacy Communication Barriers N ever Primary Language Austrian Problem List Condition Confirmation Course Effective Dates [...] scanned report 16and foraminotomy L5-SI 17unspecified surgery [id number] Vital Signs Most recent to oldest [Reference [...] Event Display: Cardiology Outpt Note Authored Date: [id number] Primary Care Provider DO Stafford Franklin J [...] He used to smoke, having smoked a jyob-yiw-y-half-a-day for 10 years. Overall, he smoked about 35 years. He is single. 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 Physical Exam Vitals & [...] 140 mg/mL subcutaneous solution), 140 mg, subQ, [id number], 11 refills ferrous sulfate(Feosol 325 mg (65 mg elemental iron) oral tablet), 325 mg= 1 tab, PO, Daily fluticasone-salmeterol(Advair Diskus 500 mcg-50 mcg), See Instructions hydrALAZINE(hydrALAZINE 100 mg oral tablet), See Instructions, 3 refills inhalation accessory(inhaler spacer), See Instructions metoprolol(Toprol-XL 50 mg oral tablet, extended release), 50 mg= 1 tab, PO, qhs, 3 refills multivitamin(Vitamin B Complex) potassium chloride(Potassium Chloride (Auo-Hsks-Urz M20) 20 mEq oral tablet, extended release), [...] on File CC: Guillermo Stafford DO [address] [address] Electronically Reviewed/Signed by: Guanako Jaime DO Author Signature Dt/Tm:12/07/2022 10:22 AM 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 [place] [place] [address] JDF Patient Care team information Care Team Personnel Name: DO Stafford Franklin J Position: Physician - Family Med Member Role: Primary Care Provider Address: Address: [address] [place] [address] [place] Care Team Related Persons Name: AZAEL FRITZ Address: home [address] [facility] [place] [phone] Name: CHINA FRITZ Address: home [address] [facility] [place] [phone] Name: LEOLA SMITH Address: home No Address Provided
--- OUTSIDE RECORDS SUMMARY | 2023-05-04 02:36 | External Medical Summary | Continuity of Care Document ---
Author Name Unknown Organization [facility] 1850 [facility] [address] [place] [address] [phone] Care Team Providers Care Manager Document Name Role Phone Guillermo Stafford Primary Care Physician [phone] Encounter [facility] [id number] Date(s): 02/05/23 - 02/05/23 [facility] 0 [facility] 207 [facility] [address] [address] [place] [phone] Encounter Diagnosis Body mass index [BMI] 38.0-38.9, adult(Discharge Diagnosis) - 02/05/23 Well adult exam(Discharge Diagnosis) - 02/05/23 Hyperlipidemia(Discharge Diagnosis) - 02/05/23 Prostate cancer screening(Discharge Diagnosis) - 02/05/23 HTN (hypertension)(Discharge Diagnosis) - 02/05/23 IFG (impaired fasting glucose)(Discharge Diagnosis) - 02/05/23 Discharge Disposition: Home or Self Care Attending Physician: DO Stafford Franklin J Allergies, Adverse Reactions, Alerts Substance Reaction Severity Status lisinopril cough Active Zetia Cramping pain Active statins myalgias Active amLODIPine swelling Active Assessment and Plan Extracted from: Title:Well Adult Exam - Male * Author:DO Stafford Franklin J Date:02/05/23 Impression and Plan Diagnosis Well adult exam ([id number] Z00.00, Discharge, Medical). Plan: Well Adult Exam Cancer Screenings Colonoscopy - needs rescheduled - he will do this winter PSA today (last 2019 was 0.5) Metabolic Screenings Lipids and FBS ordered Immunizations/Preventive Flu shot today Discussed COVID and RSV vaccine at pharmacy Discussed Shingrix at pharmacy . Orders PowerOrders Laboratory: CMP Request (Order): Routine, 02/05/2023 09:19 EDT, Requested Timeframe First Available PSA Reflex to FREE PSA Request (Order): Routine, 02/05/2023 09:19 EDT, Requested Timeframe First Available Lipid Profile Request (Order): Routine, 02/05/2023 09:19 EDT, Requested Timeframe First Available, Fasting. PowerOrders Evaluation and Management: Well Adult Visit Est 40 to 64 yrs [id number] (Order): 02/05/2023 09:21 EDT, FAMILY MEDICINE, Well adult exam. PowerOrders Laboratory: Hgb A1C Request (Order): Routine, 02/05/2023 09:22 EDT, Requested Timeframe First Available. PowerOrders Patient Care Ambulatory: Follow Up Appointment Ambulatory (Order): In 1 Year, Appointment Type In Office, 40, Follow up With DO Stafford Franklin J. Immunizations Given and Recorded Vaccine Date Status Refusal Reason influenza virus vaccine, inactivated 02/05/23 Give n influenza virus vaccine, inactivated 02/09/22 Give n [...] 1 PUFF BY MOUTH TWICE DAILY, Pharmacy: [id number] Start Date: 06/06/22 Status: Ordered Albuterol (Eqv-ProAir HFA) 90 mcg/inh inhalation aerosol Start: 08/14/22 11:56:00 EDT, 2 puff, inhaled, q4h, Disp# 18 g, Refills: 3, PRN: as needed for wheezing, [id number] Start Date: 08/14/22 Stop Date: 12/12/22 Status: Ordered aspirin 81 mg oral delayed release tablet Start: 05/11/21 11:01:00 EST, 1 tab, PO, Daily Start Date: 05/11/21 Status: Ordered candesartan 32 mg oral tablet Start: 06/28/22 15:43:00 EST, See Instructions, Disp# 90 tab, Refills: 3, TAKE 1 TABLET BY MOUTH EVERY DAY, Pharmacy: [facility] #[id number] Start Date: 06/28/22 Status: Ordered chlorthalidone 25 mg oral tablet Start: 09/27/22 16:53:00 EDT, See Instructions, Disp# 90 tab, Refills: 3, TAKE 1 TABLET BY MOUTH EVERY DAY, [id number] Start Date: 09/27/22 Status: Ordered CoQ10 [...] TABLET BY MOUTH 3TIMES A DAY, Pharmacy: [id number] Start Date: 06/28/22 Status: Ordered inhaler spacer Start: 08/14/22 11:57:00 EDT, See Instructions, Disp# 1 each, use with inhaler, [id number] Start Date: 08/14/22 Status: Ordered Potassium Chloride (Ier-Jksa-Rzj M20) 20 mEq oral tablet, extended release Start: 05/11/21 13:00:00 EST, See Instructions, Disp# 5 tab, Refills: 0, 40 mEq the first day and then 20 mEq the following days until empty, [id number] Start Date: 05/11/21 Status: Ordered pramipexole 0.5 mg oral tablet Start: 06/28/22 17:52:00 EST, See Instructions, Disp# 270 tab, Refills: 2, TAKE 1 TABLETS BY MOUTH AT BEDTIME, [id number] Start Date: 06/28/22 Status: Ordered Repatha 140 mg/mL subcutaneous solution Start: 12/07/22 9:59:00 EDT, 140 mg =, subQ, [id number], Disp# 2 each, Refills: 11, [id number] Start Date: 12/07/22 Status: Ordered Toprol-XL 50 mg oral tablet, extended release Start: 06/28/22 15:43:00 EST, 1 tab, PO, qhs, Disp# 90 tab, Refills: 3, [id number] Start Date: 06/28/22 Status: Ordered Ubrelvy 100 mg oral tablet Start: 08/07/21 14:06:00 EDT Start Date: 08/07/21 Status: Ordered Vitamin B Complex Start: 03/01/21 7:51:00 EDT Start Date: 03/01/21 Status: Ordered Mental Status 02/05/23 Barriers to Learning one year None evide nt Mandatory Health Literacy Documentation Yes Health Literacy Communication Barriers N ever Primary Language Ugandan Problem List Condition Confirmation Course Effective Dates [...] Effective Dates Health Status Clinical Service Informant Body mass index [BMI] 38.0-38.9, adult Discharge Diagnosis 02/05/23 Non-Specified Prostate cancer screening Discharge Diagnosis 02/05/23 Non-Specified Hyperlipidemia Discharge Diagnosis 02/05/23 Non-Specified HTN (hypertension) Discharge Diagnosis 02/05/23 Non-Specified Well adult exam Discharge Diagnosis 02/05/23 Non-Specified IFG (impaired fasting glucose) Discharge Diagnosis 02/05/23 Non-Specified Procedures Procedure Date Related Diagnosis Body Site [...] scanned report 16and foraminotomy L5-SI 17unspecified surgery [id number] Results Laboratory List Name Date Comprehensive Metabolic Panel. (Comprehe nsive Metabolic Panel-ARLN) 02/05/23 Hemoglobin A1c w/eAG. (Hemoglobin A1c w/ eAG-ARLN) 02/05/23 Lipid Panel. (Lipid Panel-ARLN) 02/05/23 Most recent to oldest [Reference Range]: 1 Bilirubin, Total (QST) [0.2-1.2 mg/dL] 0 .7 mg/dL 1 (02/05/23 9:52 AM) BUN-Quest [7-25 mg/dL] 26 mg/dL 2 *HI* (02/05/23 9:52 AM) Creatinine-Quest [0.70-1.35 mg/dL] 0.96 mg/dL 3 (02/05/23 9:52 AM) BUN/Creat Ratio-Quest [6-22 (calc)] 27 ( calc) 4 *HI* (02/05/23 9:52 AM) Na-Quest [135-146 mmol/L] 139 mmol/L 5 (02/05/23 9:52 AM) K-Quest [3.5-5.3 mmol/L] 4.0 mmol/L 6 (02/05/23 9:52 AM) Cl-Quest [98-110 mmol/L] 100 mmol/L 7 (02/05/23 9:52 AM) CO2-Quest [20-32 mmol/L] 30 mmol/L 8 (02/05/23 9:52 AM) Ca-[facility] [8.6-10.3 mg/dL] 10.4 mg/dL 9 *HI* (02/05/23 9:52 AM) Globulin-Quest [1.9-3.7 g/dL (calc)] 2.9 g/dL (calc) 10 (02/05/23 9:52 AM) A/G Ratio-Quest [1.0-2.5 (calc)] 1.5 (ca lc) 11 (02/05/23 9:52 AM) Alkaline Phosphatase (ALP) [35-144 U/L] 126 U/L 12 (02/05/23 9:52 AM) Albumin, Serum [3.6-5.1 g/dL] 4.4 g/dL 1 3 (02/05/23 9:52 AM) eAG (mg/dL) 117 mg/dL 14 (02/05/23 9:52 AM) eAG (mmol/L) 6.5 mmol/L 15 (02/05/23 9:52 AM) PSA, Total (QST) [< OR = 4.0 ng/mL] 0.7 ng/mL 16 (02/05/23 9:55 AM) ALT [9-46 U/L] 20 U/L 17 (02/05/23 9:52 AM) HbA1c [<5.7 % of total Hgb] 5.7 % of tot al Hgb 18 *HI* (02/05/23 9:52 AM) eGFR-QST [> OR = 60 mL/min/1.73m2] 88 mL /min/1.73m2 19 (02/05/23 9:52 AM) Triglycerides-QST [<150 mg/dL] 186 mg/dL 20 *HI* (02/05/23 9:52 AM) Non HDL Chol-QST [<130 mg/dL (calc)] 86 mg/dL (calc) 21 (02/05/23 9:52 AM) HDL Chol-QST [> OR = 40 mg/dL] 54 mg/dL 22 (02/05/23 9:52 AM) Chol/HDLC Ratio-QST [<5.0 (calc)] 2.6 (c alc) 23 (02/05/23 9:52 AM) Cholesterol-QST [<200 mg/dL] 140 mg/dL 2 4 (02/05/23 9:52 AM) LDL Chol-QST 61 mg/dL (calc) 25 (02/05/23 9:52 AM) AST [10-35 U/L] 18 U/L 26 (02/05/23 9:52 AM) Glucose-Qst [65-99 mg/dL] 110 mg/dL 27 *HI* (02/05/23 9:52 AM) Total Protein-QST [6.1-8.1 g/dL] 7.3 g/d L 28 (02/05/23 9:52 AM) 1Result Comment: Specimen Received d/t: 02/06/2023 01:20:00 Lab test performed by: [facility] [address] [place] Nneka Ruvalcaba MD 2Result Comment: Specimen Received d/t: 02/06/2023 01:20:00 Lab test performed by: [facility] [address] [place] Nneka Ruvalcaba MD 3Result Comment: Specimen Received d/t: 02/06/2023 01:20:00 Lab test performed by: [facility] [address] [place] Nneka Ruvalcaba MD 4Result Comment: Specimen Received d/t: 02/06/2023 01:20:00 Lab test performed by: [facility] [address] [place] Nneka Ruvalcaba MD 5Result Comment: Specimen Received d/t: 02/06/2023 01:20:00 Lab test performed by: [facility] [address] [place] Nneka Ruvalcaba MD 6Result Comment: Specimen Received d/t: 02/06/2023 01:20:00 Lab test performed by: [facility] [address] [place] Nneka Ruvalcaba MD 7Result Comment: Specimen Received d/t: 02/06/2023 01:20:00 Lab test performed by: [facility] [address] [place] Nneka Ruvalcaba MD 8Result Comment: Specimen Received d/t: 02/06/2023 01:20:00 Lab test performed by: [facility] [address] [place] Nneka Ruvalcaba MD 9Result Comment: Specimen Received d/t: 02/06/2023 01:20:00 Lab test performed by: [facility] [address] [place] [address] Gus Ruvalcaba MD 10Result Comment: Specimen Received d/t: 02/06/2023 01:20:00 Lab test performed by: [facility] [address] [place] [address] Gus Ruvalcaba MD 11Result Comment: Specimen Received d/t: 02/06/2023 01:20:00 Lab test performed by: [facility] [address] [place] [address] Gus Ruvalcaba MD 12Result Comment: Specimen Received d/t: 02/06/2023 01:20:00 Lab test performed by: [facility] [address] [place] [address] Gus Ruvalcaba MD 13Result Comment: Specimen Received d/t: 02/06/2023 01:20:00 Lab test performed by: [facility] [address] [place] [address] Gus Ruvalcaba MD 14Result Comment: Specimen Received d/t: 02/06/2023 01:20:00 Lab test performed by: [facility] [address] [place] [address] Gus Ruvalcaba MD 15Result Comment: Specimen Received d/t: 02/06/2023 01:20:00 Lab test performed by: [facility] [address] [place] [address] Gus Ruvalcaba MD 16Result Comment: The Total PSA value from this assay system is standardized against the equimolar PSA standard. The test result will be approximately 20% higher when compared to the WHO-standardized Total PSA (Siemens assay). Comparison of serial PSA results should be interpreted with this fact in mind. PSA was performed using the Dandy Ngoc Immunoassay method. Values obtained from different assay methods cannot be used interchangeably. PSA levels, regardless of value, should not be interpreted as absolute evidence of the presence or absence of disease. Specimen Received d/t: 02/05/2023 22:26:00 Lab test performed by: [facility] [address] [place] [address] Gus Ruvalcaba MD 17Result Comment: Specimen Received d/t: 02/06/2023 01:20:00 Lab test performed by: [facility] [address] [place] [address] Gus Ruvalcaba MD 18Result Comment: For someone without known diabetes, a hemoglobin A1c value between 5.7% and 6.4% is consistent with prediabetes and should be confirmed with a follow-up test. For someone with known diabetes, a value <7% indicates that their diabetes is well controlled. A1c targets should be individualized based on duration of diabetes, age, comorbid conditions, and other considerations. This assay result is consistent with an increased risk of diabetes. Currently, no consensus exists regarding use of hemoglobin A1c for diagnosis of diabetes for children. Specimen Received d/t: 02/06/2023 01:20:00 Lab test performed by: [facility] [address] [place] [address] Gus Ruvalcaba MD 19Result Comment: Specimen Received d/t: 02/06/2023 01:20:00 Lab test performed by: [facility] [address] [place] [address] [place] [address] Gus Ruvalcaba MD 20Result Comment: Specimen Received d/t: 02/06/2023 01:20:00 [facility]: [facility] [address] [place] [address] Gus Ruvalcaba MD 21Result Comment: For patients with diabetes plus 1 major ASCVD risk factor, treating to a non-HDL-C goal of <100 mg/dL (LDL-C of <70 mg/dL) is considered a therapeutic option. Specimen Received d/t: 02/06/2023 01:20:00 Lab test performed by: [facility] [place] [address] Gus Ruvalcaba MD 22Result Comment: Specimen Received d/t: 02/06/2023 01:20:00 Lab test performed by: [facility] [address] [address]Maryann Ruvalcaba MD 23Result Comment: Specimen Received d/t: 02/06/2023 01:20:00 Lab test performed by: [facility] [place] [address] [place] [address]Maryann Ruvalcaba MD 24Result Comment: Specimen Received d/t: 02/06/2023 01:20:00 Lab test performed by: [facility] [place] [address] [place] [address]Maryann Ruvalcaba MD 25Result Comment: Reference range: <100 Desirable range <100 mg/dL for primary prevention; <70 mg/dL for patients with CHD or diabetic patients with > or = 2 CHD risk factors. LDL-C is now calculated using the Quan-Payne calculation, which is a validated novel method providing better accuracy than the Friedewald equation in the estimation of LDL-C. Quan SS et al. BJ. 2013;310(19): 0242-1876 (http://education.[place]/faq/ACR532) Specimen Received d/t: 02/06/2023 01:20:00 Lab test performed by: [facility] [place] [address]Maryann Ruvalcaba MD 26Result Comment: Specimen Received d/t: 02/06/2023 01:20:00 Lab test performed by: [facility] [place] [address] [place] [address]Maryann Ruvalcaba MD 27Result Comment: Fasting reference interval For someone without known diabetes, a glucose value between 100 and 125 mg/dL is consistent with prediabetes and should be confirmed with a follow-up test. Specimen Received d/t: 02/06/2023 01:20:00 Lab test performed by: [facility] [address] [place] [address] Gus Ruvalcaba MD 28Result Comment: Specimen Received d/t: 02/06/2023 01:20:00 Lab test performed by: [facility] [address] [place] [address] Gus Ruvalcaba MD Vital Signs Most recent to oldest [Reference Range]: 1 Height 178 cm (02/05/23 8:44 AM) Patient Weight 121.9 kg (02/05/23 8:44 AM) Body Mass Index 38.47 kg/m2 (02/05/23 8:44 AM) Temperature [36.5-37.9 DegC] 36.8 DegC (02/05/23 8:44 AM) Heart Rate 62 bpm (02/05/23 8:44 AM) Respiratory Rate 18 br/min (02/05/23 8:44 AM) Blood Pressure 122/70mmHg (02/05/23 8:44 AM) Cuff Pulse Pressure 52 mmHg (02/05/23 8:44 AM) Social History Social History Type Response Tobacco Former smoker, Cigar ettes, Stopped age 57 Years. 1, 2, 3 Smoking Status Former Smoker, quit > 1 yr Sex Male 1Currently only smoking 2 cigs per day 10/07 to 07/21 ppd 33/4 ppd Outpatient Note * DO Stafford Franklin J: PERFORM, SIGN, VERIFY Event Display: .Outpt Note Authored Date: [id number] Patient: KIMBERLY FRITZ Age: 62 years Sex: Male : 1960 Associated Diagnoses: None Author: DO Stafford Franklin J Visit Information Visit type: Annual exam. Chief Complaint 02/05/2023 08:43 EDT CPE Well Adult History Here for annual exam. Is now on Repatha (thru program has gotten it for $5/month) - niece is givinghim the SC injection. Muscle aches since his last trial of rosuvastatin are resolving. Down about 12 pounds since the beginning of the year. Review of Systems Constitutional: No fever, No chills. Eye: Negative. Ear/Nose/Mouth/Throat: Negative. Respiratory: No shortness of breath, No cough. Cardiovascular: Negative. Health Status Allergies: Allergic Reactions (Selected) Severity Not Documented AmLODIPine- Swelling. Lisinopril- Cough. Statins- Myalgias. Zetia- Cramping pain.. Current medications: (Selected) Prescriptions Prescribed Advair Diskus 500 mcg-50 mcg: See Instructions, INHALE 1 PUFF BY MOUTH TWICE DAILY, 60 each, 12 Refill(s) Albuterol (Eqv-ProAir HFA) 90 mcg/inh inhalation aerosol: 2 puff, inhaled, q4h, for 30 day, PRN: asneeded for wheezing, 18 g, 3 Refill(s) Potassium Chloride (Ihz-Eiwy-Too M20) 20 mEq oral tablet, extended release: See Instructions, 40 mEq the first day and then 20 mEq the following days until empty, 5 tab, 0 Refill(s) Repatha 140 mg/mL subcutaneous solution: 140 mg, subQ, [id number], 2 each, 11 Refill(s) Toprol-XL 50 mg oral tablet, extended release: 1 tab, PO, qhs, 90 tab, 3 Refill(s) candesartan 32 mg oral tablet: See Instructions, TAKE 1 TABLET BY MOUTH EVERY DAY, 90 tab, 3 Refill(s) chlorthalidone 25 mg oral tablet: See Instructions, TAKE 1 TABLET BY MOUTH EVERY DAY, 90 tab, 3 Refill(s) hydrALAZINE 100 mg oral tablet: See Instructions, TAKE 1 TABLET BY MOUTH 3 TIMES A DAY, 270 tab, 3 Refill(s) inhaler spacer: See Instructions, use with inhaler, 1 each pramipexole 0.5 mg oral tablet: See Instructions, TAKE 1 TABLETS BY MOUTH AT BEDTIME, 270 tab, 2 Refill(s) Documented Medications Documented CoQ10: 200 mg, PO, Daily Feosol 325 mg (65 mg elemental iron) oral tablet: 1 tab, PO, Daily Ubrelvy 100 mg oral tablet: Vitamin B Complex: aspirin 81 mg oral delayed release tablet: 1 tab, PO, Daily. 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 / Confirmed S/P CABG x 3 / SNOMED CT 6664814325 / Confirmed HTN (hypertension) / ICD-9-CM 401.9 / Confirmed Hyperlipemia / SNOMED CT [id number] / Confirmed Insomnia / ICD-9-CM 780.52 / Confirmed Multiple vessel coronary artery disease / SNOMED CT 2347741287 / Confirmed NECK PAIN / ICD-9-CM 723.1 / Confirmed RUBEN on CPAP / SNOMED CT 568111260 / Confirmed PVD (peripheral vascular disease) / ICD-9-CM 443.9 / Confirmed RLS (restless legs syndrome) / ICD-9-CM 333.94 / Confirmed All Problems (Selected) Arthritis / SNOMED CT 4465924 / Confirmed Atrial myxoma / SNOMED CT 577529856 / Confirmed Back pain / SNOMED CT 895415277 / Confirmed Carpal tunnel syndrome / SNOMED CT 40355595 / Confirmed COPD / ICD-9-CM 496 / Confirmed DDD (degenerative disc disease) / SNOMED CT 154331666 / Confirmed Chronic GERD / SNOMED CT 748332818 / Confirmed 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 Histories Family History: Heart attack Brother Comments: 02/23/2018 23:55 EDT - Sruthi Allen in his 40s, he was non smoker Hyperthyroidism Sister Angina Mother Heart attack Father Mother High Blood Pressure Mother Father . Procedure history: Chest X-ray (SNOMED CT 6200202974) on 06/16/2022 at 62 Years. Comments: 06/20/2022 10:07 KIMBER Franco LPN, Paul impression: 1. No new focal lung consolidations to suggest a pneumonia 2. Stable cardiomegaly and mild pulmonary vascular congestion Venous doppler ultrasonography (SNOMED CT 2569316359) on 05/10/2021 at 61 Years. Comments: 05/10/2021 14:35 KIMBER Nicole LPN, Vanessa T No evidence of deep venous thrombus. (LE bilateral) CT of head without contrast (SNOMED CT 8247845175) on 01/29/2020 at 59 Years. Comments: 02/02/2020 13:56 GAETANO Leblanc LPN, Lindsey 1. No acute intracranial abnormality 2. Opacified right mastoid air cells and right middle ear cavity. There is also trace left mastoid effusion 3. Mild posterior scalp swelling CT of chest with contrast (SNOMED CT 0696804370) on 01/29/2020 at 59 Years. Comments: 02/02/2020 14:03 GAETANO Leblanc LPN, Lindsey 1. No evidence for traumatic injury to the thoracic aorta 2. Acute nondisplaced fractures of the anterior left fifth, sixth and seventh ribs. No Pneumothorax. No additional acute taumatic findings within the chest CT of cervical spine (SNOMED CT 435796304) on 01/29/2020 at 59 Years. Comments: 02/02/2020 14:04 GAETANO Leblanc LPN, Lindsey No acute cervical spine fracture or subluxation CT of abdomen and pelvis with contrast (SNOMED CT 4136557945) on 01/29/2020 at 59 Years. Comments: 02/02/2020 14:06 GAETANO Leblanc LPN, Lindsey 1. Please refer to the same day chest CT 2. No acute traumatic process within the abdomen or pelvis 3. Additional findings as described above Pelvis X-ray (SNOMED CT 618143874) on 01/29/2020 at 59 Years. Comments: 02/02/2020 14:07 GAETANO Leblanc LPN, Lindsey No acute facture within the pelvis or hips Chest x-ray (SNOMED CT 2555658610) on 01/29/2020 at 59 Years. Comments: 02/02/2020 14:08 EDT - KVNG Leblanc Lindsey 1. Trace left pleural effusion. No pneumothorax 2. Cardiomegaly without evidence for pulmonary edema Fingers X-ray (SNOMED CT 491407878) on 10/16/2018 at 58 Years. Comments: 10/17/2018 14:58 EDT - KVNG Franco Paul impression: Nondisplaced oblique fracture distal phalanx, left fith finger Low dose CT of chest without contrast (SNOMED CT 7528298314) on 06/05/2017 at 57 Years. Comments: 06/06/2017 10:15 KIMBER - KVNG Peralta Boyd No lung nodules. Repeat 12 months. Chest x-ray (SNOMED CT 2973891631) on 05/02/2017 at 57 Years. Comments: 05/02/2017 13:57 KIMBER - KVNG Nicole Vanessa T Cardiomegaly with no acute cardiopulmonary abnormality. Colonoscopy (SNOMED CT 483192854) performed by MD Hernandez Joel B on 07/04/2016 at 56 Years. Comments: 07/04/2016 15:18 EST - TAYE Nunez Donna 4mm polyp in the cecum. resected and retrieved, Non bleeding internal hemorrhoids X-ray of lumbar spine and pelvis (SNOMED CT 6616270350) performed by DO Stafford Franklin J on 10/29/2013 at 53 Years. Comments: 10/30/2013 13:35 EDT - Stephenie Wolfe Degenerative changes as described Teeth (SNOMED CT 9595033618) in 1989 at 30 Years. Comments: 11/05/2012 13:02 EDT - Greta Jarrell Shiro teeth removal (3 teeth) Cardiac catheterisation (SNOMED CT 655086260) on 1960. Comments: 04/01/2018 09:27 KIMBER Franco LPN, Paul history off see scanned report Nasal Septal Repair. T & A. Colonoscopy. Neck (SNOMED CT 58892252). Comments: 11/05/2013 14:08 NASIRT - KVNG Villalta Jacqueline R unspecified surgery Facetectomy of vertebra (SNOMED CT 4556200). Comments: 01/20/2014 13:37 EDT - Aspen Nunez and foraminotomy L5-SI Spinal fusion (SNOMED CT 25015533). Comments: 01/20/2014 13:38 EDT - Aspen Nunez L5-S1. Social History Social & Psychosocial Habits Alcohol 02/21/2018 Risk Assessment: No Risk Comment: once in a blue jones will have a couple - 02/21/2018 07:54 - KVNG Peralta, Prajapati Tobacco 10/19/2014 Risk Assessment: High Risk 09/15/2018 Use: Former smoker Type: Cigarettes Stopped at age: 57 Years Comment: 07/21 ppd - 10/19/2014 09:29 - [facility] De Guzman Christal; 05/21 to 07/21 ppd - 06/30/2015 14:43 - [facility] De Guzman Christal; Currently only smoking 2 cigs per day - 08/29/2015 08:32 - [facility] De Guzman Christal . Physical Examination Vital Signs 02/05/2023 08:44 EDT Temperature 36.8 DegC Temperature Route Oral Heart Rate 62 bpm Respiratory Rate 18 br/min Systolic Blood Pressure 122 mmHg Diastolic Blood Pressure 70 mmHg Cuff Pulse Pressure 52 mmHg SpO2 95 % Measurements from flowsheet : Measurements 02/05/2023 08:47 EDT Osteoporosis Screening Tool 11.58 02/05/2023 08:44 EDT Height 178 cm Patient Weight 121.9 kg Weight 121.900 kg Weight Method Standing Scale Body Mass Index 38.47 kg/m2 Body Surface Area 2.46 m2 [place] Body Weight 73.2 kg Height/Weight Refused Height/Weight Taken General: Alert and oriented. Eye: Pupils are equal, round and reactive to light, Extraocular movements are intact, Normal conjunctiva. HENT: Normocephalic, Normal hearing. Neck: Supple, Non-tender. Respiratory: Lungs are clear to auscultation, Respirations are non-labored. Cardiovascular: Normal rate, Regular rhythm. Musculoskeletal Normal range of motion. Integumentary: Warm, Dry, [place]. Neurologic: Alert, Oriented, Normal sensory. Psychiatric: Cooperative, Appropriate mood & affect. Impression and Plan Diagnosis Well adult exam ([id number] Z00.00, Discharge, Medical). Plan: Well Adult Exam Cancer Screenings Colonoscopy - needs rescheduled - he will do this winter PSA today (last 2020 was 0.5) Metabolic Screenings Lipids and FBS ordered Immunizations/Preventive Flu shot today Discussed COVID and RSV vaccine at pharmacy Discussed Shingrix at pharmacy . Orders PowerOrders Laboratory: CMP Request (Order): Routine, 02/05/2023 09:19 EDT, Requested Timeframe First Available PSA Reflex to FREE PSA Request (Order): Routine, 02/05/2023 09:19 EDT, Requested Timeframe First Available Lipid Profile Request (Order): Routine, 02/05/2023 09:19 EDT, Requested Timeframe First Available, Fasting. PowerOrders Evaluation and Management: Well Adult Visit Est 40 to 64 yrs [id number] (Order): 02/05/2023 09:21 EDT, FAMILY MEDICINE, Well adult exam. PowerOrders Laboratory: Hgb A1C Request (Order): Routine, 02/05/2023 09:22 EDT, Requested Timeframe First Available. PowerOrders Patient Care Ambulatory: Follow Up Appointment Ambulatory (Order): In 1 Year, Appointment Type In Office, 40, Follow up WithDO Stafford Franklin J. Electronic Signature on File Electronically Reviewed/Signed by: Guillermo Stafford DO Author Signature Dt/Tm:02/05/2023 09:29 AM Department of Family Medicine [facility] Patient Care team information Care Team Personnel Name: DO Stafford Franklin J Position: Physician - Family Med Member Role: Primary Care Provider Address: Address: [address] [place] [id number] Care Team Related Persons Name: AZAEL FRITZ Address: home [address] [facility] [place] [id number] Name: CHINA FRITZ Address: home [address] [place], [place] [id number] Name: LEOLA SMITH Address: home No Address Provided
--- NOTE | 2023-05-04 06:47 | Hospitalist Progress Note ---
Date of Service May 04, 2023 Assessment & Plan (1) Tachyarrhythmia: Plan: Tachyarrhythmia Presentation suspicious for ventricular arrhythmia. Patient back in NSR. No recurrence of symptoms. Troponin peaked. Likely elevated in the setting of increased demand. ECHO ordered. Cards consulted - appreciate recs. f/u cards recs f/u ECHO Acute on Chronic HFpEF Moderate to severe mitral regurgitation on previous echocardiogram in 2020. Patient reportedly fluid overloaded for the last few days. Is not on home Lasix. Repeat TTE ordered. Hypervolemia may have triggered the arrhythmia. Lasix 40 mg IV QAM for now. May benefit from outpatient diuretic use PRN for weight changes. 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 Per chart review it sounds like it was a lengthy procedure with bilateral atrial involvement requiring a bovine pericardial patch. Follows with Dr. Jaime. HTN Patient on chlorthalidone, hydralazine, candesartan, and metoprolol. BP well controlled on an outpatient basis. Follows with Dr. Jaime. Would defer to outpatient provider on medication changes. RUBEN Continue home CPAP Restless Leg Syndrome Continue home pramipexole VTE Prophylaxis: Lovenox 40mg SQ daily Diet: heart healthy Disposition: admit to PCU Code status: full (2) Acute heart failure with preserved ejection fraction: (3) Obstructive sleep apnea: (4) Restless leg syndrome: Admission and Anticipated Discharge Date Admission Date: May 03, 2023 Subjective Patient seen at bedside this AM. No complaints. No further heart racing/palpitations. Overall feeling well. No CP or SOB. No pain. Review of Systems 2 Review of Systems: See HPI Physical Exam 2 Physical Exam: Gen: well appearing gentleman in NAD HEENT: AT NC MMM CV: RRR no m/r/g clinically well perfused, radial pulses 2+ symmetric Resp: CTAB no wheezing, diminished breath sounds diffusely likely due to body habitus Abd: soft, non-tender, non-distended MSK: no obvious deformities Skin: no rashes or bruising Neuro: alert and oriented Psych: appropriate mood and affect Results & Data Results & Data Laboratory Results 05/04/23 06:26 05/04/23 06:26 Diagnostic Findings Chest X-Ray 05/03/23 15:06 FINDINGS: No pneumothorax. No pleural effusions. There are low lung volumes. The heart remains mildly enlarged. There are poststernotomy changes and cervical spinal fusion hardware. Mild interstitial/vascular thickening which has progressed. This may represent mild congestive change. No new focal lung consolidations identified. IMPRESSION: Cardiomegaly and mild pulmonary vascular congestion. This has progressed in the interval.
[2023-05-04 06:54] LABS: Basophils # (auto) 0.09 K/uL (0.00-0.20); Eosinophils # (auto) 0.54 K/uL (0.00-0.50); Eosinophils % (auto) 6.3 %; Hematocrit (blood only) 40.9 % (42.0-52.0); Hemoglobin 13.8 g/dl (14.0-18.0); Immature Granulocytes # (auto) 0.02 K/uL (0.01-0.20); Immature Granulocytes % (auto) 0.2 %; Lymphocytes % (auto) 18.6 %; Mean Corpuscular Hemoglobin 30.1 pg (25.0-34.0); Mean Corpuscular Hgb Conc 33.7 g/dL (32.0-36.0); Mean Corpuscular Volume 89.1 fL (80.0-100.0); Monocytes % (auto) 9.3 %; Neutrophils # (auto) 5.56 K/uL (1.40-6.50); Neutrophils % (auto) 64.6 %; Platelet Count 155 K/uL (130-400); RDW Coefficient of Variation 14.7 % (11.5-14.5); RDW Standard Deviation 47.7 fL (36.4-46.3); Red Blood Count 4.59 M/uL (4.70-6.10); White Blood Count 8.61 K/ul (4.8-10.8)
[2023-05-04 07:35] LABS: Albumin Globulin Ratio 1.6 (0.9-2); Albumin Level 3.7 gm/dl (3.4-5.0); BUN Creatinine Ratio 22.6 (10-20); Bilirubin,Total 0.6 mg/dl (0.2-1.0); Calcium 8.8 mg/dl (8.6-10.3); Creatinine Clr Calc Pharmacy 105.5 ml/min; Est GFR (African American) 99.5 ml/min; Est GFR (Non-African American) 85.8 ml/min; Globulin 2.3 gm/dl (2.5-4.0); Potassium 3.4 mmol/L (3.5-5.1)
[2023-05-04] MEDS ORDERED: POTASSIUM CHLORIDE CRTAB 20 MEQ TABCR PO STA (08:01)
--- NOTE | 2023-05-04 08:12 | Electrocardiogram Report ---
Test Reason : Blood Pressure : / mmHG Vent. Rate : 088 BPM Atrial Rate : 088 BPM P-R Int : 212 ms QRS Dur : 088 ms QT Int : 352 ms P-R-T Axes : 066 029 266 degrees QTc Int : 425 ms Poor data quality, interpretation may be adversely affected Sinus rhythm with 1st degree A-V block Nonspecific ST and T wave abnormality Abnormal ECG When compared with ECG of 16-JUN-2022 13:16, T wave inversion no longer evident in Lateral leads Confirmed by Yahir Rizzo ([id number]) on 05/04/2023 8:12:26 AM Referred By: Confirmed By:Yahir Rizzo
[2023-05-04] MEDS: TOPIRAMATE 25 MG TAB PO SCH (08:35)
[2023-05-04] MEDS: hydrALAZINE TAB 50 MG TAB PO SCH (08:36)
[2023-05-04] MEDS: POTASSIUM CHLORIDE / WTR 10 MEQ/100 ML PLCT IV SCH ×2 (08:37→10:28)
[2023-05-04] MEDS ORDERED: LOSARTAN POTASSIUM 50 MG TAB PO SCH (09:00)
[2023-05-04] MEDS ORDERED: CHLORTHALIDONE 25 MG TAB PO SCH (09:00)
[2023-05-04] MEDS ORDERED: ROSUVASTATIN CALCIUM 5 MG TAB PO SCH (09:00)
[2023-05-04] MEDS ORDERED: FUROSEMIDE 40 MG/4 ML VIAL IV SCH (09:00)
[2023-05-04] MEDS ORDERED: FLUTICASONE/VILANTEROL 100/25MCG 14 PUFFS/INHALER INH SCH (09:00)
--- NOTE | 2023-05-04 11:16 | XCELERA ---
[id number] \\[id number]
--- NOTE | 2023-05-04 12:34 | Cardiology Consultation ---
Date of Consultation May 04, 2023 Assessment & Plan (1) Tachyarrhythmia: (2) Acute heart failure with preserved ejection fraction: (3) Near syncope: (4) Hypertension: (5) CAD (coronary artery disease): (6) History of coronary artery bypass graft: (7) Elevated troponin: Plan ASSESSMENT/PLAN: 1. Tachyarrhythmia: Presentation consistent with tachyarrhythmia but unfortunately, the rhythm was not captured before symptoms spontaneously resolved. We discussed possible etiologies such as SVT or ventricular tachycardia. He tolerated the rhythm well for the first 40 minutes or so. He would like to go home. No arrhythmia here. Recommend outpatient event monitor and if unremarkable, consider loop recorder. Also suggested Flimper armaan, which his friend just ordered for him. Unclear if he will have repeat episodes. Resting bradycardia on metoprolol succinate 50 mg daily and therefore beta- simon was not further titrated. Depending on arrhythmia, if it returns, may require ablation or antiarrhythmic therapy. Also discussed potential for EP study, especially if unable to capture the rhythm and if he has significant recurrence. 2. Elevated troponin: Likely due to sustained arrhythmia. Did not present with acute coronary syndrome. 3. Acute heart failure with preserved EF: Based on his description, he appeared hypervolemic which improved with diuresis. Recommend Lasix 20 mg once daily as needed for weight gain, edema, or shortness of breath on discharge. Otherwise, he is on chlorthalidone. Recommended low-sodium diet, less than 2000 mg daily. Daily weights. Close follow-up with his primary collections clerk. Could have been exacerbated by his arrhythmia. 4. CAD s/p CABG x 3: No angina. Continue aspirin 81 mg daily. Continue beta- simon and ARB. Continue statin therapy and PCSK9 inhibitor. 5. Hypertension: Blood pressure has been elevated. He reports mild hypertension at home as well. Titrate medications as appropriate. 6. Disposition: Follow-up closely with his primary collections clerk, Dr. Jaime. Patient care discussed with Dr. Solomon of the primary hospitalist service. Thank you for allowing me to participate in the care of your patient. Please call for any other questions or concerns. Sincerely, Mario Newman M.D. History of Present Illness Reason for Consultation: Suspected tachyarrhythmia Requesting Physician: Dr. Diamond Attending Physician: Zoe Solomon MD History of Present Illness Mr. 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 His primary collections clerk is Dr. Jaime through [facility]. He was admitted on 05/03/2023 after experiencing palpitations. The acutely occurred on 05/03/2023 at 1415 while walking down 3 steps. He felt a fluttering and racing sensation but otherwise felt reasonably well without chest pain or shortness of breath. He drove over to his friends, approximately 500 yards away who happened to be a retired hvac r tech. He checked his vitals and found his blood pressure to be approximately 200/120 mmHg and heart rate in the 170s. He then proceeded to drive him to the emergency department. While riding as a passenger in the vehicle, he felt better but still had some palpitations. Then while in the emergency department, he reports being awake and able to understand those around him, but was unable to verbalize. He had near syncope but did not lose consciousness. He then abruptly felt much better. Unfortunately, by the time he was able to have an ECG or telemetry, palpitations had resolved. He estimates the total event being 45 minutes in duration. He has not had any previous palpitations and none since. He has been on telemetry while here without arrhythmia. For the past week or so he has had bilateral lower extremity swelling. He chronically has left lower extremity swelling which has been attributed to vein harvest. He states that his legs are already better and he received intravenous Lasix in the emergency department. He also had orthopnea 2 days prior. He feels back to baseline. He denies syncope, shortness of breath, chest pain, melena, hematochezia, hematuria, or other bleeding. He has not taken any recent supplements or drugs. He does not consume large amounts of sodium at home. He very much would like to go home. Review of systems: As above. Review of systems otherwise negative/unremarkable. Family history: Father at 42 with PR. Social history: Currently smokes 0.5 pack/day but had smoked up to 1 pack/day in the past. Occasional alcohol. No drugs. . Lives alone. Has 1 daughter (Lea). 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 His daughter was present at the bedside. Allergies Allergy/AdvReac Type Severity Reaction Status Date / Time No Known Allergies Allergy Verified 05/03/23 15:37 Home Medications Medication Instructions Recorded Confirmed Type candesartan 32 mg tablet 32 mg PO DAILY 01/13/19 05/03/23 History hydralazine 100 mg tablet 100 mg PO TID 01/13/19 05/03/23 History chlorthalidone 25 mg tablet 25 mg PO DAILY 02/07/21 05/03/23 History fluticasone 500 mcg-salmeterol 50 1 inh inhalation BID 02/07/21 05/03/23 History mcg/dose blistr powdr for inhalation (Advair Diskus) metoprolol succinate 50 mg 50 mg PO HS 06/16/22 05/03/23 History tablet,extended release 24 hr rosuvastatin 5 mg tablet 5 mg PO DAILY 06/16/22 05/03/23 History topiramate 25 mg tablet 25 mg PO BID #60 tabs 09/27/22 05/03/23 Rx albuterol sulfate 90 mcg/actuation 2 puff inhalation Q4H PRN Wheezing 05/03/23 05/03/23 History aerosol inhaler aspirin 81 mg tablet 81 mg PO HS 05/03/23 05/03/23 History evolocumab 140 mg/mL subcutaneous 140 mg subcut .Q2WK 05/03/23 05/03/23 History syringe (Repatha Syringe) pramipexole 0.5 mg tablet 0.5 mg PO QPM PRN NEEDED PER PT 05/03/23 05/03/23 History pramipexole 1 mg tablet 1 mg PO HS 05/03/23 05/03/23 History furosemide 20 mg tablet (Lasix) 20 mg PO DAILY PRN edema #30 tabs 05/04/23 Rx Patient History Medical History CAD (coronary artery disease) Accidental aspirin overdose Cluster headache Degenerative disc disease Dyslipidemia Hypertension Obstructive sleep apnea Lumbar stenosis with neurogenic claudication (01/15/14) Surgical History (Updated 05/04/23 @ 13:56 by Tomasz Newman MD) History of laminectomy History of coronary artery bypass graft History of cardiac cath Family History Father Myocardial infarction Mother Heart disease Social History Smoking Status: Current every day smoker Tobacco Type: Cigarettes Cigarettes Per Day: 10; Second Hand Exposure: No; Do You Dip or Chew Tobacco: No; Tobacco Cessation Education Requested by Patient: No Hx Alcohol Use: Yes Alcohol type: hard liquor Hx Substance Use: No Preferred Language: Spanish Communication Ability: Effective Hearing Ability: Normal Site Lead Required: No Beliefs That Will Affect Care: None marital status: Single Current Living Situation: Alone current occupation: Retired Other Information That Helps Us Care for You: No Feels Safe at Home: Yes Safety Concerns: Feels Safe At This Time Assistive Devices: Glasses Physical Exam Physical Exam: Gen.: No acute distress. Alert and oriented. HEENT: Anicteric sclera. Neck: Thick neck but no appreciable JVD. No bruits. Normal carotid upstrokes bilaterally. Cardiac: No ventricular heave. Regular. Normal S1-S2. No murmurs, rubs, or gallops. Pulmonary: Decreased breath sounds, but otherwise clear to auscultation bilaterally without wheezes, rales, or rhonchi. Abdomen: Soft, nontender, nondistended, with normoactive bowel sounds. No bruits noted. Extremities: 2+ radial pulses bilaterally. 2+ posterior tibialis pulses bilaterally. Bilateral lower extremity edema. s/p left lower extremity SVG harvest. No cyanosis. Psychiatric: Affect appears appropriate. Results & Data Vital Signs (Past 12 Hours) Vital Signs Temp Pulse Pulse Resp BP BP Pulse Ox 05/04/23 10:47 36.6 C 61 20 175/90 H 95 05/04/23 07:25 36.5 C 59 L 19 176/84 H 94 05/04/23 03:00 36.4 C L 57 L 16 141/65 H 91 05/04/23 00:53 61 16 92 O2 Del Method 05/04/23 10:47 Room Air 05/04/23 07:25 Room Air 05/04/23 03:00 Room Air 05/04/23 00:53 Intake & Output 05/02/23 05/03/23 05/04/23 05/05/23 06:59 06:59 06:59 06:59 Intake Total 360 / 360 200 / 200 Output Total 2450 / 2450 Balance -2089 / -2089 200 / 200 Weight 270 lb 4.799 oz Laboratory Results Laboratory Results - last 24 hr 05/03/23 05/03/23 05/03/23 14:57 15:03 15:10 WBC 9.29 RBC 5.28 Hgb 15.8 POC Hgb 16.3 Hct 47.7 POC Hct 48 MCV 90.3 MCH 29.9 MCHC 33.1 RDW Std Deviation 48.2 H RDW Coeff of Patrice 14.6 H Plt Count 175 MPV 11.2 Immature Gran % (Auto) 0.4 Neut % (Auto) 65.8 Lymph % (Auto) 18.4 Knott % (Auto) 7.5 Eos % (Auto) 6.7 Baso % (Auto) 1.2 Neut # (Auto) 6.11 Lymph # (Auto) 1.71 Knott # (Auto) 0.70 H Eos # (Auto) 0.62 H Baso # (Auto) 0.11 Immature Gran # (Auto) 0.04 POC Sodium 141 Sodium 141 POC Potassium 3.7 Potassium 3.7 POC Chloride 103 Chloride 104 Carbon Dioxide 29 POC Total CO2 27 Anion Gap 8 POC Anion Gap 15.0 L POC BUN 19 H BUN 19 Creatinine 0.87 POC Creatinine 0.8 Est Cr Clr Drug Dosing 116.0 Est GFR ( Amer) 105.0 Est GFR (Non-Af Amer) 90.6 BUN/Creatinine Ratio 21.8 H Glucose 137 H POC Glucose (other) 136 H Lactate Calcium 9.7 POC Ioniz Calcium Sourav 1.19 Magnesium 2.0 Total Bilirubin 0.7 AST 29 ALT 87 H Alkaline Phosphatase 120 H Troponin I High Sens 16.5 B-Natriuretic Peptide 230 H Total Protein 7.5 Albumin 4.4 Globulin 3.1 Albumin/Globulin Ratio 1.4 TSH 2.868 Urine Color Yellow Urine Appearance Clear Urine pH 7.5 Ur Specific [place] 1.005 Urine Protein 1+ H Urine Glucose (UA) Negative Urine Ketones Negative Urine Blood Negative Urine Nitrite Negative Urine Bilirubin Negative Urine Urobilinogen Negative Ur Leukocyte Esterase Negative Urine WBC (Auto) 0 Urine RBC (Auto) 0-4 U Hyaline Cast (Auto) 0 U Epithel Cells (Auto) 0-5 Urine Bacteria (Auto) Negative Ethyl Alcohol mg/dL SARS-CoV-2 (PCR) Influenza Type A (PCR) Influenza Type B (PCR) RSV (RT-PCR) 05/03/23 05/03/23 05/03/23 15:15 15:36 17:45 WBC RBC Hgb POC Hgb Hct POC Hct MCV MCH MCHC RDW Std Deviation RDW Coeff of Patrice Plt Count MPV Immature Gran % (Auto) Neut % (Auto) Lymph % (Auto) [place]not[place] % (Auto) Eos % (Auto) Baso % (Auto) Neut # (Auto) Lymph # (Auto) [place] # (Auto) Eos # (Auto) Baso # (Auto) Immature Gran # (Auto) POC Sodium Sodium POC Potassium Potassium POC Chloride Chloride Carbon Dioxide POC Total CO2 Anion Gap POC Anion Gap POC BUN BUN Creatinine POC Creatinine Est Cr Clr Drug Dosing Est GFR ( Amer) Est GFR (Non-Af Amer) BUN/Creatinine Ratio Glucose POC Glucose (other) Lactate 0.9 Calcium POC Ioniz Calcium Sourav Magnesium Total Bilirubin AST ALT Alkaline Phosphatase Troponin I High Sens 28.3 H D B-Natriuretic Peptide Total Protein Albumin Globulin Albumin/Globulin Ratio TSH Urine Color Urine Appearance Urine pH Ur Specific [place] Urine Protein Urine Glucose (UA) Urine Ketones Urine Blood Urine Nitrite Urine Bilirubin Urine Urobilinogen Ur Leukocyte Esterase Urine WBC (Auto) Urine RBC (Auto) U Hyaline Cast (Auto) U Epithel Cells (Auto) Urine Bacteria (Auto) Ethyl Alcohol mg/dL < 10.0 SARS-CoV-2 (PCR) NEGATIVE Influenza Type A (PCR) Negative Influenza Type B (PCR) Negative RSV (RT-PCR) Negative 05/04/23 05/04/23 00:24 06:26 WBC 8.61 RBC 4.59 L Hgb 13.8 L POC Hgb Hct 40.9 L POC Hct MCV 89.1 MCH 30.1 MCHC 33.7 RDW Std Deviation 47.7 H RDW Coeff of Patrice 14.7 H Plt Count 155 MPV 11.0 Immature Gran % (Auto) 0.2 Neut % (Auto) 64.6 Lymph % (Auto) 18.6 Knott % (Auto) 9.3 Eos % (Auto) 6.3 Baso % (Auto) 1.0 Neut # (Auto) 5.56 Lymph # (Auto) 1.60 Knott # (Auto) 0.80 H Eos # (Auto) 0.54 H Baso # (Auto) 0.09 Immature Gran # (Auto) 0.02 POC Sodium Sodium 141 POC Potassium Potassium 3.4 L POC Chloride Chloride 104 Carbon Dioxide 32 POC Total CO2 Anion Gap 5 POC Anion Gap POC BUN BUN 21 Creatinine 0.93 POC Creatinine Est Cr Clr Drug Dosing 105.5 Est GFR ( Amer) 99.5 Est GFR (Non-Af Amer) 85.8 BUN/Creatinine Ratio 22.6 H Glucose 100 H POC Glucose (other) Lactate Calcium 8.8 POC Ioniz Calcium Sourav Magnesium Total Bilirubin 0.6 AST 19 ALT 57 H Alkaline Phosphatase 91 Troponin I High Sens 29.6 H 27.4 H B-Natriuretic Peptide Total Protein 6.0 Albumin 3.7 Globulin 2.3 L Albumin/Globulin Ratio 1.6 TSH Urine Color Urine Appearance Urine pH Ur Specific [place] Urine Protein Urine Glucose (UA) Urine Ketones Urine Blood Urine Nitrite Urine Bilirubin Urine Urobilinogen Ur Leukocyte Esterase Urine WBC (Auto) Urine RBC (Auto) U Hyaline Cast (Auto) U Epithel Cells (Auto) Urine Bacteria (Auto) Ethyl Alcohol mg/dL SARS-CoV-2 (PCR) Influenza Type A (PCR) Influenza Type B (PCR) RSV (RT-PCR) Diagnostic Findings Labs reviewed and notable for mildly elevated high-sensitivity troponin level, normal hemoglobin, stable renal function, normal TSH, mildly elevated BNP, normal magnesium. ECG personally reviewed 05/03/2023: Sinus with first-degree AV block [address]/T wave abnormality. Echo 05/04/2023: Normal LV size, wall motion, systolic function. EF 65 to 70%. Severe concentric LVH. Moderate left atrial dilation. Mild MR. History and physical report reviewed. Chest x-ray 05/03/2023: Mild interstitial/vascular thickening. Medications Administered Current Inpatient Medications Acetaminophen (Acetaminophen 325 Mg Tab) 650 mg PO Q4H PRN PRN Reason: Pain or Fever Stop: 06/02/23 20:16 Aspirin (Aspirin 81 Mg Ectab) 81 mg PO HS CARLO Stop: 06/02/23 22:29 Last Admin: 05/03/23 22:54 Dose: 81 mg Chlorthalidone (Chlorthalidone 25 Mg Tab) 25 mg PO DAILY CARLO Stop: 06/03/23 08:59 Last Admin: 05/04/23 08:37 Dose: 25 mg Enoxaparin Sodium (Enoxaparin Inj 40 Mg/0.4 Ml Syr) 40 mg SQ QPM CARLO Stop: 06/02/23 22:19 Last Admin: 05/03/23 22:54 Dose: 40 mg Fluticasone/Vilanterol (Fluticasone/Vilanterol 100/25mcg 14 Puffs/Inhaler) 1 puffs INH DAILY CARLO Stop: 06/03/23 08:59 Last Admin: 05/04/23 08:36 Dose: 1 puffs Furosemide (Furosemide 40 Mg/4 Ml Vial) 40 mg IV QAM CARLO Stop: 06/03/23 08:59 Last Admin: 05/04/23 08:37 Dose: 40 mg Hydralazine HCl (Hydralazine Tab 50 Mg Tab) 100 mg PO TID CARLO Stop: 06/02/23 20:59 Last Admin: 05/04/23 08:36 Dose: 100 mg Losartan Potassium (Losartan Potassium 50 Mg Tab) 50 mg PO DAILY CARLO Stop: 06/03/23 08:59 Last Admin: 05/04/23 08:35 Dose: 50 mg Metoprolol Succinate (Metoprolol Succ 50mg Ext Rel Tab) 50 mg PO HS [facility] Stop: 06/02/23 20:59 Last Admin: 05/03/23 21:18 Dose: 50 mg Pramipexole Dihydrochloride (Pramipexole Dihydrochlo 0.5 Mg Tab) 0.5 mg PO QPM PRN PRN Reason: NEEDED PER PT Stop: 06/02/23 20:16 Pramipexole Dihydrochloride (Pramipexole Dihydrochlo 0.5 Mg Tab) 1 mg PO HS CARLO Stop: 06/02/23 20:59 Last Admin: 05/03/23 21:18 Dose: 1 mg Rosuvastatin Calcium (Rosuvastatin Calcium 5 Mg Tab) 5 mg PO DAILY [facility] Stop: 06/03/23 08:59 Last Admin: 05/04/23 08:35 Dose: 5 mg Topiramate (Topiramate 25 Mg Tab) 25 mg PO BID [facility] Stop: 06/02/23 20:59 Last Admin: 05/04/23 08:35 Dose: 25 mg PG Care Time/CCT Total # of Minutes Spent Total Time Spent with Patient: Total time spent is greater than 50% in coordination of care (as documented) at patient's floor/unit and/or counseling patient: Coding Level of Care Code 98963 INT INP/OBS CARE MIN Diagnoses Tachyarrhythmia R00.0 Acute heart failure with preserved ejection fraction I50.31 Near syncope R55 Hypertension I10 Hypertension type: unspecified CAD (coronary artery disease) I25.10 History of coronary artery bypass graft Z95.1 Elevated troponin R79.89 (4) Hypertension Hypertension type: unspecified Qualified Code(s): I10 - Essential (primary) hypertension
--- NOTE | 2023-05-04 12:55 | Discharge Summary ---
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 He reports feeling well earlier today. [place] palpitations [place] at 2:15 PM [place]. He felt generally unwell and drove next-door 500 yards to his friend who is a vet and checked his blood pressure which was high and his heart rate which was in the 170s. Given his elevated heart rate his friend drove him to the emergency room. Started 2:15pm at his cabin and drove next door 500 yards. Saw his friend who was a vet and checked blood pressure and pulse was in 170s and drove him to the ER. Reportedly unsteady on his feet and in and out of for alertness. He was unresponsive in the waiting room with an ashen appearance and was brought immediately to room B1. Found to be in normal sinus rhythm in the 80s and became much more responsive and answering questions appropriately. He is currently alert and orientated x 3. He reports no current chest pain, shortness of breath, diaphoresis, nausea. He denies any chest pain prior to this episode. He denies any prior arrhythmias. He took all his morning medications this morning but did miss his midday hydralazine. Previous echocardiogram in 2020 showed a left ventricular ejection fraction 65 to 70%. Moderate to severe mitral regurgitation. He follows with Dr. Jaime with pulmonology due to history of triple bypass. He does negative a general feeling of something being wrong over the last week. He denies any chest pain, shortness of breath, fever, chills, respiratory symptoms, urinary symptoms, gastrointestinal symptoms. No presyncope or syncope. No palpitations other than today. He does report swelling in his legs and feet have increased over the last week. Unknown if having weight gain over the same period. Admission Exam Per Admitting Provider Constitutional: WD/WN, vitals as above Eyes: PERRL, conjunctivae normal, anicteric sclerae ENMT: external ear and nose normal, oropharynx normal Respiratory: normal respiratory effort, lungs clear to auscultation Cardiovascular: RRR, no murmur, no edema Gastrointestinal (Abdomen): normal bowel sounds, soft, nontender, no hepatosplenomegaly Musculoskeletal: no cyanosis or clubbing, extremities motor strength 5/5 Skin: no rashes, warm and dry Neurologic: moves all extremities and awake; not confused Psychiatric: A+Ox3, euthymic affect Principal Diagnosis tachyarrhythmia Discharge Exam Gen: well appearing gentleman in NAD HEENT: AT NC MMM CV: RRR no m/r/g clinically well perfused, radial pulses 2+ symmetric Resp: CTAB no wheezing, diminished breath sounds diffusely likely due to body habitus Abd: soft, non-tender, non-distended MSK: no obvious deformities Skin: no rashes or bruising Neuro: alert and oriented Psych: appropriate mood and affect Discharge Data Allergies Allergy/AdvReac Type Severity Reaction Status Date / Time No Known Allergies Allergy Verified 05/03/23 15:37 Consultations 05/03/23 16:52 ED Decision to Admit Stat 05/03/23 22:18 Consult Cardiology Routine Hospital Course (1) Tachyarrhythmia: Tachyarrhythmia Presentation suspicious for ventricular arrhythmia. Patient back in NSR. No recurrence of symptoms or arrhythmia seen on telemetry. Troponin peaked. Likely elevated in the setting of increased demand. ECHO ordered - severe concentric LVH, EF 65-70%, moderate left atrial dilatation, mild mitral regurgitation - similar findings to prior study. Cards consulted - appreciate recs. Will order event monitor. Patient to f/u with Dr. Jaime's office Acute on Chronic HFpEF Moderate to severe mitral regurgitation on previous echocardiogram in 2020. Patient reportedly fluid overloaded for the last few days. Is not on home Lasix. Repeat TTE ordered - similar findings to prior study. Hypervolemia may have triggered the arrhythmia. Lasix 40 mg IV QAM while inpatient. May benefit from outpatient diuretic use PRN for weight changes - given script for 20 mg Lasix as needed for weight gain, edema, SOB. 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 Per chart review it sounds like it was a lengthy procedure with bilateral atrial involvement requiring a bovine pericardial patch. Follows with Dr. Jaime. HTN Patient on chlorthalidone, hydralazine, candesartan, and metoprolol. BP well controlled on an outpatient basis. Would defer to outpatient provider on medication changes. RUBEN Continue home CPAP Restless Leg Syndrome Continue home pramipexole (2) Acute heart failure with preserved ejection fraction: (3) Obstructive sleep apnea: (4) Restless leg syndrome: Total Time Total Time Spent Total Time Spent (In Minutes): See attending attestation Discharge Plan Discharge Items Patient Disposition: Home - Self-Care Reason For Visit: TACHYARRYTHMIA Discharge Diagnosis: tachyarrhythmia Condition on Discharge: Fair Activity: Per Instructions section Non-emergency contact: Primary Care Provider and Tire Maintenance Technician Call non-emergency contact if: you have any medication questions and your symptoms worsen Follow-up/Referrals: Guillermo Stafford DO [Primary Care Provider] - Guanako Jaime DO [Physician] - Diet: Heart Healthy Addtl Attending Provider Instructions: You were admitted to the hospital for heart racing. This resolved by the time we were able to take a look at your heart rhythm. We ordered an event monitor to look at your heart rhythm on an outpatient basis. The results will go to Dr. Jaime. Someone should contact you about placing this monitor. If you do not hear from someone by Saturday, call Dr. Jaime's office. You did have some fluid on your legs and lungs when you arrived to the hospital. This may have contributed to your heart rhythm change. It is important for you to monitor your daily weights. Weigh yourself every morning using the same scale. Wear the same amount of clothing each time, without anything in your pockets. Keep a log of your daily weights, and bring this log with you every time you see your primary care physician, or any other doctor. If you noticed a 2-3 pound increase over 1-2 days or a 5 pound increase over the course of a week start taking Lasix 20 mg in the morning until back at your typical weight. A discharge summary will be sent to your primary care physician to ensure continuity of care. Please bring this discharge summary with you to your next office appointment so that your provider can review it at that time. Follow-up appointments: Make a follow-up appointment with your PCP within the next week. It is very important that you follow up with them shortly after discharge from the hospital. Medications: Your medication list has been reviewed and reconciled upon discharge to ensure accuracy and continuity of care. An updated list of all your medications is included with your hospital discharge paperwork. Please review this list closely, and make note of any changes. Take your medications as instructed; do not skip a dose of your medicines. Make sure all of your doctors know every medicine you are taking (including [id number] medicines, vitamins, and supplements). Call your primary care provider before taking any new medicines (including over- the-counter medicines, vitamins, and supplements), because some of these may interact with your current medications, or may make your symptoms worse. Tell your primary care provider if you cannot afford your medications. CONTACT YOUR PRIMARY CARE PROVIDER if you experience any of the following: heart racing, generally feeling unwell weight gain of more than 5 pounds in a week, or 3 pounds in a day Difficulty following your treatment plan, or difficulty taking medications CALL 911 OR GO TO THE EMERGENCY DEPARTMENT if you experience any of the following: Sudden, severe abdominal pain or nausea/vomiting Severe chest pain, or chest pain that radiates (moves) to your jaw or arm Sudden, severe shortness of breath or difficulty breathing Thank you for allowing us to participate in your care Pending Studies at Discharge: No Stand-Alone Forms: [facility] Sm[facility] Cessation Medications and DC Order Prescriptions: New furosemide [Lasix] 20 mg tablet 20 mg PO DAILY PRN (Reason: edema) Qty: 30 0RF Rx Instructions: take one tab for weight gain, leg swelling, or shortness of breath Continued hydralazine 100 mg tablet 100 mg PO TID candesartan 32 mg tablet 32 mg PO DAILY topiramate 25 mg tablet 25 mg PO BID Qty: 60 5RF Rx Instructions: PER PT "DID NOT START YET". chlorthalidone 25 mg tablet 25 mg PO DAILY fluticasone propion-salmeterol [Advair Diskus] 500-50 mcg/dose blister with device 1 inh INHALATION BID metoprolol succinate 50 mg tablet extended release 24 hr 50 mg PO HS rosuvastatin 5 mg tablet 5 mg PO DAILY pramipexole 0.5 mg tablet 0.5 mg PO QPM PRN (Reason: NEEDED PER PT) Rx Instructions: TAKES IN THE AFTERNOON IF NEEDED. Repatha Syringe 140 mg/mL syringe 140 mg SUBCUT .Q2WK pramipexole 1 mg tablet 1 mg PO HS albuterol sulfate 90 mcg/actuation HFA aerosol inhaler 2 puff INHALATION Q4H PRN (Reason: Wheezing) aspirin 81 mg Tablet 81 mg PO HS Discharge Orders: Discharge Order (Routine); Ordered 05/04/23 Ordered By: Ju Merida Admission Data Admit Date/Time: 05/03/23 17:16 Attending Provider: Zoe Solomon Admit Provider: Yann Diamond Primary Care Provider: Guillermo Stafford Other Providers: Yann Diamond; Tomasz Newman Other Interventions: Discharge Summary Assessment (RN) Last Done: 05/04/23 14:03 Supervising Physician Co-Signing Physician Notes Attending Physician Supervision Note: I independently interviewed and examined the patient and verified the [place] history and physical, reviewed labs and image studies and agree with findings and care plan noted above. Resident Activity Tracking Resident Involvement: Resident Care Provided Care Provided: Adult Hospital Medicine
--- NOTE | 2023-05-04 13:32 | Communication Note ---
Date of Service: May 04, 2023 By CMS guidelines, a determination that the admission or continued stay is not medically necessary has been made by a member of the UR committee and reyna andrews for this hospital stay, therefore a Code 44 will be completed and the Inpatient admission will be changed to outpatient.
== END 2023-05-04 14:28 | disposition home or self-care (01) | DRG 308 ==
LOC: ED 14:44 → 2E 17:16 → SUATTDRO 17:16 → INTOOBSV 17:16 → 2E 19:51

== ENCOUNTER 2023-11-17 17:52 | Inpatient (IN) ==
[2023-11-17] MEDS: ADENOSINE IV SOLN 3 MG/ML 2 ML VIAL IV STA (18:08)
[2023-11-17] MEDS: METOPROLOL TARTRATE 1 MG/ML VIAL IV STA (18:12)
--- NOTE | 2023-11-17 18:19 | Emergency Department Note ---
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 States he was sitting at home when he began to feel chest tightness and short of breath. Quite weak. Called his friend who brought him here to the hospital. Heart rates been elevated in the 160s and blood pressure was elevated prior to coming in. Has a history of tachyarrhythmia in April for which he is evaluated here but he can never quite deduce what exactly happened. No history of A-fib reported. Denies any syncope or falls. No significant recent illness reported. Trace swelling of the legs but not significantly increased. Has been taking his medications including his metoprolol last night. Reports diffuse chest tightness but no significant headache or abdominal pain. PAST MEDICAL HISTORY: As noted above MEDICATIONS: Reviewed home medication includes aspirin SOCIAL HISTORY: Smoker PHYSICAL EXAM: GENERAL: On stretcher fatigued in appearance eyes closed easily alert to verbal stimuli Head: normocephalic and atraumatic EYES: No injection, discharge or icterus. EOMI. NECK: Trachea midline. ENT: Mucous membranes pink and moist. LUNGS: Airway patent. No retractions. Breath sounds clear with good air entry bilaterally. HEART: Regular tachycardic rate and rhythm. No chest wall tenderness, well- healed sternal scar ABDOMEN: Soft and non-tender, without guarding or rebound. SKIN: Acyanotic, warm, dry, without rashes EXTREMITIES: Without swelling, tenderness or deformity NEUROLOGICAL: No focal deficits. No aphasia. No facial droop or slurred speech. EK bpm tachycardia probable atrial flutter with some inferior lateral ST depression but no clear acute ST segment elevation. QTc 471. CONTINUOUS CARDIAC MONITORING: was ordered and showed a heart rate of 100s-160s bpm in atrial A-fib/flutter later converting to a sinus rhythm in the 60s Patient's laboratory studies and imaging reviewed. Differential includes Cardiac ischemia, aortic dissection, pulmonary embolism, pneumothorax, pneumonia, pericarditis, myocarditis, esophageal rupture, GERD, cholecystitis, pancreatitis, musculoskeletal, as well as other pathologies. IMPRESSION/MEDICAL DECISION MAKING: Called to the room as patient was found to be significantly tachycardic in triage and immediately seen in room C11. Patient with chest tightness hypertensive but not hypoxic. Regular narrow complex tachycardia. To further inform if this was SVT, VT, or possibly atrial flutter did utilize a dose of adenosine. 6 mg IV dose administered and appears to show more flutter and fib waves underlying and I do not believe this represents SVT; patient quickly reverted to an irregular fast rhythm but not to the same rate in the 160s now in the 1 teens to 120s. Does not appear to be VT. patient was given a 5 mg IV dose of metoprolol with further rate improvement to around 100 irregular narrow complex. Again not hypoxic but hypertensive. Troponin is sent but feel likely his tightness is demand related to the elevated heart rate. Evidently did have a heart monitor before but they have never truly caught this tachyarrhythmia in the past. TSH and electrolytes sent. Blood work are generally reassuring without anemia or signs of thyroid dysfunction. Initial troponin negative and patient's chest pain has improved on reassessment. Does appear to have put back into a normal sinus rhythm. Discussed with the stroke risk given his risk factors based on [id number] 1 anticoagulation but will defer to the hospitalist team. Given the chest x-ray findings and fluid on his lungs limited swelling of his legs will give a dose of Lasix here. Home restless leg medicine ordered per his request. Blood pressure significantly elevated and given some relative bradycardia ordered his home hydralazine. Discussion with him did recommend given his significant chest pain and EKG changes with the rapid a flutter/fib today would recommend observation overnight. Hospitalist was contacted. DIAGNOSIS: Rapid atrial fib/flutter, chest tightness, hypertension DISPOSITION: Hospitalist will evaluate Patient was agreeable with this plan. Critical Care I have personally spent 32 minutes of critical care time in the direct management of this patient. This includes bedside care, interpretation of diagnostic studies, and testing, discussion with consultants, patient, and friend members, and other required patient management activities. These 32 minutes is in excess of all separately billable procedures. Past Med/Surg History Problem List (Updated 11/17/23 @ 19:55 by Shira Arciniega DO) Hyperlipidemia Supraventricular tachycardia Chest tightness (Acute) Atrial flutter with rapid ventricular response (Acute) Acute angle-closure glaucoma Elevated troponin History of coronary artery bypass graft CAD (coronary artery disease) Pedal edema (Acute) Hypertension (Acute) Acute heart failure with preserved ejection fraction Tachyarrhythmia Migraine Migraine-cluster headache syndrome Orthostatic syncope Lumbar stenosis with neurogenic claudication (Chronic 01/15/14) Restless leg syndrome (Chronic) Parasomnia (Chronic) Obstructive sleep apnea (Chronic) Hypertension (Chronic) Dyslipidemia (Chronic) Degenerative disc disease (Chronic) Cluster headache (Chronic) Arthralgia of multiple sites (Chronic) Somnambulism (Chronic) Headache (Acute) Tachypnea (Acute) Acute dehydration (Acute) Acidosis (Acute) Admitted to intensive care unit Loss of consciousness Seizure-like activity Medical History Accidental aspirin overdose Surgical History History of laminectomy History of cardiac cath Family History Father Myocardial infarction Mother Heart disease Social History Smoking Status: Unknown if ever smoked Tobacco Type: Cigarettes Cigarettes Per Day: 10; Second Hand Exposure: No; Do You Dip or Chew Tobacco: No; Hx Alcohol Use: Yes Alcohol type: hard liquor Hx Substance Use: No Preferred Language: Georgian Communication Ability: Effective Hearing Ability: Normal Operations Administrator Required: No Beliefs That Will Affect Care: None marital status: Single Current Living Situation: Alone current occupation: Retired Feels Safe at Home: Yes Assistive Devices: Glasses Allergies Allergies Allergy/AdvReac Type Severity Reaction Status Date / Time No Known Allergies Allergy Verified 11/17/23 19:31 Home Meds Home Medications Medication Instructions Recorded Confirmed candesartan 32 mg tablet 32 mg PO DAILY 01/13/19 11/17/23 hydralazine 100 mg tablet 100 mg PO TID 01/13/19 11/17/23 chlorthalidone 25 mg tablet 25 mg PO DAILY 02/07/21 11/17/23 fluticasone 500 mcg-salmeterol 50 1 inh inhalation BID 02/07/21 11/17/23 mcg/dose blistr powdr for inhalation (Advair Diskus) metoprolol succinate 50 mg 50 mg PO HS 06/16/22 11/17/23 tablet,extended release 24 hr albuterol sulfate 90 mcg/actuation 2 puff inhalation Q4H PRN Wheezing 05/03/23 11/17/23 aerosol inhaler evolocumab 140 mg/mL subcutaneous 140 mg subcut .Q2WK 05/03/23 11/17/23 syringe (Repatha Syringe) aspirin 81 mg tablet,delayed 81 mg PO HS 11/17/23 11/17/23 release Previous Rx's Medication Instructions Recorded furosemide 20 mg tablet (Lasix) 20 mg PO DAILY PRN edema #30 tabs 05/04/23 pramipexole 1 mg tablet 1 mg PO .COMPLEX #90 tabs 11/11/23 Results & Data (ED) Vital Signs Vital Signs - 24 hr 11/17/23 17:53 11/17/23 18:00 11/17/23 18:03 Temperature 36.8 C Temperature Source Temporal Artery Scan Pulse Rate 161 H 160 H 160 H Pulse Rate from SpO2 Sensor Respiratory Rate 22 23 Blood Pressure 153/109 H Blood Pressure Mean 123 Pulse Oximetry 94 Oxygen Delivery Method Room Air Sepsis Recent Fever Within 48 Hours No Sepsis New/Unexplained Change in Mental Status No Sepsis Action Taken by Nursing No Action Required 11/17/23 18:04 11/17/23 18:06 11/17/23 18:11 Temperature Temperature Source Pulse Rate 160 H Pulse Rate from SpO2 Sensor Respiratory Rate 27 H Blood Pressure 146/111 H 163/91 H Blood Pressure Mean 126 101 Pulse Oximetry Oxygen Delivery Method Sepsis Recent Fever Within 48 Hours Sepsis New/Unexplained Change in Mental Status Sepsis Action Taken by Nursing 11/17/23 18:12 11/17/23 18:15 11/17/23 18:21 Temperature Temperature Source Pulse Rate 124 H 107 H Pulse Rate from SpO2 Sensor 54 L Respiratory Rate 17 Blood Pressure 163/91 H 138/90 Blood Pressure Mean 101 Pulse Oximetry 93 Oxygen Delivery Method Sepsis Recent Fever Within 48 Hours Sepsis New/Unexplained Change in Mental Status Sepsis Action Taken by Nursing 11/17/23 18:21 11/17/23 18:24 11/17/23 18:30 Temperature Temperature Source Pulse Rate 107 H Pulse Rate from SpO2 Sensor 54 L Respiratory Rate 22 Blood Pressure 138/90 204/99 H Blood Pressure Mean 101 157 Pulse Oximetry 93 Oxygen Delivery Method Sepsis Recent Fever Within 48 Hours Sepsis New/Unexplained Change in Mental Status Sepsis Action Taken by Nursing 11/17/23 18:36 11/17/23 18:41 11/17/23 19:24 Temperature Temperature Source Pulse Rate 109 H 63 70 Pulse Rate from SpO2 Sensor 55 L Respiratory Rate 21 20 Blood Pressure 155/93 H Blood Pressure Mean 113 Pulse Oximetry 94 94 Oxygen Delivery Method Room Air Sepsis Recent Fever Within 48 Hours Sepsis New/Unexplained Change in Mental Status Sepsis Action Taken by Nursing 11/17/23 19:39 Temperature Temperature Source Pulse Rate 67 Pulse Rate from SpO2 Sensor Respiratory Rate 20 Blood Pressure 155/93 H Blood Pressure Mean 113 Pulse Oximetry 94 Oxygen Delivery Method Room Air Sepsis Recent Fever Within 48 Hours Sepsis New/Unexplained Change in Mental Status Sepsis Action Taken by Nursing Laboratory Data 11/17/23 18:13 11/17/23 19:33 Lab Results 11/17/23 11/17/23 Range/Units 18:13 19:33 WBC 7.66 (4.8-10.8) K/ul RBC 5.36 (4.70-6.10) M/uL Hgb 16.0 (14.0-18.0) g/dl Hct 48.0 (42.0-52.0) % MCV 89.6 (80.0-100.0) fL MCH 29.9 (25.0-34.0) pg MCHC 33.3 (32.0-36.0) g/dL RDW Std Deviation 48.4 H (36.4-46.3) fL RDW Coeff of Patrice 14.8 H (11.5-14.5) % Plt Count 137 (130-400) K/uL MPV 11.6 (9.4-12.4) fL Immature Gran % (Auto) 0.3 % Neut % (Auto) 63.6 % Lymph % (Auto) 21.3 % [place] % (Auto) 8.6 % Eos % (Auto) 5.4 % Baso % (Auto) 0.8 % Neut # (Auto) 4.88 (1.40-6.50) K/uL Lymph # (Auto) 1.63 (1.20-3.40) K/uL [place] # (Auto) 0.66 H (0.11-0.59) K/uL Eos # (Auto) 0.41 (0.00-0.50) K/uL Baso # (Auto) 0.06 (0.00-0.20) K/uL Immature Gran # (Auto) 0.02 (0.01-0.20) K/uL PT Cancelled 10.3 INR Cancelled 0.9 APTT Cancelled 26 PTT Ratio Cancelled 1.0 Sodium 138 (136-145) mmol/L Potassium TNP 3.5 Chloride 102 (98-107) mmol/L Carbon Dioxide 30 (21-32) mmol/L Anion Gap 6 (3-11) BUN 29 H (6-23) mg/dl Creatinine 0.83 (0.6-1.4) mg/dl Est Cr Clr Drug Dosing Not Reportable Est GFR ( Amer) 107.0 ml/min Est GFR (Non-Af Amer) 92.3 ml/min BUN/Creatinine Ratio 34.9 H (10-20) Glucose 124 H (70-99(Fasting)) mg/dl Calcium 9.6 (8.6-10.3) mg/dl Magnesium 2.1 (1.7-2.4) mg/dl Total Bilirubin 0.4 (0.2-1.0) mg/dl AST TNP 30 ALT 30 (7-52) U/L Alkaline Phosphatase 122 H (34-104) U/L Troponin I High Sens 11.0 (0-20) pg/ml Total Protein 7.3 (6.0-8.3) gm/dl Albumin 4.1 (3.4-5.0) gm/dl Globulin 3.2 (2.5-4.0) gm/dl Albumin/Globulin Ratio 1.3 (0.9-2) TSH 1.643 (0.300-4.500) uIu/ml Administered Medications Potassium Chloride (K Jam / Wtr) 10 meq in 100 mls @ 100 mls/hr IV Q1H [facility] Stop: 11/17/23 23:14 Last Admin: 11/17/23 21:46 Dose: 100 mls/hr Documented By: JT Discontinued Medications Adenosine (Adenosine Iv Soln 3 Mg/Ml 2 Ml Vial) Confirm Administered Dose 18 mg IV .STK-MED ONE Stop: 11/17/23 18:05 Last Admin: 11/17/23 18:35 Dose: Not Given Documented By: HS Adenosine (Adenosine Iv Soln 3 Mg/Ml 2 Ml Vial) 6 mg IV NOW STA Stop: 11/17/23 18:06 Last Admin: 11/17/23 18:08 Dose: 6 mg Documented By: HS Furosemide (Furosemide Inj 20 Mg/2 Ml Vial) 20 mg IV ONE ONE Stop: 11/17/23 19:26 Last Admin: 11/17/23 19:49 Dose: 20 mg Documented By: JT Hydralazine HCl (Hydralazine Hcl 25 Mg Tab) 100 mg PO NOW STA Stop: 11/17/23 19:27 Last Admin: 11/17/23 19:49 Dose: 100 mg Documented By: JonT Magnesium Sulfate/Dextrose (Magnesium Sulfate / D5w) 1 gm in 100 mls @ 200 mls/hr IV Q30M CARLO Stop: 11/17/23 19:29 Last Infusion: 11/17/23 20:49 Dose: Infused Documented By: Admin: 11/17/23 19:49 Dose: 100 mls/hr Documented By: Infusion: 11/17/23 19:05 Dose: Infused Documented By: Admin: 11/17/23 18:35 Dose: 200 mls/hr Documented By: HS Metoprolol Tartrate (Metoprolol Tartrate 1 Mg/Ml Vial) 5 mg IV NOW STA Stop: 11/17/23 18:10 Last Admin: 11/17/23 18:12 Dose: 5 mg Documented By: KMO Metoprolol Tartrate (Metoprolol Tartrate 1 Mg/Ml Vial) Confirm Administered Dose 5 mg IV .STK-MED ONE Stop: 11/17/23 18:11 Last Admin: 11/17/23 18:35 Dose: Not Given Documented By: HS Potassium Chloride (Potassium Chloride Crtab 20 Meq Tabcr) 40 meq PO NOW STA Stop: 11/17/23 21:06 Last Admin: 11/17/23 21:46 Dose: 40 meq Documented By: JonT Pramipexole Dihydrochloride (Pramipexole Dihydrochlo 0.5 Mg Tab) 1 mg PO ONCE ONE Stop: 11/17/23 19:17 Last Admin: 11/17/23 19:26 Dose: 1 mg Documented By: JT Imaging Data Radiologist's Impression: Chest X-Ray 11/17/23 18:14 XR chest 1V portable CLINICAL HISTORY: Chest pain. COMPARISON STUDY: Chest CT January 29, 2020. Chest radiograph May 03, 2023. FINDINGS: Postoperative findings within the spine are incidentally noted. There are median sternotomy wires and mediastinal surgical clips. Cardiomegaly is unchanged. There is pulmonary vascular congestion. Minimal bibasilar opacities favor atelectasis. There is no consolidation to suggest pneumonia. There is no pneumothorax or pleural effusion. IMPRESSION: 1. Cardiomegaly with pulmonary vascular congestion. 2. Mild bibasilar densities suggestive of atelectasis. No consolidation to suggest pneumonia. ACT 112: Negative or not required by law. Electronically signed by: Krystian Tolbert M.D. 11/17/2023 6:36 PM Discharge Plan Visit Data Chief Complaint: Cardiac Assessment Stated Complaint: CHEST PAINS ED Provider: Jose Miguel Bronson Discharge Problem: Atrial flutter with rapid ventricular response, Chest tightness Patient Disposition: Being Evaluated by Hospitalist
[2023-11-17 18:32] LABS: Basophils # (auto) 0.06 K/uL (0.00-0.20); Basophils % (auto) 0.8 %; Eosinophils # (auto) 0.41 K/uL (0.00-0.50); Eosinophils % (auto) 5.4 %; Immature Granulocytes # (auto) 0.02 K/uL (0.01-0.20); Immature Granulocytes % (auto) 0.3 %; Lymphocytes # (auto) 1.63 K/uL (1.20-3.40); Lymphocytes % (auto) 21.3 %; Mean Corpuscular Hemoglobin 29.9 pg (25.0-34.0); Mean Corpuscular Hgb Conc 33.3 g/dL (32.0-36.0); Mean Corpuscular Volume 89.6 fL (80.0-100.0); Mean Platelet Volume 11.6 fL (9.4-12.4); Monocytes # (auto) 0.66 K/uL (0.11-0.59); Monocytes % (auto) 8.6 %; Neutrophils # (auto) 4.88 K/uL (1.40-6.50); Neutrophils % (auto) 63.6 %; Platelet Count 137 K/uL (130-400); RDW Coefficient of Variation 14.8 % (11.5-14.5); RDW Standard Deviation 48.4 fL (36.4-46.3); Red Blood Count 5.36 M/uL (4.70-6.10); White Blood Count 7.66 K/ul (4.8-10.8)
[2023-11-17] MEDS: ADENOSINE IV SOLN 3 MG/ML 2 ML VIAL IV ONE (18:35)
[2023-11-17] MEDS: METOPROLOL TARTRATE 1 MG/ML VIAL IV ONE (18:35)
[2023-11-17] MEDS: MAGNESIUM SULFATE / D5W 1 GM/100 ML BAG IV SCH (18:35)
--- NOTE | 2023-11-17 18:37 | XRay Report ---
XR chest 1V portable CLINICAL HISTORY: Chest pain. COMPARISON STUDY: Chest CT January 29, 2020. Chest radiograph May 03, 2023. FINDINGS: Postoperative findings within the spine are incidentally noted. There are median sternotomy wires and mediastinal surgical clips. Cardiomegaly is unchanged. There is pulmonary vascular congest ion. Minimal bibasilar opacities favor atelectasis. There is no consolidation to suggest pneumonia. T here is no pneumothorax or pleural effusion. IMPRESSION: 1. Cardiomegaly with pulmonary vascular congestion. 2. Mild bibasilar densities suggestive of atelectasis. No consolidation to suggest pneumonia. ACT 112: Negative or not required by law. Electronically signed by: Krystian Tolbert M.D. 11/17/2023 6:36 PM
[2023-11-17 19:02] LABS: Alanine Aminotransferase 30 U/L (7-52); Albumin Globulin Ratio 1.3 (0.9-2); Albumin Level 4.1 gm/dl (3.4-5.0); Alkaline Phosphatase 122 U/L (34-104); Anion Gap 6 (3-11); BUN Creatinine Ratio 34.9 (10-20); Bilirubin,Total 0.4 mg/dl (0.2-1.0); Blood Urea Nitrogen 29 mg/dl (6-23); Calcium 9.6 mg/dl (8.6-10.3); Carbon Dioxide 30 mmol/L (21-32); Chloride 102 mmol/L (98-107); Est GFR (Non-African American) 92.3 ml/min; Globulin 3.2 gm/dl (2.5-4.0); Glucose 124 mg/dl (70-99(Fasting)); Magnesium 2.1 mg/dl (1.7-2.4); Sodium 138 mmol/L (136-145); Thyroid Stimulating Hormone 1.643 uIu/ml (0.300-4.500); Total Protein 7.3 gm/dl (6.0-8.3)
[2023-11-17] MEDS: PRAMIPEXOLE DIHYDROCHLO 0.5 MG TAB PO ONE (19:26)
[2023-11-17] MEDS: FUROSEMIDE INJ 20 MG/2 ML VIAL IV ONE (19:49)
[2023-11-17] MEDS: hydrALAZINE HCL 25 MG TAB PO STA (19:49)
--- NOTE | 2023-11-17 20:04 | History & Physical Report ---
Date of Service November 17, 2023 Assessment & Plan (1) Supraventricular tachycardia: Plan: Pt is a 63 yo male with PMH of CAD (s/p CABG x3), cardiac tumor (s/p resection), RUBEN, HLD, HTN, and COPD presenting due to chest pain. SVT - lab work significant for CBC WNL, BMP showing normal Cr, K 3.5, ALT/AST WNL, trop neg, TSH WNL - EKG showing SVT with rates to 160 - CXR showing pulmonary vascular congestion and bibasilar atelectasis - s/p adenosine 6mg, metoprolol 5mg, mag 1g, hydralazine 100mg PO, and lasix 20 mg in the ER; pt's HR now stable in the 60s - goal K >4, Mg >2; given 40 meq K PO and 20 meq K IV- will recheck in AM - admit to PCU/tele for continued monitoring overnight; will resume home medications and monitor for symptom recurrence - encouraged continued outpatient f/u with his educational program director as he missed his last appt HFpEF - last echo 04/2023 showing normal LV function with EF 65-70% with severe LVH - CXR as above; s/p lasix 20 mg in the ER - pt has prescription for lasix PRN at home but he has only used this once - will recheck echo to ensure no deterioration in heart function HTN - continue pt's home medications - per pt's last cardio note, he is to be on entresto; however, pt not currently taking this - would recommend reinitiation of entresto either in hospital or upon discharge as this would be beneficial for his for BP control and his hx of HF HLD - hold home repatha RLS - continue home pramipexole COPD - continue home inhalers RUBEN - CPAP HS Diet: heart healthy Code: full DVT ppx: lovenox Dispo: admit to PCU/tele (2) Acute heart failure with preserved ejection fraction: (3) Restless leg syndrome: (4) Hypertension: (5) Obstructive sleep apnea: (6) CAD (coronary artery disease): (7) Hyperlipidemia: History of Present Illness Chief Complaint: chest pain/tightness Primary Care Provider: Guillermo Stafford DO Pt is a 63 yo male with PMH of CAD (s/p CABG x3), cardiac tumor (s/p resection), RUBEN, HLD, HTN, and COPD presenting due to chest pain. Pt notes around 4:30PM he began to experience chest tightness, SOB, diaphoresis, and a feeling of general unwell. He waited half an hour to see if this would go away before seeking medical attention. He states he has had episodes like this in the past but they have mostly self resolved. He denies radiation of the chest tightness/pain, N/V, and syncope. He endorses a complicated cardiac hx including removal of a large cardiac tumor and CABG 5-6 yrs ago. He denies significant cardiac issues in that time aside from an admission in Apr 2023 for similar symptoms to today. Pt notes he follows with Dr. Jaime q6mths; however, he missed his last appt. No medication changes since his last hospital admission. In the ER, pt was given adenosine 6 mg x1, metoprolol 5 mg x1, mag 1g, pramipexole 1 mg x1, hydralazine 100mg PO x1, and furosemide 20 mg x1. Allergies Allergy/AdvReac Type Severity Reaction Status Date / Time No Known Allergies Allergy Verified 11/17/23 19:31 Home Medications Medication Instructions Recorded Confirmed Type candesartan 32 mg tablet 32 mg PO DAILY 01/13/19 11/17/23 History hydralazine 100 mg tablet 100 mg PO TID 01/13/19 11/17/23 History chlorthalidone 25 mg tablet 25 mg PO DAILY 02/07/21 11/17/23 History fluticasone 500 mcg-salmeterol 50 1 inh inhalation BID 02/07/21 11/17/23 History mcg/dose blistr powdr for inhalation (Advair Diskus) metoprolol succinate 50 mg 50 mg PO HS 06/16/22 11/17/23 History tablet,extended release 24 hr albuterol sulfate 90 mcg/actuation 2 puff inhalation Q4H PRN Wheezing 05/03/23 11/17/23 History aerosol inhaler evolocumab 140 mg/mL subcutaneous 140 mg subcut .Q2WK 05/03/23 11/17/23 History syringe (Repatha Syringe) furosemide 20 mg tablet (Lasix) 20 mg PO DAILY PRN edema #30 tabs 05/04/23 11/17/23 Rx pramipexole 1 mg tablet 1 mg PO .COMPLEX #90 tabs 11/11/23 11/17/23 Rx aspirin 81 mg tablet,delayed 81 mg PO HS 11/17/23 11/17/23 History release Past Med/Surg History Problem List (Updated 11/17/23 @ 19:55 by Shira Arciniega DO) Hyperlipidemia Supraventricular tachycardia Chest tightness (Acute) Atrial flutter with rapid ventricular response (Acute) Acute angle-closure glaucoma Elevated troponin History of coronary artery bypass graft CAD (coronary artery disease) Pedal edema (Acute) Hypertension (Acute) Acute heart failure with preserved ejection fraction Tachyarrhythmia Migraine Migraine-cluster headache syndrome Orthostatic syncope Lumbar stenosis with neurogenic claudication (Chronic 01/15/14) Restless leg syndrome (Chronic) Parasomnia (Chronic) Obstructive sleep apnea (Chronic) Hypertension (Chronic) Dyslipidemia (Chronic) Degenerative disc disease (Chronic) Cluster headache (Chronic) Arthralgia of multiple sites (Chronic) Somnambulism (Chronic) Headache (Acute) Tachypnea (Acute) Acute dehydration (Acute) Acidosis (Acute) Admitted to intensive care unit Loss of consciousness Seizure-like activity Medical History Accidental aspirin overdose Surgical History History of laminectomy History of cardiac cath Family History Father Myocardial infarction Mother Heart disease Social History Smoking Status: Current some day smoker Tobacco Type: Cigarettes Cigarettes Per Day: 1 or 2 cigarettes; Second Hand Exposure: No; Do You Dip or Chew Tobacco: No; Tobacco Cessation Education Requested by Patient: No Hx Alcohol Use: Yes Alcohol type: hard liquor Hx Substance Use: No Preferred Language: Russian Communication Ability: Effective Hearing Ability: Normal Toll Lineman Required: No Beliefs That Will Affect Care: None marital status: Single Current Living Situation: Alone current occupation: Retired Other Information That Helps Us Care for You: No Feels Safe at Home: Yes Safety Concerns: Feels Safe At This Time Assistive Devices: CPAP Review of Systems Review of Systems: As per HPI Physical Exam Constitutional: NAD, vitals WNL. Eyes: Conjunctivae normal. Respiratory: CTA bilaterally. Non labored breathing. No rhonchi, wheezing, or crackles. Cardiovascular: RRR. No murmurs noted. Minimal nonpitting bilateral LE edema. Gastrointestinal (Abdomen): Nontender, +BS. No masses noted. Skin: No rashes or skin lesions noted. Neurologic: Sensation grossly intact. No FND appreciated. Psychiatric: Speech of normal pace and content. Mood and affect congruent. Results & Data Results & Data Vital Signs (Past 12 Hours) Vital Signs Temp Pulse Resp BP Pulse Ox O2 Del Method 11/17/23 19:24 70 20 155/93 H 94 Room Air 11/17/23 18:41 63 11/17/23 18:36 109 H 21 94 11/17/23 18:30 204/99 H 11/17/23 18:24 107 H 22 93 11/17/23 18:21 138/90 11/17/23 18:21 138/90 11/17/23 18:15 107 H 17 93 11/17/23 18:12 124 H 163/91 H 11/17/23 18:11 163/91 H 11/17/23 18:06 160 H 27 H 11/17/23 18:04 146/111 H 11/17/23 18:03 160 H 23 11/17/23 18:00 160 H 11/17/23 17:53 36.8 C 161 H 22 153/109 H 94 Room Air Supervising Physician Co-Signing Physician Notes Attending addendum: I have physically seen this patient, have supervised the medical residents activities, and agree with the H&P unless as otherwise noted. Assessment and Plan: SVT/HFpEF/hypertension- EKG on arrival with SVT at 161 From the ED received the following: Adenosine 6 mg IV, Lopressor 5 mg IV, furosemide 20 mg IV, hydralazine 100 mg p.o. The patient will be admitted to telemetry for serial cardiac enzymes, serial EKG's, cardiac rhythm monitoring and a 2-D echocardiogram with Dopplers. Potassium 3.5 and magnesium 2.1 Goals of potassium greater than 4 and magnesium greater than 2, with supplementation and then repeat laboratories in a.m. Hold chlorthalidone for now Consult cardiology, to review patient's appropriate dosing of Entresto versus continuous of current medications COPD- Continue routine inhalers RLS- Continue pramipexole RUBEN- CPAP at at bedtime Resident Activity Tracking Resident Involvement: Resident Care Provided Care Provided: Adult Hospital Medicine (4) Hypertension Hypertension type: unspecified Qualified Code(s): I10 - Essential (primary) hypertension
[2023-11-17 20:12] LABS: Potassium 3.5 mmol/L (3.5-5.1)
[2023-11-17 20:30] LABS: INR 0.9 (0.9-1.1); Partial Thromboplastin Time 26 Seconds (21-31); Prothrombin Time 10.3 Seconds (9.0-12.0)
[2023-11-17] MEDS ORDERED: POLYETHYLENE (MIRALAX) 17 GM PACK PO PRN (20:33)
[2023-11-17] MEDS ORDERED: ONDANSETRON INJ 2 MG/ML 2 ML VIAL IV PRN (20:33)
[2023-11-17] MEDS ORDERED: ACETAMINOPHEN 325 MG TAB PO PRN (20:33)
[2023-11-17] MEDS: POTASSIUM CHLORIDE CRTAB 20 MEQ TABCR PO STA (21:46)
[2023-11-17] MEDS: POTASSIUM CHLORIDE / WTR 10 MEQ/100 ML PLCT IV SCH (21:46)
[2023-11-17] MEDS ORDERED: ALBUTEROL HFA 8 GM INHALER INH PRN (22:35)
[2023-11-17] MEDS: IBUPROFEN 600 MG TAB PO ONE (23:27)
[2023-11-17] MEDS: MELATONIN 3 MG TAB PO PRN (23:27)
[2023-11-17] MEDS: ASPIRIN 81 MG ECTAB PO SCH (23:28)
[2023-11-17] MEDS: PRAMIPEXOLE DIHYDROCHLO 0.5 MG TAB PO SCH (23:30)
[2023-11-17] MEDS: hydrALAZINE TAB 50 MG TAB PO SCH (23:32)
[2023-11-17] MEDS: METOPROLOL SUCC 50MG EXT REL TAB PO SCH (23:33)
--- NOTE | 2023-11-17 23:55 | Billing Data ---
Date of Service November 17, 2023 Coding Level of Care Code 07445 INT INP/OBS CARE
[2023-11-18 06:33] LABS: Hematocrit (blood only) 45.2 % (42.0-52.0); Hemoglobin 14.7 g/dl (14.0-18.0); Mean Corpuscular Hemoglobin 29.2 pg (25.0-34.0); Mean Corpuscular Hgb Conc 32.5 g/dL (32.0-36.0); Mean Corpuscular Volume 89.9 fL (80.0-100.0); Mean Platelet Volume 11.1 fL (9.4-12.4); Platelet Count 143 K/uL (130-400); RDW Coefficient of Variation 14.7 % (11.5-14.5); RDW Standard Deviation 49.1 fL (36.4-46.3); Red Blood Count 5.03 M/uL (4.70-6.10); White Blood Count 7.11 K/ul (4.8-10.8)
[2023-11-18] MEDS: PERFLUTREN LIPID MICROSPHERE (DEFINITY) IV ONE (07:01)
[2023-11-18 07:36] LABS: BUN Creatinine Ratio 27.3 (10-20); Calcium 8.3 mg/dl (8.6-10.3); Creatinine Clr Calc Pharmacy 100.4 ml/min; Est GFR (African American) 92.2 ml/min; Est GFR (Non-African American) 79.6 ml/min; Magnesium 2.3 mg/dl (1.7-2.4); Potassium 3.5 mmol/L (3.5-5.1)
[2023-11-18] MEDS: ENOXAPARIN INJ 40 MG/0.4 ML SYR SQ SCH (08:06)
[2023-11-18] MEDS: EMPAGLIFLOZIN 10 MG TAB PO SCH (08:06)
[2023-11-18] MEDS: FLUTICASONE/VILANTEROL 100/25MCG 14 PUFFS/INHALER INH SCH (08:09)
[2023-11-18] MEDS ORDERED: CHLORTHALIDONE 25 MG TAB PO SCH (09:00)
[2023-11-18] MEDS: POTASSIUM CHLORIDE CRTAB 20 MEQ TABCR PO ONE (09:09)
--- NOTE | 2023-11-18 12:25 | Discharge Summary ---
Date of Service November 18, 2023 Admission HPI Per Admitting Provider Pt is a 63 yo male with PMH of CAD (s/p CABG x3), cardiac tumor (s/p resection), RUBEN, HLD, HTN, and COPD presenting due to chest pain. Pt notes around 4:30PM he began to experience chest tightness, SOB, diaphoresis, and a feeling of general unwell. He waited half an hour to see if this would go away before seeking medical attention. He states he has had episodes like this in the past but they have mostly self resolved. He denies radiation of the chest tightness/pain, N/V, and syncope. He endorses a complicated cardiac hx including removal of a large cardiac tumor and CABG 5-6 yrs ago. He denies significant cardiac issues in that time aside from an admission in Apr 2023 for similar symptoms to today. Pt notes he follows with Dr. Jaime q6mths; however, he missed his last appt. No medication changes since his last hospital admission. In the ER, pt was given adenosine 6 mg x1, metoprolol 5 mg x1, mag 1g, pramipexole 1 mg x1, hydralazine 100mg PO x1, and furosemide 20 mg x1. Admission Exam Per Admitting Provider Constitutional: NAD, vitals WNL. Eyes: Conjunctivae normal. Respiratory: CTA bilaterally. Non labored breathing. No rhonchi, wheezing, or crackles. Cardiovascular: RRR. No murmurs noted. Minimal nonpitting bilateral LE edema. Gastrointestinal (Abdomen): Nontender, +BS. No masses noted. Skin: No rashes or skin lesions noted. Neurologic: Sensation grossly intact. No FND appreciated. Psychiatric: Speech of normal pace and content. Mood and affect congruent. Principal Diagnosis SVT Discharge Exam General: AAOx3, afebrile, calm, NAD Chest: symmetrical chest expansions with respirations CV: RRR, no r/m/g Pulm: CTA b/l, normal respiratory effort, breathing at room air, no respiratory distress GI: soft, nontender, nondistended Extremity: mild swelling with +1 pitting in b/l LE, no calf tenderness bilaterally Discharge Data Allergies Allergy/AdvReac Type Severity Reaction Status Date / Time No Known Allergies Allergy Verified 11/17/23 19:31 Consultations 11/17/23 19:45 ED Decision to Admit Stat Hospital Course (1) Supraventricular tachycardia: (2) Acute heart failure with preserved ejection fraction: (3) Restless leg syndrome: (4) Hypertension: (5) Obstructive sleep apnea: (6) CAD (coronary artery disease): (7) Hyperlipidemia: Plan Pt is a 63 yo male with PMH of CAD (s/p CABG x3), cardiac tumor (s/p resection), RUBEN, HLD, HTN, and COPD admitted due to chest pain found to be associated with SVT. SVT -- Resolved - CBC, CMP, TSH unremarkable. Troponins normal. K+ 3.5, replaced IV with goal > 4 - s/p adenosine 6mg, metoprolol 5mg, mag 1g, hydralazine 100mg PO, and lasix 20 mg in the ER; pt's HR now stable in the 60s - SVT resolved and did not recur - Will discharge today with close f/u with PCP and Editorial Manager (Dr. Jaime). As patient recently visited the hospital (05/11) due to similar symptoms, I question whether the option of ablation should be entertained or other measures. Will defer this discussion to patient's television station manager. HFpEF -- Chronic, stable - last echo 04/2023 showing normal LV function with EF 65-70% with severe LVH - No current clinical sign to suggest exacerbation - TTE ordered during this admission to ensure episode of SVT did not lead to deterioration in cardiac function HTN -- Chronic, stable - continue pt's home medications - Will re-start Entresto as this was recommended by patient's television station manager and patient had stopped due to pharmacy filling issue Its continuation may be assess by patient's television station manager in f/u appt HLD -- Chronic, stable - continue home repatha RLS -- Chronic, stable - continue home pramipexole COPD -- Chronic, stable - continue home inhalers RUBEN -- Chronic, stable - Continue CPAP Will discharge patient today with close Cardiology and PCP follow up. Total Time Total Time Spent Total Time Spent (In Minutes): <30 Discharge Plan Discharge Items Patient Disposition: Home - Self-Care Reason For Visit: SVT Discharge Diagnosis: SVT Activity: Resume your previous activity Non-emergency contact: Primary Care Provider and Editorial Manager Call non-emergency contact if: your symptoms worsen and your temperature is above 101 Follow-up/Referrals: Guillermo Stafford, [Primary Care Provider] - (Please reach out to your PCP office to schedule your hospital discharge follow up. ) Guanako Jaime, [Physician] - (Please reach out to your television station manager office to schedule your hospital discharge follow up. ) Diet: Heart Healthy Addtl Attending Provider Instructions: You were admitted due to a fast heart rate (supraventricular tachycardia). You were treated with medications that work to try and slow the heart rate with successful return to normal range. We ordered an ultrasound of your heart (echocardiogram) to make sure the fast heart rate did not affect your heart since you have history of heart failure. You will discuss these results with your television station manager in your follow up appointment after discharge, which we recommend should be within 1 week. We will also be re-starting your Entresto as was recommended by your television station manager in the past. Please take Entresto by mouth two times a day. You should also discuss this with them in your follow up appointment. A discharge summary will be sent to your primary care physician to ensure continuity of care. Please bring this discharge summary with you to your next office appointment so that your provider can review it at that time. Follow-up appointments: Make a follow-up appointment with your PCP within the next week. It is very important that you follow up with them shortly after discharge from the hospital. We requested a follow up appointment with your Editorial Manager in the next 1-2 weeks. Please call their office if you do not hear from them in the next few days. Keep all your follow-up appointments as already scheduled. If you cannot make an appointment, notify your provider. Medications: Your medication list has been reviewed and reconciled upon discharge to ensure accuracy and continuity of care. An updated list of all your medications is included with your hospital discharge paperwork. Please review this list closely, and make note of any changes. If you have any issues filling these prescriptions, please call [phone] and ask to leave a message for Dr. Vazquez. Take your medications as instructed; do not skip a dose of your medicines. Make sure all of your doctors know every medicine you are taking (including vhoe-sxx-lkiarzm medicines, vitamins, and supplements). Call your primary care provider before taking any new medicines (including over- the-counter medicines, vitamins, and supplements), because some of these may interact with your current medications, or may make your symptoms worse. Tell your primary care provider if you cannot afford your medications. CONTACT YOUR PRIMARY CARE PROVIDER if you experience any of the following: Worsening of symptoms Fever, chills, or fatigue Difficulty following your treatment plan, or difficulty taking medications CALL 911 OR GO TO THE EMERGENCY DEPARTMENT if you experience any of the following: Sudden, severe abdominal pain or nausea/vomiting Severe chest pain, or chest pain that radiates (moves) to your jaw or arm Sudden, severe shortness of breath or difficulty breathing Thank you for allowing us to participate in your care. Pending Studies at Discharge: No Stand-Alone Forms: My [facility], Smoking Cessation Medications and DC Order Prescriptions: New Entresto 97-103 mg tablet 1 tab PO BID Qty: 60 0RF Continued pramipexole 1 mg tablet 1 mg PO .COMPLEX Qty: 90 5RF Rx Instructions: TAKES 1 MG @ 1700, THEN 2 MG @ HS. hydralazine 100 mg tablet 100 mg PO TID candesartan 32 mg tablet 32 mg PO DAILY chlorthalidone 25 mg tablet 25 mg PO DAILY fluticasone propion-salmeterol [Advair Diskus] 500-50 mcg/dose blister with device 1 inh INHALATION BID metoprolol succinate 50 mg tablet extended release 24 hr 50 mg PO HS Repatha Syringe 140 mg/mL syringe 140 mg SUBCUT .Q2WK Rx Instructions: MONDAYS albuterol sulfate 90 mcg/actuation HFA aerosol inhaler 2 puff INHALATION Q4H PRN (Reason: Wheezing) furosemide [Lasix] 20 mg tablet 20 mg PO DAILY PRN (Reason: edema) Qty: 30 0RF Rx Instructions: take one tab for weight gain, leg swelling, or shortness of breath aspirin 81 mg Tablet,Delayed Release (Dr/Ec) 81 mg PO HS Discharge Orders: Discharge Order (Routine); Ordered 11/18/23 Ordered By: Mirella Gibbs/Other Patient Handouts: Supraventricular Tachycardia, Sacubitril/Valsartan Oral Tablet, SVT, Supraventricular Tachycardia Tx Admission Data Admit Date/Time: 11/17/23 20:35 Attending Provider: Lloyd Lerma Admit Provider: Shira Arciniega Primary Care Provider: Guillermo Stafford Other Providers: Olman De Leon Other Interventions: Discharge Summary Assessment (RN) Last Done: 11/18/23 12:41 Supervising Physician Co-Signing Physician Notes I personally examined the patient and verified all [place] points of history and exam, discussed case, and agree with decision making with Dr Vazquez feeling better. Feeling up to going home. Discussion of diagnosis and next steps. Vitals noted, in general he is awake and alert pleasant no distress. HEENT normocephalic atraumatic mucous membranes moist. Breathing unlabored no accessory muscle use good effort. Skin shows no rashes no pallor or icterus. Neuro without focal deficits. SVTfortunately back in sinus rhythm. Safe/stable for home. Outpatient PCP and cardiology follow-up. Suspect he would benefit from an SVT ablation but will defer to his primary television station manager's judgment. Otherwise as above Resident Activity Tracking Resident Involvement: Resident Care Provided Care Provided: Adult Hospital Medicine
--- NOTE | 2023-11-18 15:22 | XCELERA ---
[id number] [id number]
[2023-11-18] MEDS ORDERED: PRAMIPEXOLE DIHYDROCHLO 0.5 MG TAB PO SCH (17:00)
--- NOTE | 2023-11-18 18:23 | Billing Data ---
Date of Service November 18, 2023 Coding Level of Care Code 66352 IN/OBS DISCH 30 MIN/LESS
--- NOTE | 2023-11-19 06:03 | Electrocardiogram Report ---
Test Reason : Blood Pressure : / mmHG Vent. Rate : 161 BPM Atrial Rate : 000 BPM P-R Int : 000 ms QRS Dur : 090 ms QT Int : 288 ms P-R-T Axes : 000 047 258 degrees QTc Int : 471 ms Supraventricular tachycardia Abnormal ECG When compared with ECG of 03-MAY-2023 14:57, Vent. rate has increased BY 73 BPM Inverted T waves have replaced nonspecific T wave abnormality in Inferolateral leads Confirmed by Tomasz Newman ([id number]) on 11/19/2023 6:02:39 AM Referred By: Confirmed By:Tomasz Newman
== END 2023-11-18 13:11 | disposition home or self-care (01) | DRG 309 ==
LOC: SUATTDRO → ED 17:52 → SUATTDRO 20:35 → 2E 20:35